=== PATIENT | male | born 1940 | race Caucasian/White ===

== ENCOUNTER → 2016-10-19 | Outpatient (CLI) | payer MEDICARE, BC ==
--- NOTE | 2016-10-19 10:55 | USB ---
Reason for exam: clinical finding. Indicated problem(s): lump or thickening in the left breast. Physical Findings: Nurse Summary: Patient complains of left breast retroareolar lump x 3-4 weeks, intermittent tenderness (nurse mm). US Breast LT Left breast ultrasound including all four quadrants, the retroareolar region and axilla demonstrates a 1.3 x 0.8 x 1.0cm irregular hypoechoic area at the posterior nipple. These results were verbally communicated with the patient and result sheet given to the patient on 10/19/16. ASSESSMENT: Incomplete: need additional imaging evaluation, BI-RAD 0 RECOMMENDATION: Follow-up diagnostic mammogram of both breasts. RAFAEL
--- NOTE | 2016-10-19 10:57 | MM ---
Reason for exam: additional evaluation requested from abnormal screening. [facility] Diagnostic Mammo w CAD CARMEN Bilateral CC and MLO view(s) were taken. The breast tissue is almost entirely fat. Asymmetric breast tissue in the left subareolar position correlates with ultrasound consistent with asymmetric gynecomastia. These results were verbally communicated with the patient and result sheet given to the patient on 10/19/16. ASSESSMENT: Benign, BI-RAD 2 RECOMMENDATION: Clinical management of both breasts. Manage patient on a clinical basis.
== END | disposition home or self-care (01) ==
LOC: RADUSWWP 08:51
PROVIDERS: ATTEND Family Medicine
DX: N63 Unspecified lump in breast (principal)
CPT/HCPCS: 76641; G0204

== ENCOUNTER → 2018-04-08 | Outpatient (CLI) | payer MEDICARE, BC ==
[2018-04-08 12:35] LABS: Blood Urea Nitrogen 17 mg/dL (9-20)
== END | disposition home or self-care (01) ==
LOC: LABWHC1 11:38
PROVIDERS: ATTEND Physical Medicine & Rehabilitation
DX: N28.9 Disorder of kidney and ureter, unspecified (principal)
CPT/HCPCS: 36415; 82565; 84520

== ENCOUNTER → 2018-10-01 | Outpatient (CLI) | payer MEDICARE, BC ==
[2018-10-01 11:52] LABS: Appearance,Urine Clear (Clear); Bilirubin,Urine Negative (Negative); Blood,Urine Negative (Negative); Color,Urine Yellow; Glucose,Urine (UA) Negative (Negative); Ketones,Urine Negative (Negative); Leukocyte Esterase,Urine Negative (Negative); Nitrite,Urine Negative (Negative); PH, Urine 5.5 (5.0-8.0); Protein,Urine Negative (Negative); Specific Gravity,Urine 1.016 (1.001-1.035); Urobilinogen,Urine <2.0 mg/dL (<2.0)
[2018-10-01 11:57] LABS: HCT 43.5 % (39.0-53.0); HGB 14.6 gm/dL (13.0-17.5); MCH 33.2 pg (25.0-35.0); MCHC 33.4 g/dL (31.0-37.0); MCV 99.3 fL (80.0-100.0); Mean Platelet Volume 7.3; Platelet Count 188 k/uL (150-450); RBC 4.38 m/uL (4.30-5.90); RDW 12.9 % (11.5-15.5); WBC 8.8 k/uL (3.8-10.6)
[2018-10-01 12:04] LABS: INR 0.9 (<1.2); Partial Thromboplastin Time 23.5 sec (22.0-30.0); Prothrombin Time 9.7 sec (9.0-12.0)
[2018-10-01 12:07] LABS: Albumin 4.2 g/dL (3.5-5.0); Calcium 9.5 mg/dL (8.4-10.2); Potassium 4.5 mmol/L (3.5-5.1); Total Bilirubin 0.6 mg/dL (0.2-1.3); Total Protein 6.3 g/dL (6.3-8.2)
== END | disposition home or self-care (01) ==
LOC: LABPAT 11:07
PROVIDERS: ATTEND Orthopaedic Surgery
DX: Z01.812 Encounter for preprocedural laboratory examination (principal)
CPT/HCPCS: 80053; 81003; 85027; 85610; 85730; 87070

== ENCOUNTER → 2018-10-03 | Outpatient (CLI) | payer MEDICARE, BC | END | disposition home or self-care (01) | LOC: LABWHC1 09:00 | PROVIDERS: ATTEND Orthopaedic Surgery | DX: Z01.812 Encounter for preprocedural laboratory examination (principal) | CPT/HCPCS: 36415; 86850; 86900; 86901 ==

== ENCOUNTER 2018-10-14 05:40 | Inpatient (IN) | payer MEDICARE, BC ==
[2018-10-09 14:23] VITALS: BMI 27.4
[~2018-10-14 05:40] MED LIST: ACETAMINOPHEN TAB 500 MG TAB PO ONE; DEXAMETHASONE SOD PHOSPHATE 10 MG/ML 1 ML VIAL IV ONE; HYDROmorphone 0.5 MG/0.5 ML SYRINGE IVP PRN; MELOXICAM 7.5 MG TAB PO ONE; MIDAZOLAM (PF) 2 MG/2 ML VIAL IV PRN; ONDANSETRON 4 MG/2 ML VIAL IVP ONE; TRANEXAMIC ACID 1,000 MG in SODIUM CHLORIDE 0.9% 50 ML IVPB ONE; ceFAZolin IN SWFI 2 GM/20 ML SYRINGE IVP ONE
[2018-10-14] MEDS ORDERED: LIDOCAINE 1% 20 ML VIAL (10MG/ML) FOR IV START SQ ONE (06:28)
[2018-10-14] MEDS: LACTATED RINGERS 1,000 ML IV SCH (06:36)
[2018-10-14] MEDS ORDERED: TRANEXAMIC ACID 1,000 MG/10 ML VIAL ONE (06:52)
[2018-10-14] MEDS ORDERED: PROPOFOL 10 MG/ML 20 ML VIAL IV ONE (06:52)
[2018-10-14] MEDS ORDERED: fentaNYL (PF) 50 MCG/ML 2 ML AMP ONE (06:52)
[2018-10-14] MEDS ORDERED: SODIUM CHLORIDE 0.9% IRRIG 1,000 ML BTL IRRIGATION ONE (06:52)
[2018-10-14] MEDS ORDERED: ePHEDrine SULFATE/0.9% NACL/PF 50 MG/5 ML SYRINGE IV ONE (06:52)
[2018-10-14] MEDS ORDERED: SODIUM CHLORIDE 0.9% 100 ML BAG ONE (06:52)
[2018-10-14] MEDS ORDERED: MIDAZOLAM 2 MG/2 ML VIAL ONE (06:52)
[2018-10-14] MEDS ORDERED: HEPARIN SODIUM,PORCINE 10,000 UNIT/ML 1 ML VIAL ONE (06:52)
[2018-10-14] MEDS ORDERED: hydrOXYzine PAMOATE 25 MG CAP PO PRN (06:56)
[2018-10-14] MEDS ORDERED: ONDANSETRON 4 MG/2 ML VIAL IVP PRN (06:56)
[2018-10-14] MEDS ORDERED: NALOXONE 0.4 MG/ML 1 ML VIAL IV PRN (06:56)
[2018-10-14] MEDS ORDERED: DIAZEPAM 5 MG TAB PO PRN (06:56)
[2018-10-14] MEDS ORDERED: MAGNESIUM HYDROXIDE 2,400 MG/10 ML CUP PO PRN (06:56)
[2018-10-14] MEDS ORDERED: HYDROmorphone 0.5 MG/0.5 ML SYRINGE IVP PRN ×3 (06:56)
[2018-10-14] MEDS ORDERED: HYDROcodone/APAP 5-325MG 1 EACH TAB PO PRN (06:56)
[2018-10-14] MEDS ORDERED: ceFAZolin 3,000 MG in SODIUM CHLORIDE 0.9% IRRIGATIO 3,000 ML IRRIGATION ONE (06:57)
[2018-10-14] MEDS: ROPIVACAINE 246.25 MG, EPINEPHrine 0.5 MG, KETOROLAC 30 MG, cloNIDine HCL/PF 80 MCG, WA... MISCELLANE ONE ×10 (07:06→08:37)
[2018-10-14] MEDS ORDERED: LACTATED RINGERS 1,000 ML IV ONE (08:39)
--- NOTE | 2018-10-14 09:01 | P.OP ---
Date of Procedure: 10/14/18 Preoperative Diagnosis: Severe osteoarthritis right hip Postoperative Diagnosis: Severe osteoarthritis right hip Procedure(s) Performed: Right total hip arthroplasty with a direct anterior approach Implants: Quintana and nephew Polarstem size 8 standard Quintana & Nephew R3, 3 hole acetabular shell, 62 mm Quintana [employer] Nephew reflection 6.5 mm cancellus screw, 20 mm 2, 25 mm Quintana & Nephew Oxinium femoral head 36 m, +8 All components were press-fit. The articulation is Oxinium on polyethylene. Anesthesia: spinal Surgeon: Jorge Alberto Sands Mixing Operator #1: Teodora Saldaña Estimated Blood Loss (ml): 450 (260 mL returned with Cell Saver) Pathology: other Condition: stable Disposition: PACU Indications for Procedure: After failure of conservative treatment we discussed the surgical and nonsurgical treatment options at length. Patient wishes to proceed with a total hip arthroplasty with a direct anterior approach. Complications specific to this procedure were discussed at length, including but not limited to infection, leg length discrepancy, dislocation, and nerve injury. Patient is aware of all these complications and informed consent was obtained Operative Findings: The operative findings are consistent with severe osteoarthritis of the right hip Description of Procedure: Patient was seen and evaluated in the preoperative area, consent was reviewed, and the surgical site was marked with a skin marker. Patient was then brought to the operating room and given prophylactic antibiotics intravenously. 1 g of Tranexamic acid was also given. A spinal anesthetic was administered by the anesthesia department. The patient was then placed on the Derby table with the bony prominences well-padded. The hip area was then prepped and draped in usual sterile fashion. A universal timeout was then performed, which confirmed the patient's name, surgical site, ALLERGIES, and procedure being performed. Next the incision site was located at 1 cm distal and 1 cm lateral to the anterior superior iliac spine. The skin and subcutaneous tissues were sharply incised. Incision was carefully dissected down to the fascia overlying the tensor fascia eddy muscle. This fascia was then incised in line with the incision. Next, using blunt finger dissection, the tensor fascia eddy muscle was dissected off its investing fascia. The muscle was then carefully retracted laterally with a cobra retractor over the lateral neck of the femur. Next, the circumflex vessels were identified and cauterized using the AquaMantis device. The anterior hip capsule was then exposed. The capsule was then opened and an inverted T fashion. Cobra retractors were then placed intracapsularly. The proximal femur was then visualized. The femoral neck was then osteotomized appropriate level above the lesser trochanter. Small amount of traction was placed with the Derby table. A small wedge of bone was then removed from the remaining femoral head. Next, using a corkscrew femoral head was easily removed from the acetabulum. On gross visual inspection, the femoral head had complete loss of articular cartilage in multiple periarticular osteophytes. Attention was then turned to the acetabulum. the acetabulum was exposed and any remaining labrum was excised. Sequential reaming of the acetabulum was performed using fluoroscopic guidance. When the appropriate size was reached, a trial was then placed. The position and fit of the trial was checked with fluoroscopy. The trial was then removed. Then, using fluoroscopic guidance, the final implant was impacted at 20 of anteversion and 40 of abduction, and fully seated in the acetabulum. 3 screws were then placed in the acetabulum. Again fluoroscopy was used to check position of the screws. Next, the liner was then impacted, with a 20 elevated liner located in the anterior superior quadrant. Component locking was confirmed. Attention was then directed to the femur. With the aid of the Derby table, the femur was externally rotated to approximately 130, extended, and abducted under the opposite leg. A side hook was then placed under the proximal femur, and the side hook elevator was used to elevate the proximal femur. Retractors were then placed. A capsular release was performed, as well as a release of the conjoined tendon, which afforded excellent visualization of the proximal femur. Next, a box osteotome was used to lateralize the proximal femur. A handicraft or hobby shop manager was then used to locate the femoral canal. Sequential broaching was then performed with appropriate size which afforded excellent fixation in the proximal femur. A trial was then placed with appropriate head and neck, and the hip was gently reduced with the aid of the Derby table. Fluoroscopy was then used to check position of the components, as well as to ensure equal leg lengths. The hip was then gently dislocated and the trials were then removed. Final implants were then impacted and the hip was again reduced. Final fluoroscopic x-rays confirmed that the components were in anatomic position, as well as equal leg lengths. The hip was also taken through range of motion, and found to be stable. The hip was then copiously irrigated with antibiotic solution with pulsatile lavage. The hip was then irrigated with Irrisept solution. The soft tissues were then injected with a ropivacaine solution, which consisted of 246.25 mg of ropivacaine, 0.5 mg of epinephrine, 30 mg of Toradol, 80 g of clonidine, and 48.45 mL of sterile water, for a total of 100 mL of fluid injected. A second dose of 1 g of Tranexamic acid was also given. the fascia was then closed with 2-0 strata fix suture. The subcutaneous tissue was closed with 3-0 Vicryl. The subcuticular tissue was closed with 3-0 strata fix suture. The skin was then closed with Dermabond glue and a sterile silver dressing. The patient was then transferred to the recovery room in stable condition. The production assistant GAGAN Guy was required due to the complexity of surgery, and the need for skilled carpenter's assistant for positioning, draping, exposure, retraction, and closure of the wound.
--- NOTE | 2018-10-14 09:02 | FL ---
EXAMINATION TYPE: FL guidance operating room, XR Hip Limited RT DATE OF EXAM: 10/14/2018 CLINICAL HISTORY: Hip pain and osteoarthritis TECHNIQUE: Fluoroscopy. Intraoperative limited views right hip. COMPARISON: None. FINDINGS: Fluoroscopic guidance was provided during right hip replacement procedure performed by Dr. Sands. A total of 1 minute 13 seconds of fluoroscopic time was utilized during the procedure and 2 spot intraoperative images are acquired. Intraoperative images acquired show metallic hardware satisfactory in position on single frontal proj ection. IMPRESSION: As Above.
--- NOTE | 2018-10-14 09:55 | XR ---
EXAMINATION TYPE: XR Hip Limited RT DATE OF EXAM: 10/14/2018 COMPARISON: NONE HISTORY: Postop TECHNIQUE: One view submitted. FINDINGS: There is a prosthetic hip in near anatomic alignment. There is soft tissue edema and emphysema. Surg ical clips in the pelvis. IMPRESSION: 1. Postoperative change. Appears in near-anatomic alignment.
[2018-10-14] MEDS ORDERED: FAMOTIDINE 20 MG TAB PO PRN (14:05)
[2018-10-14] MEDS: HYDROcodone/APAP 5-325MG 1 EACH TAB PO PRN (15:37)
[2018-10-14] MEDS: SODIUM CHLORIDE 0.9% 1,000 ML IV SCH ×2 (15:38→23:56)
[2018-10-14] MEDS: MELOXICAM 7.5 MG TAB PO SCH (15:50)
[2018-10-14] MEDS: ceFAZolin IN SWFI 2 GM/20 ML SYRINGE IVP SCH ×2 (16:16→23:57)
--- NOTE | 2018-10-14 17:48 | CONS ---
CONSULTATION DATE OF CONSULTATION: 10/14/2018 REASON FOR CONSULTATION: Medical management requested by Dr. Sands. CONSULTATION: This is a pleasant 78-year-old patient of Dr. Lester out of [place]. Chronic stable medical conditions include GERD, hyperlipidemia, hypertension and osteoarthritis in other joints. The patient has undergone right total hip arthroplasty. Postprocedure pain is controlled. No nausea, vomiting. No chest pain or short of breath. Lying in bed. Denies any cardiac history. REVIEW OF SYSTEMS: CONSTITUTIONAL: None. HEENT: None. RESPIRATORY: None. CARDIOVASCULAR: None. GASTROINTESTINAL: Heartburn. GENITOURINARY: None. MUSCULOSKELETAL: Arthritic pain in knees and the back. DERMATOLOGICAL, HEMATOLOGIC, LYMPHATIC: none. PSYCHIATRY none. NEUROLOGICAL: None. PAST MEDICAL HISTORY: GERD, hyperlipidemia, hypertension, osteoarthritis, cancer of the right ureter, right hydronephrosis, bladder cancer, skin cancer removal. PAST SURGICAL HISTORY: Back surgery, tonsillectomy, distal right with ureteral implant, skin cancer removed. SOCIAL HISTORY: . Patient smoked for about 45-50 years, stopped in 1999. Alcohol occasionally. The patient used to work as a clerk. . FAMILY HISTORY: Mother of emphysema. HOME MEDICATIONS: 1. Zocor 40 mg q.h.s. 2. Zantac 150 mg p.o. daily p.r.n. 3. Vasotec 10 mg q.h.s. 4. Aspirin 81 mg p.o. daily. 5. Tylenol 500 mg p.o. t.i.d. p.r.n. ALLERGIES: None. PHYSICAL EXAMINATION: VITAL SIGNS: Temperature 97.9, pulse 68, respiratory rate 16, blood pressure 126/68, pulse ox 96% on room air. GENERAL APPEARANCE: Average build, lying in bed, comfortable. EYES: Pupils equal. Conjunctivae normal. HEENT external appearance of nose and ears normal. Oral cavity normal. NECK: JVD not raised. Mass not palpable. RESPIRATORY: Effort normal. LUNGS: Fair air entry. CARDIOVASCULAR: First and second sounds normal. No edema. ABDOMEN: Soft, nontender. Liver and spleen not palpable. LYMPHATICS: No lymph nodes palpable in the neck or axillae. PSYCHIATRY: Alert and oriented x3. Mood and affect normal. NEUROLOGICAL: Pupils equal. Cranial nerves grossly intact. Power and sensation grossly intact. MUSCULOSKELETAL: Evidence of some osteoarthritis especially in the hands. Dressing over the right hip. INVESTIGATIONS: Blood work from October 01, 2018, shows a white count 8.8, hemoglobin 14.6, potassium 4.5, BUN and creatinine is normal. ASSESSMENT: 1. Right total hip arthroplasty. 2. Gastroesophageal reflux disease. 3. Hyperlipidemia. 4. Primary osteoarthritis, especially in knees and lower back. PLAN: Home medications are resumed. The patient has got pain medications in place. Aspirin 325 p.o. b.i.d. for DVT prophylaxis. Care was discussed with the patient. Questions were answered. Thank you Dr. Sands. Copy to Dr. Lester [place]. MMODL / IJN: [id number] /
[2018-10-14] MEDS ORDERED: LISINOPRIL 20 MG TAB PO SCH (21:00)
[2018-10-14] MEDS ORDERED: ATORVASTATIN 20 MG TAB PO SCH (21:00)
[2018-10-14] MEDS ORDERED: SENNOSIDES-DOCUSATE SODIUM 1 EACH TAB PO SCH (21:00)
[2018-10-14] MEDS: ASPIRIN 325 MG TAB PO SCH (21:08)
[2018-10-15] MEDS: HYDROcodone/APAP 5-325MG 1 EACH TAB PO PRN ×2 (01:31→12:18)
[2018-10-15] MEDS: LACTATED RINGERS 1,000 ML IV SCH (02:55)
[2018-10-15] MEDS: MELOXICAM 7.5 MG TAB PO SCH (07:02)
[2018-10-15] MEDS: ASPIRIN 325 MG TAB PO SCH (07:02)
[2018-10-15 07:06] VITALS: BP 103/63; PULSE 67; RESP 16; TEMP 98.4
[2018-10-15 08:24] LABS: Basophils % (A) 0 %; Eosinophils # (A) 0.1 k/uL (0-0.7); Eosinophils % (A) 1 %; HCT 32.2 % (39.0-53.0); Lymphocytes # (A) 1.3 k/uL (1.0-4.8); Lymphocytes % (A) 13 %; MCH 33.8 pg (25.0-35.0); MCHC 33.5 g/dL (31.0-37.0); MCV 100.9 fL (80.0-100.0); Mean Platelet Volume 7.8; Monocytes # (A) 0.7 k/uL (0-1.0); Monocytes % (A) 7 %; Neutrophils # (A) 7.5 k/uL (1.3-7.7); Neutrophils % (A) 77 %; Platelet Count 145 k/uL (150-450); RBC 3.19 m/uL (4.30-5.90); WBC 9.8 k/uL (3.8-10.6)
[2018-10-15 08:47] LABS: HGB 10.8 gm/dL (13.0-17.5)
--- NOTE | 2018-10-15 09:07 | P.DS ---
Providers Date of admission: 10/14/18 05:40 Expected date of discharge: 10/15/18 Attending physician: Jorge Alberto Sands Consults: 10/14/18 06:56 Consult Physician Routine Consulting Provider: Hugo Broussard Consult Reason/Comments: medical management Do you want consulting provider notified?: Yes Primary care physician: Enrico Lester - Discharge Diagnosis(es) (1) Osteoarthritis of right hip Current Visit: Yes Status: Acute (2) Status post total hip replacement, right Current Visit: Yes Status: Acute Hospital Course: This is a 78-year-old male with known history of degenerative arthritis of the right hip. The patient presents for evaluation. After discussion and consideration patient elects to proceed with total hip arthroplasty. The patient is seen preoperatively by Dr. Sands and medically cleared for surgery by their primary care physician. Patient is admitted to [facility] on 10/14/2018 for total hip arthroplasty. The procedures performed without complication or sequelae. The patient is doing well postoperatively. Labs and vital signs are stable on day of discharge. On day of discharge patient's hip incision is healing well. There is minimal erythema. There is no drainage noted at this time. There is minimal soft tissue swelling to the hip and thigh. Patient has full foot and ankle motion without difficulty or pain. Neurovascular status to the right lower extremity is intact. Patient is discharged home in good condition. Please see med rec for accurate list of home medications. Plan - Discharge Summary Discharge Rx Participant: No New Discharge Prescriptions: New Aspirin 325 mg PO BID #60 tab HYDROcodone/APAP 5-325MG [[place] 5-325] 1 - 2 tab PO Q6HR PRN #56 tab PRN Reason: Pain Sennosides [Senokot] 1 tab PO BID #60 tablet No Action Simvastatin [Zocor] 40 mg PO HS Aspirin 81 mg PO DAILY Ranitidine HCl [Zantac] 150 mg PO DAILY PRN PRN Reason: GERD Acetaminophen Tab [Tylenol] 500 mg PO TID PRN PRN Reason: Pain Enalapril [Vasotec] 10 mg PO HS Discharge Medication List Acetaminophen Tab [Tylenol] 500 mg PO TID PRN 10/16/14 [History] Aspirin 81 mg PO DAILY 10/16/14 [History] Enalapril [Vasotec] 10 mg PO HS 10/16/14 [History] Ranitidine HCl [Zantac] 150 mg PO DAILY PRN 10/16/14 [History] Simvastatin [Zocor] 40 mg PO HS 10/16/14 [History] Aspirin 325 mg PO BID #60 tab 10/15/18 [Rx] HYDROcodone/APAP 5-325MG [[place] 5-325] 1 - 2 tab PO Q6HR PRN #56 tab 10/15/18 [ Rx] Sennosides [Senokot] 1 tab PO BID #60 tablet 10/15/18 [Rx] Follow up Appointment(s)/Referral(s): Jorge Alberto Sands DO [Doctor of Osteopathic Medicine] - 2 Weeks Activity/Diet/Wound Care/Special Instructions: Weightbearing as tolerated with walker. Leave dressing intact. Dressing may be removed by home care nurse in 10 days. May shower with dressing on. Please follow-up with [facility] in 2 weeks and call with any questions or concerns, . Discharge Disposition: HOME WITH HOME HEALTH SERVICES
[2018-10-15] MEDS: SODIUM CHLORIDE 0.9% 1,000 ML IV SCH (14:50)
--- NOTE | 2018-10-16 00:58 | PN ---
PROGRESS NOTE DATE OF SERVICE: 10/15/2018. PRESENTING COMPLAINT: Right hip surgery. INTERVAL HISTORY: Patient is status post right hip surgery, doing better. Did work with therapy. No new issues. No chest pain or short of breath. Did tolerate his diet. No chest pain. REVIEW OF SYSTEMS: Done for constitutional, cardiovascular, GI, pulmonary, musculoskeletal; relevant findings as above. CURRENT MEDICATIONS: Reviewed. PHYSICAL EXAMINATION: Temperature 98.4, pulse 57, respiratory rate 18, blood pressure 103/63, pulse ox 96% on room air. GENERAL APPEARANCE: Sitting up, comfortable. EYES: Pupils equal. Conjunctivae normal. NECK: JVD not raised. Mass not palpable. Respiratory effort normal. LUNGS: Clear. CARDIOVASCULAR: 1st and 2nd heart sounds are normal. No edema. ABDOMEN: Soft, nontender. Liver and spleen not palpable. PSYCHIATRY: Alert and oriented x3. Mood and affect normal. INVESTIGATIONS: Hemoglobin 10.8. ASSESSMENT: 1. Right total hip arthroplasty. 2. Gastroesophageal reflux disease. 3. Hyperlipidemia. 4. Primary osteoarthritis, especially in the knees and lower back. 5. Acute blood loss anemia expected from surgery. PLAN: Patient is stable. Continue current medication and treatment plan. Patient will follow up with his family doctor shortly after discharge. Thank you, Dr. Sands. MMALYSSIAL / ELIZABETHN: [id number] /
== END 2018-10-15 15:00 | disposition home health service (06) | DRG 470 ==
LOC: 2ORMAIN 05:40 → 4SSUR 09:25
PROVIDERS: ADMIT Orthopaedic Surgery; ATTEND Orthopaedic Surgery
PROC: 0SR906A Replacement of Right Hip Joint with Oxidized Zirconium on Polyethylene Synthetic Substitute, Uncemented, Open Approach (ICD-10-PCS; principal; 2018-10-14 07:00)
DX: M16.11 Unilateral primary osteoarthritis, right hip (principal); D62 Acute posthemorrhagic anemia; E78.5 Hyperlipidemia, unspecified; I10 Essential (primary) hypertension; K21.9 Gastro-esophageal reflux disease without esophagitis; Z79.82 Long term (current) use of aspirin; Z82.5 Family history of asthma and other chronic lower respiratory diseases; Z85.51 Personal history of malignant neoplasm of bladder; Z85.828 Personal history of other malignant neoplasm of skin; Z79.899 Other long term (current) drug therapy; Z87.891 Personal history of nicotine dependence
CPT/HCPCS: 36415; 73501; 85025; 86850; 86891; 86900; 86901; 88305; 88311

== ENCOUNTER → 2019-02-14 | Outpatient (CLI) | payer MEDICARE, BC ==
--- NOTE | 2019-02-15 16:02 | US ---
EXAMINATION TYPE: US duplex aorta DATE OF EXAM: 02/14/2019 COMPARISON: CT 2016 CLINICAL HISTORY: R10.9 Abdominal Pain. Difficulty breathing EXAM MEASUREMENTS: Abdominal Aorta: Proximal: 2.3 x 2.6cm Mid: 2.0 x 2.2cm Distal: 1.8 x 1.9cm Right Iliac: 0.9 x 1.2cm Left Iliac: 1.0 x 1.2cm No AAA seen at this time. IMPRESSION: No evidence of abdominal aortic aneurysm. No sign of hemodynamic stenosis.
== END | disposition home or self-care (01) ==
LOC: RADUSWWP 15:34
PROVIDERS: ATTEND Family Medicine
DX: R10.9 Unspecified abdominal pain (principal)
CPT/HCPCS: 93979

== ENCOUNTER → 2019-10-15 | Outpatient (CLI) | payer MEDICARE, BC ==
--- NOTE | 2019-10-15 07:46 | CT ---
EXAMINATION TYPE: CT chest w con DATE OF EXAM: 10/15/2019 COMPARISON: NONE HISTORY: Other specified pleural conditions CT DLP: 689 mGycm. Automated Exposure Control for Dose Reduction was Utilized. TECHNIQUE: CT scan of the thorax is performed following with IV Contrast, patient injected with 100 ml mL of Isovue 300. FINDINGS: LUNGS: Glass opacity is seen within the right lower lobe with focal 2 mm nodular component on image 3 9. MEDIASTINUM: There are no greater than 1 cm hilar or mediastinal lymph nodes. No pericardial effusi on is seen. Moderate coronary artery calcifications of the left anterior descending coronary artery. OTHER: Mild degree hepatic steatosis is seen in the upper abdomen. There is hiatal hernia that is sma ll with herniation of mesenteric fat through the diaphragmatic hiatus. There is an anterior osteophyt es of diffuse idiopathic skeletal hyperostosis. IMPRESSION: Focal groundglass opacity in the right lower lobe. Primary diagnostic consideration is fo r infectious etiology such as pneumonia although inflammatory process is possible. 2 mm nodular compo nent is seen. Recommendation is for after treatment to ensure resolution. 2. Incidental findings of hiatal hernia with herniation of mesenteric fat into the posterior mediasti num, mild degree hepatic steatosis, moderate coronary artery calcifications, and diffuse idiopathic s keletal hyperostosis.
== END | disposition home or self-care (01) ==
LOC: RADCTMAIN 06:26
PROVIDERS: ATTEND Family Medicine
DX: J98.4 Other disorders of lung (principal); R91.1 Solitary pulmonary nodule; N17.9 Acute kidney failure, unspecified
CPT/HCPCS: 82565; 84520; 71260; 36415; Q9967

== ENCOUNTER 2019-11-21 09:05 | Observation (INO) | payer MEDICARE, BC ==
[2019-11-18 14:59] VITALS: BMI 27.4
[~2019-11-21 09:05] MED LIST changes: -ACETAMINOPHEN TAB 500 MG TAB PO ONE; -DEXAMETHASONE SOD PHOSPHATE 10 MG/ML 1 ML VIAL IV ONE; -HYDROmorphone 0.5 MG/0.5 ML SYRINGE IVP PRN; +LIDOCAINE 1% (10MG/ML) FOR IV START INTRADERMA PRN; -MELOXICAM 7.5 MG TAB PO ONE; -MIDAZOLAM (PF) 2 MG/2 ML VIAL IV PRN; -ONDANSETRON 4 MG/2 ML VIAL IVP ONE; -TRANEXAMIC ACID 1,000 MG in SODIUM CHLORIDE 0.9% 50 ML IVPB ONE; -ceFAZolin IN SWFI 2 GM/20 ML SYRINGE IVP ONE
[2019-11-21] MEDS ORDERED: ATENOLOL 25 MG TAB PO STA (11:09)
[2019-11-21] MEDS ORDERED: DILTIAZEM DRIP BOLUS FROM BAG 1 MG SOLN IV ONE (12:03)
--- NOTE | 2019-11-21 12:18 | P.CRDCN ---
History of Present Illness History of present illness: HISTORY OF PRESENTING ILLNESS This is a pleasant 79-year-old male past medical history significant for hypertension. He follows in the office with Dr. Jefferson. We have been asked to see in consultation for new onset atrial fibrillation with rapid ventricular rates. He presented to the hospital for an elective outpatient EGD with Dr. Ng this morning and upon attaching to the monitor he was found to be in atrial fibrillation with heart rates fluctuating between 140 and 150 bpm. He denies symptoms of chest pain, shortness of breath, dizziness or palpitations. DIAGNOSTICS EKG reveals atrial fibrillation with rapid ventricular rate of 125. Current cardiac medications include atenolol. REVIEW OF SYSTEMS At the time of my exam: CONSTITUTIONAL: Denies fever or chills. CARDIOVASCULAR: Denies chest pain, shortness of breath, orthopnea, PND or palpitations. RESPIRATORY: Denies cough. GASTROINTESTINAL: Denies abdominal pain, diarrhea, constipation, nausea or vomiting. MUSCULOSKELETAL: Denies myalgias. NEUROLOGIC: Denies numbness, tingling or weakness. ENDOCRINE: Denies fatigue, weight change, polydipsia or polyurina. GENITOURINARY: Denies burning, hematuria or urgency with micturation. HEMATOLOGIC: Denies history of anemia or bleeding. PHYSICAL EXAMINATION Blood pressure 136/75 heart rate 120 afebrile and maintaining oxygen saturation on room air. CONSTITUTIONAL: No apparent distress. HEENT: Head is normocephalic. Pupils are equal, round. Sclerae anicteric. Mucous membranes of the mouth are moist. No JVD. No carotid bruit. CHEST EXAMINATION: Lungs are clear to auscultation. No chest wall tenderness is noted on palpation or with deep breathing. HEART EXAMINATION: Irregular rate and rhythm. S1, S2 heard. No murmurs, gallops or rub. ABDOMEN: Soft, nontender. Positive bowel sounds. EXTREMITIES: 2+ peripheral pulses, no lower extremity edema and no calf tenderness. NEUROLOGIC EXAMINATION: Patient is awake, alert and oriented x3. ASSESSMENT Atrial fibrillation with rapid ventricular rate Hypertension PLAN Admit to Selective Care unit. Initiate cardizem infusion and bolus along with Eliquis for thromboemolic protection. Check CBC, BMP, magnesium and TSH. Obtain 2D echocardiogram and doppler study to assess cardiac structure and function. Further recommendations to follow based on clinical course. Thank you kindly for this consultation. Nurse Practitioner note has been reviewed, I agree with a documented findings and plan of care. Patient was seen and examined. Past Medical History Past Medical History: Cancer, GERD/Reflux, Hyperlipidemia, Osteoarthritis (OA) Additional Past Medical History / Comment(s): Cancer R ureter, R hydronephrosis,bladder ca, skin cancer , States no HTN-takes rx for thickened wall of herart., enlarged prostate. History of Any Multi-Drug Resistant Organisms: None Reported Past Surgical History: Back Surgery, Joint Replacement, Tonsillectomy Additional Past Surgical History / Comment(s): 03/01/16 Distal R ureterectomy with ureteral reimplant., 01/2016 R ureteroscopy with bx and vaporization, removal of skin cancer from rt shoulder/R bicep, colonoscopies with polypectomy, Total Right Hip Past Anesthesia/Blood Transfusion Reactions: No Reported Reaction Past Psychological History: No Psychological Hx Reported Additional Psychological History / Comment(s): . Smoking Status: Former smoker Past Alcohol Use History: Rare Additional Past Alcohol Use History / Comment(s): QUIT 1999- WAS UP TO 2 PPD WHEN HE QUIT- smoked 45-50 yrs. Past Drug Use History: None Reported - Past Family History Mother Family Medical History: COPD Additional Family Medical History / Comment(s): Mother at age 77 yrs from emphysema Father Family Medical History: Cancer Additional Family Medical History / Comment(s): Father of complications with his prostate cancer at the age of 65 yrs. Medications and Allergies Home Medications Medication Instructions Recorded Confirmed Type Aspirin 81 mg PO DAILY 10/16/14 11/21/19 History Simvastatin [Zocor] 40 mg PO HS 10/16/14 11/21/19 History Acetaminophen Tab [Tylenol] 1,250 mg PO TID PRN 11/18/19 11/21/19 History Famotidine 40 mg PO HS 11/18/19 11/21/19 History Metoprolol Succinate (ER) [Toprol 25 mg PO HS 11/18/19 11/21/19 History Xl] Allergies Allergy/AdvReac Type Severity Reaction Status Date / Time No Known Allergies Allergy Verified 11/18/19 14:37 Physical Exam Vitals: Vital Signs Temp Pulse Resp BP Pulse Ox 11/21/19 09:29 97.3 F L 120 H 16 136/75 100 Intake and Output 11/20/19 11/21/19 11/21/19 22:59 06:59 14:59 Other: Weight 93 kg Results Current Medications Generic Name Dose Route Start Last Admin Trade Name Freq PRN Reason Stop Dose Admin Apixaban 5 mg 11/21/19 12:15 Eliquis PO BID VY Diltiazem HCl 5 mg 11/21/19 12:03 Cardizem Drip Bolus From Bag IV 11/21/19 12:04 ONCE ONE Lactated Ringer's 1,000 mls @ 20 mls/hr 11/21/19 06:03 Lactated Ringers IV .Q24H VY Diltiazem HCl 125 mg/ Sodium 125 mls @ 5 mls/hr 11/21/19 12:15 Chloride IV .Q24H VY 5 MG/HR Lidocaine HCl 0.1 ml 11/21/19 06:03 .Xylocaine 1% Inj (10mg/Ml) For Iv Start INTRADERMA PER PROTOCOL PRN IV Start Metoprolol Tartrate 25 mg 11/21/19 21:00 Lopressor PO BID VY Non-Formulary Medication 40 mg 11/21/19 21:00 Simvastatin PO HS VY Intake and Output 11/20/19 11/21/19 11/21/19 22:59 06:59 14:59 Other: Weight 93 kg Patient Weight 11/22/19 06:59 Weight 93 kg
[2019-11-21] MEDS: LACTATED RINGERS 1,000 ML IV SCH (12:22)
[2019-11-21] MEDS: APIXABAN 5 MG TAB PO SCH ×2 (12:30→20:22)
[2019-11-21] MEDS: DILTIAZEM 125 MG in SODIUM CHLORIDE 0.9% 100 ML IV SCH (12:40)
[2019-11-21] MEDS ORDERED: diphenhydrAMINE 50 MG/ML 1 ML VIAL IVP ONE (12:48)
[2019-11-21 13:58] LABS: Basophils # (A) 0.1 k/uL (0-0.2); Basophils % (A) 1 %; Eosinophils # (A) 0.2 k/uL (0-0.7); Eosinophils % (A) 2 %; HCT 47.6 % (39.0-53.0); HGB 15.3 gm/dL (13.0-17.5); Lymphocytes # (A) 1.5 k/uL (1.0-4.8); Lymphocytes % (A) 16 %; MCH 32.2 pg (25.0-35.0); MCHC 32.1 g/dL (31.0-37.0); MCV 100.3 fL (80.0-100.0); Mean Platelet Volume 8.4; Monocytes # (A) 0.4 k/uL (0-1.0); Monocytes % (A) 4 %; Neutrophils # (A) 7.1 k/uL (1.3-7.7); Neutrophils % (A) 76 %; Platelet Count 197 k/uL (150-450); RBC 4.74 m/uL (4.30-5.90); RDW 12.9 % (11.5-15.5); WBC 9.4 k/uL (3.8-10.6)
[2019-11-21 14:01] LABS: Calcium 9.4 mg/dL (8.4-10.2); Magnesium 2.4 mg/dL (1.6-2.3); Potassium 4.1 mmol/L (3.5-5.1)
[2019-11-21] MEDS ORDERED: NALOXONE 0.4 MG/ML 1 ML VIAL IV PRN (14:02)
--- NOTE | 2019-11-21 14:10 | P.HPIM ---
History of Present Illness H&P Date: 11/21/19 Chief Complaint: Incidentally found a-fib 79-year-old male past medical history significant for hypertension and GERD presented for routine EGD. Vital signs prior to the procedure showed rapid heart rate at 140-150. EKG showed atrial fibrillation with RVR. He states that one time about a week ago when he was walking in the house he felt dizzy but that was only time. No other incidences of dizziness, no weakness, no chest pain, no shortness of breath. No palpitation. No recent illness, no fevers or chills. The reason an EGD was ordered was because he has been having symptoms of severe GERD over the past several years and just recently he spit some blood. Patient was admitted for further evaluation and management. Review of Systems Complete review of system performed, pertinent positives per HPI, otherwise negative Past Medical History Past Medical History: Cancer, GERD/Reflux, Hyperlipidemia, Osteoarthritis (OA) Additional Past Medical History / Comment(s): Cancer R ureter, R hydronephrosis,bladder ca, skin cancer , States no HTN-takes rx for thickened wall of herart., enlarged prostate. History of Any Multi-Drug Resistant Organisms: None Reported Past Surgical History: Back Surgery, Joint Replacement, Tonsillectomy Additional Past Surgical History / Comment(s): 03/01/16 Distal R ureterectomy with ureteral reimplant., 01/2016 R ureteroscopy with bx and vaporization, removal of skin cancer from rt shoulder/R bicep, colonoscopies with polypectomy, Total Right Hip Past Anesthesia/Blood Transfusion Reactions: No Reported Reaction Past Psychological History: No Psychological Hx Reported Additional Psychological History / Comment(s): . Smoking Status: Former smoker Past Alcohol Use History: Rare Additional Past Alcohol Use History / Comment(s): QUIT 1999- WAS UP TO 2 PPD WHEN HE QUIT- smoked 45-50 yrs. Past Drug Use History: None Reported - Past Family History Mother Family Medical History: COPD Additional Family Medical History / Comment(s): Mother at age 77 yrs from emphysema Father Family Medical History: Cancer Additional Family Medical History / Comment(s): Father of complications with his prostate cancer at the age of 65 yrs. Medications and Allergies Home Medications Medication Instructions Recorded Confirmed Type Aspirin 81 mg PO DAILY 10/16/14 11/21/19 History Simvastatin [Zocor] 40 mg PO HS 10/16/14 11/21/19 History Acetaminophen Tab [Tylenol] 1,250 mg PO TID PRN 11/18/19 11/21/19 History Famotidine 40 mg PO HS 11/18/19 11/21/19 History Metoprolol Succinate (ER) [Toprol 25 mg PO HS 11/18/19 11/21/19 History Xl] Allergies Allergy/AdvReac Type Severity Reaction Status Date / Time No Known Allergies Allergy Verified 11/18/19 14:37 Physical Exam Vitals: Vital Signs Temp Pulse Resp BP Pulse Ox 11/21/19 12:45 78 16 117/76 97 11/21/19 12:22 120 H 18 122/63 95 11/21/19 09:29 97.3 F L 120 H 16 136/75 100 Intake and Output 11/20/19 11/21/19 11/21/19 22:59 06:59 14:59 Other: Weight 93 kg Constitutional: No acute distress, conversant, pleasant Eyes:Anicteric sclerae, moist conjunctiva, no lid-lag, PERRLA, ENMT: Oropharynx clear, no erythema, exudates Neck: Supple, FROM, no masses, or JVD, No carotid bruits, No thyromegaly Lungs: Clear to auscultation, Clear to percussion, Normal respiratory effort, no accessory muscle use Cardiovascular: Tachycardic, irregularly irregular, No murmurs, gallops, or rubs, No peripheral edema Abdominal: Soft, Nontender, no guarding, rebound or rigidity, Normoactive bowel sounds, No hepatomegaly, No splenomegaly, No palpable mass Skin: Normal temperature, tone, texture, turgor, no induration, No subcutaneous nodules, No rash, lesions, No ulcers Extremities: No digital cyanosis, No clubbing, Pedal pulses intact and symmetrical, Radial pulses intact and symmetrical, No calf tenderness Psychiatric: Alert and oriented to person, place and time, appropriate affect, intact judgement Neuro: Muscles Strength 5/5 in all 4 extremities, Sensation to light touch grossly present throughout, Cranial nerves II-XII grossly intact, no focal sensory deficits Results CBC & Chem 7: 11/21/19 13:40 11/21/19 13:40 Assessment and Plan Plan: Atrial fibrillation with RVR Admit patient to 3 S. on telemetry Cardiology consultation Resume metoprolol Start Cardizem drip Start anticoagulation with eliquis Echocardiogram Essential hypertension GERD Stable Resume meds Admitted to observation, expected length of stay is less than 2 midnights Anticipated discharge: Home
[2019-11-21] MEDS: ACETAMINOPHEN TAB 500 MG TAB PO PRN (15:37)
[2019-11-21] MEDS: METOPROLOL TARTRATE 25 MG TAB PO SCH (20:22)
[2019-11-21] MEDS ORDERED: ATORVASTATIN 20 MG TAB PO SCH (21:00)
[2019-11-21] MEDS ORDERED: FAMOTIDINE 20 MG TAB PO SCH (21:00)
[2019-11-22] MEDS: DILTIAZEM 125 MG in SODIUM CHLORIDE 0.9% 100 ML IV SCH (05:52)
[2019-11-22] MEDS: LACTATED RINGERS 1,000 ML IV SCH (06:02)
[2019-11-22 08:23] VITALS: RESP 18
[2019-11-22] MEDS: APIXABAN 5 MG TAB PO SCH (08:25)
[2019-11-22] MEDS: METOPROLOL TARTRATE 25 MG TAB PO SCH (08:25)
[2019-11-22] MEDS: ACETAMINOPHEN TAB 500 MG TAB PO PRN (08:25)
--- NOTE | 2019-11-22 08:34 | ECHOF ---
Referral Reason:new onset afib MEASUREMENTS -------- HEIGHT: 185.4 cm WEIGHT: 93.0 kg BP: 117/76 RVIDd: 3.6 cm (< 3.3) IVSd: 1.3 cm (0.6 - 1.1) LVIDd: 4.5 cm (3.9 - 5.3) LVPWd: 1.3 cm (0.6 - 1.1) IVSs: 2.0 cm LVIDs: 3.2 cm LVPWs: 1.8 cm LA Diam: 3.5 cm (2.7 - 3.8) LAESV Index (A-L): 24.04 ml/m Ao Diam: 3.9 cm (2.0 - 3.7) AV Cusp: 2.1 cm (1.5 - 2.6) MV EXCURSION: 18.794 mm (> 18.000) MV EF SLOPE: 165 mm/s (70 - 150) EPSS: 0.4 cm RAP: 5.00 mmHg RVSP: 35.26 mmHg FINDINGS -------- Atrial fibrillation. This was a technically adequate study. The left ventricular size is normal. There is mild concentric left ventricular hypertrophy. Overa ll left ventricular systolic function is mildly impaired with, an EF between 45 - 50 %. The right ventricle is mildly enlarged. Normal LA size by volume 22+/-6 ml/m2. The right atrium is normal in size. Interatrial and interventricular septum intact. There is mild aortic valve sclerosis. Trace to mild aortic regurgitation. The mitral valve leaflets are mildly thickened. Mild tricuspid regurgitation present. There is mild pulmonary hypertension. The right ventricular systolic pressure, as measured by Doppler, is 35.26mmHg. Trace/mild (physiologic) pulmonic regurgitation. The aortic root is dilated measuring 3.9cm. Normal inferior vena cava with normal inspiratory collapse consistent with estimated right atrial pre ssure of 5 mmHg. There is no pericardial effusion. CONCLUSIONS -------- 1. Atrial fibrillation. 2. This was a technically adequate study. 3. The left ventricular size is normal. 4. There is mild concentric left ventricular hypertrophy. 5. Overall left ventricular systolic function is mildly impaired with, an EF between 45 - 50 %. 6. The right ventricle is mildly enlarged. 7. Normal LA size by volume 22+/-6 ml/m2. 8. The right atrium is normal in size. 9. Interatrial and interventricular septum intact. 10. There is mild aortic valve sclerosis. 11. Trace to mild aortic regurgitation. 12. The mitral valve leaflets are mildly thickened. 13. Mild tricuspid regurgitation present. 14. There is mild pulmonary hypertension. 15. The right ventricular systolic pressure, as measured by Doppler, is 35.26mmHg. 16. Trace/mild (physiologic) pulmonic regurgitation. 17. The aortic root is dilated measuring 3.9cm. 18. Normal inferior vena cava with normal inspiratory collapse consistent with estimated right atrial pressure of 5 mmHg. 19. There is no pericardial effusion. WATER JET LOOM FIXER: Keshia Vidal RDCS
[2019-11-22 13:09] VITALS: BP 107/68; PULSE 80; TEMP 97.7
--- NOTE | 2019-11-22 13:15 | P.DS ---
Providers Date of admission: 11/21/19 13:18 Expected date of discharge: 11/22/19 Attending physician: Otis Shaffer MD Consults: 11/21/19 10:24 Consult Physician Stat Consulting Provider: Feroz Potter Consult Reason/Comments: a fib Do you want consulting provider notified?: Already Contacted Primary care physician: Enrico Lester Hospital Course: Discharge diagnoses Atrial fibrillation with RVR Chronic Systolic CHF essential hypertension Hospital course The patient is a 79-year-old male with a past medical history of essential hypertension that is admitted with A. fib with RVR after presenting here for a planned EGD secondary to workup of hemoptysis. the patient complained of dizziness and EKG showed A. fib with RVR with a heart rate of 140-150 , the patient was started on IV Cardizem and heparin and cardiology was consulted. The patient was transitioned to DOAC and metoprolol after he became rate controlled, the patient's A. fib persisted. Echocardiogram showed a mildly diminished ejection fraction of 45-50%, right ventricle mildly enlarged without any significant valvular abnormalities . The patient was cleared by cardiology for discharge and follow up in clinic in 1 week the patient was discharged home in stable condition and this discharge process took approximately 35 minutes. Focused exam Cardiovascular: Irregularly irregular, no murmurs rubs or gallops Patient Condition at Discharge: Good Plan - Discharge Summary Discharge Rx Participant: Yes New Discharge Prescriptions: New Apixaban [Eliquis] 5 mg PO BID #60 tab Metoprolol Tartrate [Lopressor] 25 mg PO BID #60 tab Continue Simvastatin [Zocor] 40 mg PO HS Aspirin 81 mg PO DAILY Acetaminophen Tab [Tylenol] 1,250 mg PO TID PRN PRN Reason: Pain Famotidine 40 mg PO HS Discontinued Metoprolol Succinate (ER) [Toprol Xl] 25 mg PO HS Discharge Medication List Aspirin 81 mg PO DAILY 10/16/14 [History] Simvastatin [Zocor] 40 mg PO HS 10/16/14 [History] Acetaminophen Tab [Tylenol] 1,250 mg PO TID PRN 11/18/19 [History] Famotidine 40 mg PO HS 11/18/19 [History] Apixaban [Eliquis] 5 mg PO BID #60 tab 11/22/19 [Rx] Metoprolol Tartrate [Lopressor] 25 mg PO BID #60 tab 11/22/19 [Rx] Follow up Appointment(s)/Referral(s): Praveena Jefferson MD [STAFF PHYSICIAN] - 11/28/19 10:00 am Enrico Lester MD [REFERRING] - 1 Week (Please call to schedule appointment.) Patient Instructions/Handouts: A-fib (Atrial Fibrillation) (DC)
--- NOTE | 2019-11-23 11:35 | P.PN ---
Subjective Progress Note Date: 11/22/19 This is a progress note for the date of service 11/22/2019 This is a pleasant 79-year-old gentleman with history of hypertension, cardiology was requested to see the patient in consultation for new onset of atrial fibrillation. Patient had electively come to the hospital to undergo an EGD, was found to be in atrial fibrillation. At the time of my examination this morning, patient continues to be in atrial fibrillation, with a controlled ventricular response. The patient has been anticoagulated with Eliquis, he is also on Lopressor. Echocardiogram with Doppler study revealed an ejection fraction of 45-50%. Hemodynamically the patient is stable. Objective - Vital Signs Vital signs: Vital Signs Temp 97.7 F 11/22/19 12:00 Pulse 80 11/22/19 12:00 Resp 18 11/22/19 12:00 BP 107/68 11/22/19 12:00 Pulse Ox 95 11/22/19 12:00 Intake & Output 11/22/19 11/23/19 11/23/19 18:59 06:59 18:59 Intake Total 480 Balance 480 Intake: Oral 480 Other: Voiding Method Urinal # Voids 1 - Exam CONSTITUTIONAL: No apparent distress. HEENT: Head is normocephalic. Pupils are equal, round. Sclerae anicteric. Mucous membranes of the mouth are moist. No JVD. No carotid bruit. CHEST EXAMINATION: Lungs are clear to auscultation. No chest wall tenderness is noted on palpation or with deep breathing. HEART EXAMINATION: Heart S1-S2 normal, no murmurs or gallops heard. ABDOMEN: Soft, nontender. Positive bowel sounds. EXTREMITIES: 2+ peripheral pulses, no lower extremity edema and no calf tenderness. NEUROLOGIC EXAMINATION: Patient is awake, alert and oriented x3. - Labs CBC & Chem 7: 11/21/19 13:40 11/21/19 13:40 Assessment and Plan Plan: Assessment and plan #1 atrial fibrillation with rapid ventricular response, persistent #2 hypertension Plan Patient may be discharged home today on anticoagulation in the form of Eliquis 5 mg one tablet by mouth twice a day, as well as the metoprolol. We will make him a follow-up appointment in the office with Dr. Jakob Jefferson post discharge, possible elective cardioversion down the road. DNP note has been reviewed, I agree with a documented findings and plan of care. Patient was seen and examined.
== END 2019-11-22 14:23 | disposition home or self-care (01) ==
LOC: ORWHC2ENDO 09:05 → 3SCARD 13:18
PROVIDERS: ADMIT Internal Medicine; ATTEND Internal Medicine
DX: I48.20 Chronic atrial fibrillation, unspecified (principal); I11.0 Hypertensive heart disease with heart failure; I50.22 Chronic systolic (congestive) heart failure; K21.9 Gastro-esophageal reflux disease without esophagitis; E78.5 Hyperlipidemia, unspecified; M19.90 Unspecified osteoarthritis, unspecified site; Z85.51 Personal history of malignant neoplasm of bladder; Z85.828 Personal history of other malignant neoplasm of skin; N40.0 Benign prostatic hyperplasia without lower urinary tract symptoms; I08.2 Rheumatic disorders of both aortic and tricuspid valves; Z79.82 Long term (current) use of aspirin; Z79.899 Other long term (current) drug therapy; Z87.891 Personal history of nicotine dependence; Z86.010 Personal history of colon polyps; Z90.6 Acquired absence of other parts of urinary tract; Z96.641 Presence of right artificial hip joint; Z80.42 Family history of malignant neoplasm of prostate; Z82.5 Family history of asthma and other chronic lower respiratory diseases
CPT/HCPCS: 96376; 96365; 96366 ×2; 96375; 93306; 93005; 80048; 84443; 83735; 85025; G0378 ×2; J1200

== ENCOUNTER → 2020-02-03 | Outpatient (CLI) | payer MEDICARE, BC | END | disposition home or self-care (01) | LOC: LABWHC1 12:26 | PROVIDERS: ATTEND Internal Medicine Gastroenterology | DX: Z11.59 Encounter for screening for other viral diseases (principal) | CPT/HCPCS: 87635 ==

== ENCOUNTER 2020-02-04 09:16 | Day surgery (SDC) | payer MEDICARE, BC ==
[2020-02-03 09:04] VITALS: BMI 27.7
[2020-02-04] MEDS ORDERED: LACTATED RINGERS 1,000 ML IV SCH (09:38)
[2020-02-04 09:52] VITALS: TEMP 97.3
[2020-02-04] MEDS ORDERED: LIDOCAINE 1% (10MG/ML) FOR IV START INTRADERMA ONE (09:57)
[2020-02-04] MEDS ORDERED: LIDOCAINE 1% INJ 10MG/ML (20 ML MDV) ONE (10:02)
[2020-02-04] MEDS ORDERED: PROPOFOL 10 MG/ML 20 ML VIAL IV ONE (10:02)
--- NOTE | 2020-02-04 10:16 | P.PCN ---
Date of Procedure: 02/04/20 Procedure(s) Performed: BRIEF HISTORY: Patient is a 79-year-old, pleasant, white male, scheduled for an upper endoscopy as a part of evaluation of of GERD symptoms for the last several months duration. Also has occasional chronic cough and throat irritation. PROCEDURE PERFORMED: Esophagogastroduodenoscopy with biopsy. PREOPERATIVE DIAGNOSIS: GERD/chronic cough/throat irritation. IV sedation per anesthesia. PROCEDURE: After informed consent was obtained, the patient was brought into the endoscopy unit. IV sedation was administered by Anesthesia under continuous monitoring. Initially the Olympus GIF-140 video endoscope was inserted into the mouth. Esophagus intubated without any difficulty. It was gradually advanced into the stomach and duodenum and carefully examined. The bulb and the second part of the duodenum appeared normal. The scope at this time was withdrawn to the stomach, adequately insufflated with air, and upon careful examination, mucosa of the antrum had patchy areas of the prepyloric area which was biopsied. The body, cardia and the fundus appeared normal. The scope was then withdrawn into the esophagus. The GE junction was located at 39 cm from the incisors. Small sliding Hiatal hernia noted. There was one superficial erosion at the GE junction consistent with LA grade a reflux esophagitis. Rest of esophagus appeared normal. Patient tolerated the procedure well. IMPRESSION: 1. Small sliding type [place] female with one superficial erosion at the GE junction consistent with LA grade a reflux esophagitis. 2. Minimal antral gastritis. RECOMMENDATIONS: The findings of this examination were discussed with the patient as well as his family. He was advised to follow with the biopsy results. He was advised to increase the Pepcid to 40 mg twice daily for 6 weeks. He will be seen in office in 3-4 weeks
[2020-02-04 10:27] VITALS: RESP 18
[2020-02-04 10:46] VITALS: BP 143/71; PULSE 61
== END 2020-02-04 11:17 | disposition home or self-care (01) ==
LOC: ORWHC2ENDO 09:16
PROVIDERS: ATTEND Internal Medicine Gastroenterology
DX: K29.50 Unspecified chronic gastritis without bleeding (principal); K21.0 Gastro-esophageal reflux disease with esophagitis; K44.9 Diaphragmatic hernia without obstruction or gangrene; I48.91 Unspecified atrial fibrillation; I10 Essential (primary) hypertension; E78.5 Hyperlipidemia, unspecified; M19.90 Unspecified osteoarthritis, unspecified site; Z79.01 Long term (current) use of anticoagulants; Z79.82 Long term (current) use of aspirin; Z79.899 Other long term (current) drug therapy
CPT/HCPCS: 88305; 43239; J2001; J2704

== ENCOUNTER → 2020-04-29 | Outpatient (CLI) | payer MEDICARE, BC | END | disposition home or self-care (01) | LOC: LABWHC1 12:15 | PROVIDERS: ATTEND Orthopaedic Surgery | DX: Z01.812 Encounter for preprocedural laboratory examination (principal) | CPT/HCPCS: 87070 ==

== ENCOUNTER → 2020-05-03 | Outpatient (CLI) | payer MEDICARE, BC ==
[2020-05-03 09:04] LABS: HCT 45.3 % (39.0-53.0); HGB 15.3 gm/dL (13.0-17.5); MCH 33.2 pg (25.0-35.0); MCHC 33.7 g/dL (31.0-37.0); MCV 98.3 fL (80.0-100.0); Mean Platelet Volume 9.2; Platelet Count 165 k/uL (150-450); RDW 12.6 % (11.5-15.5); WBC 7.9 k/uL (3.8-10.6)
[2020-05-03 09:16] LABS: INR 0.9 (<1.2); Partial Thromboplastin Time 23.8 sec (22.0-30.0); Prothrombin Time 9.9 sec (9.0-12.0)
[2020-05-03 09:21] LABS: ALT 27 U/L (4-49); AST 21 U/L (17-59); African American GFR (CKD) >90 (>60 ml/min/1.73 sqM); Alkaline Phosphatase 89 U/L (38-126); Anion Gap 7 mmol/L; Blood Urea Nitrogen 16 mg/dL (9-20); Calcium 8.9 mg/dL (8.4-10.2); Carbon Dioxide 26 mmol/L (22-30); Chloride 110 mmol/L (98-107); Glucose 103 mg/dL (74-99); Non-African American GFR(CKD) 80 (>60 ml/min/1.73 sqM); Potassium 4.2 mmol/L (3.5-5.1); Sodium 143 mmol/L (137-145); Total Bilirubin 0.7 mg/dL (0.2-1.3)
[2020-05-03 10:10] LABS: Appearance,Urine Clear (Clear); Bilirubin,Urine Negative (Negative); Blood,Urine Negative (Negative); Color,Urine Yellow; Glucose,Urine (UA) Negative (Negative); Ketones,Urine Negative (Negative); Leukocyte Esterase,Urine Negative (Negative); Nitrite,Urine Negative (Negative); PH, Urine 5.5 (5.0-8.0); Protein,Urine Negative (Negative); Specific Gravity,Urine 1.014 (1.001-1.035); Urobilinogen,Urine <2.0 mg/dL (<2.0)
== END | disposition home or self-care (01) ==
LOC: LABPAT 08:37
PROVIDERS: ATTEND Orthopaedic Surgery
DX: Z01.818 Encounter for other preprocedural examination (principal); Z79.01 Long term (current) use of anticoagulants
CPT/HCPCS: 36415; 80053; 81003; 85027; 85610; 85730

== ENCOUNTER 2020-05-11 11:51 | Day surgery (SDC) | payer MEDICARE, BC ==
[2020-05-04 15:15] VITALS: BMI 27.7
[~2020-05-11 11:51] MED LIST changes: +ACETAMINOPHEN TAB 500 MG TAB PO ONE; +DEXAMETHASONE SOD PHOSPHATE 10 MG/ML 1 ML VIAL IV ONE; +GABAPENTIN 300 MG CAP PO ONE; +HYDROcodone/APAP 5-325MG 1 EACH TAB PO PRN; +HYDROmorphone 0.5 MG/0.5 ML SYRINGE IVP PRN; +MAGNESIUM HYDROXIDE 2,400 MG/10 ML CUP PO PRN; +MELOXICAM 7.5 MG TAB PO ONE; +MIDAZOLAM 2 MG/2 ML VIAL IV PRN; +NA PHOS,M-B/NA PHOS,DI-BA 133 ML ENEMA RECTAL PRN; +NALOXONE 0.4 MG/ML 1 ML VIAL IV PRN; +TRANEXAMIC ACID 1,000 MG in SODIUM CHLORIDE 0.9% 100 ML IVPB ONE; +bisacodyL 10 MG SUPP RECTAL PRN
[2020-05-11] MEDS ORDERED: ACETAMINOPHEN TAB 500 MG TAB ONE (12:05)
[2020-05-11] MEDS ORDERED: ONDANSETRON 4 MG/2 ML VIAL ONE (12:06)
[2020-05-11] MEDS: LACTATED RINGERS 1,000 ML IV SCH (12:26)
[2020-05-11] MEDS ORDERED: MIDAZOLAM 2 MG/2 ML VIAL IV ONE (12:42)
[2020-05-11] MEDS ORDERED: fentaNYL (PF) 50 MCG/ML 2 ML AMP ONE (13:35)
[2020-05-11] MEDS ORDERED: TRANEXAMIC ACID 1,000 MG/10 ML VIAL ONE (13:35)
[2020-05-11] MEDS ORDERED: MIDAZOLAM 2 MG/2 ML VIAL ONE (13:35)
[2020-05-11] MEDS ORDERED: PROPOFOL 10 MG/ML 20 ML VIAL IV ONE (13:35)
[2020-05-11] MEDS ORDERED: SODIUM CHLORIDE 0.9% 100 ML BAG ONE (13:35)
[2020-05-11] MEDS ORDERED: ceFAZolin 3,000 MG in SODIUM CHLORIDE 0.9% IRRIGATIO 3,000 ML IRRIGATION ONE (13:39)
[2020-05-11] MEDS: ROPIVACAINE 246.25 MG, EPINEPHrine 0.5 MG, KETOROLAC 30 MG, cloNIDine HCL/PF 80 MCG, WA... MISCELLANE ONE ×10 (14:05→14:31)
[2020-05-11] MEDS ORDERED: LACTATED RINGERS 1,000 ML IV ONE (14:20)
--- NOTE | 2020-05-11 14:56 | P.OP ---
Date of Procedure: 05/11/20 Preoperative Diagnosis: Severe osteoarthritis left knee Postoperative Diagnosis: Severe osteoarthritis left knee Procedure(s) Performed: Left total knee arthroplasty Implants: [employer] Journey II CR Oxinium cruciate retaining femoral component size 8, left [employer] Journey left nonporous tibial baseplate size 7 [employer] Journey II, XLPE CR articular insert, size 10 mm, Size 7-8 left [employer] Journey BCS resurfacing oval patellar component, 35 mm All components were cemented using Palacos R bone cement.. The articulation is Oxinium on polyethylene. Anesthesia: spinal Surgeon: Jorge Alberto Sands Flight Technician #1: Teodora Saldaña Estimated Blood Loss (ml): 25 Pathology: other (Bone and cartilage) Condition: stable Disposition: PACU Indications for Procedure: After failure of conservative treatment we discussed the surgical and nonsurgical treatment options at length. Patient wishes to proceed with a total knee arthroplasty. Complications specific to this procedure were discussed at length, including but not limited to infection, bleeding, stiffness, and nerve injury. Covid-19 was also discussed at length with the patient, and they are aware of the current policies and procedures. The patient was given the option of delaying surgery, but they elect to proceed knowing these risks. Patient is aware of all these complications and informed consent was obtained Operative Findings: The operative findings are consistent with severe osteoarthritis the left knee Description of Procedure: Patient was seen in the preoperative area consent was reviewed and operative site was marked with a skin marker. An adductor canal pain catheter was placed by anesthesia in the preoperative area. Patient was then brought to the opera tin room and given preoperative antibiotics intravenously. A spinal anesthetic was administered by the anesthesia department. A tourniquet was placed on the upper thigh and the lower extremity was prepped and draped in usual sterile fashion. A gram of transexamic acid was given. A universal timeout was then performed which confirmed the patient's name, surgical site, ALLERGIES, and consent. The lower extremity was then exsanguinated and tourniquet was inflated to 250 mmHg. A standard and anterior midline approach to the knee was performed. The skin and subcutaneous tissue was dissected down to the patellar tendon. A medial parapatellar arthrotomy was then performed. The knee was then extended, the patellar was everted, and the knee was again flexed. The patellar fat pad was removed in order to enhance exposure. Anterior horns of both menisci were excised, and a release was performed to the posterior medial aspect of the knee. On gross visual inspection, there was complete loss of articular cartilage in the medial and patellofemoral joint spaces. There was also significant cartilage damage in the lateral compartment. There were multiple periarticular osteophytes which were then removed with a Ronguer. The femoral canal was then opened with the 9.5 mm intramedullary drill. The 8 mm intramedullary ginna was then inserted into the femoral canal. The distal femoral cutting guide was then placed and set for 5 of valgus. The distal femoral cutting block was then pinned in place. The intramedullary ginna was then removed, and the distal femur was then cut. The cutting block was then removed and the cut was checked for symmetry. Next, the sizing guide was then placed and set for 3 external rotation based off of the epicondylar axis and Whitesides line. Pins were then placed and the drill holes, and the femur was sized with the sizing stylus. The pins were then removed, and the sizing guide was then removed. The spikes of the femoral block was then placed into the predrilled holes, and malleted into place. Two 45 mm pins were then placed into the fixation holes on the cutting block. An lukas wing was then used to ensure there would be no notching with the anterior cut. The anterior condyles were cut without notching. The anterior cord cut was then performed, followed by the posterior cut, posterior chamfer cut, and the anterior chamfer cut. The collateral ligaments were protected during the entire process. The cutting block was then removed, and the femoral canal was plugged with autologous bone. Attention was then directed to the tibia. The remaining ACL was removed with a Ronguer, and the tibia was then gently subluxed forward with a large bent knee retractor. Any remaining menisci was excised. The posterior lateral corner was cauterized in order to cauterize the lateral geniculate artery. The extra medullary tibial cutting guide was then placed, set for the appropriate rotation, slope, and depth of resection. The proximal tibia cutting guide was then pinned in place. Proximal tibia was then cut and sized. Next trials were then placed with the appropriate-sized insert. The knee was able to fully extend and flex to 130 and was stable throughout all range of motion. The knee was then extended, patella everted. Patella was then measured, and then using an osteotomy guide, the patella was cut at the appropriate level. The patella was then measured and drilled and the patella trial was then placed. The knee was then taken through range of motion with the patella trial and the patella tracked normally. The knee was then extended patella trial was then removed and the patella was everted. Knee was then flexed and lug holes were drilled through the femoral trial and the femoral trial was then removed. The tibial was then exposed, and the tibial broach guide was then pinned in place after it was set for the appropriate rotation to allow for the most coverage without overhang. The tibia was then reamed and broached. The cut surfaces of bone were then irrigated with pulsatile lavage. The posterior structures were injected with the ropivacaine solution. The knee was also irrigated with Irrisept solution. The components were then opened, the cement was mixed, and the components were then cemented in place. The cement was allowed to harden with the knee in full extension. While the cement was hardening, the remaining soft tissues were then injected with a ropivacaine solution, which consisted of 246.25 mg of ropivacaine, 0.5 mg of epinephrine, 30 mg of Toradol, 80 g of clonidine, and 48.45 mL of sterile water, for a total of 100 mL of fluid injected. After the cemented hardened. The tourniquet was released, and hemostasis was obtained. A second gram of transexamic acid was given. The knee was again irrigated. The knee was again taken through range of motion and found to be stable throughout all range of motion of 0-130, and the patella tracked normally. The fascia was then closed with #2 strata fix suture. The subcutaneous tissue was closed with 3-0 Vicryl and 3-0 strata fix. Dermabond glue was used for the skin and placed with the knee in flexion. The patient was placed in a sterile silver dressing. Patient was then transferred to recovery room in stable condition. The assistant kitchen manager GAGAN Guy was required due the complexity surgery and the need for a skilled assistant professor of theater. She assisted in positioning, draping, retraction, and closure of the wound.
[2020-05-11] MEDS ORDERED: ROPIVACAINE 0.2%-NS ON-Q PUMP 1,090 MG, EMPTY PAIN BALL 1 EACH MISCELLANE PRN (15:18)
--- NOTE | 2020-05-11 15:48 | XR ---
EXAMINATION TYPE: XR knee limited LT DATE OF EXAM: 05/11/2020 CLINICAL HISTORY: Left knee pain and arthritis status post total knee replacement. TECHNIQUE: Portable AP and crosstable lateral views of the left knee are obtained immediately postop eratively. COMPARISON: None FINDINGS: Metallic hardware from total left knee arthroplasty is seen and appears satisfactory in al ignment and position. There is evidence of recent surgery with diffuse subcutaneous gas and soft tis radha swelling noted. IMPRESSION: METALLIC HARDWARE FROM TOTAL LEFT KNEE ARTHROPLASTY IS SATISFACTORY IN ALIGNMENT.
[2020-05-11] MEDS: SODIUM CHLORIDE 0.9% 1,000 ML IV SCH ×2 (17:17→17:33)
--- NOTE | 2020-05-11 18:54 | P.ANPRN ---
Procedure Note - Anesthesia - Nerve Block Performed Left Adductor Canal Infusion Time Out Performed: Yes Date of Procedure: 05/11/20 Procedure Start Time: 12:43 Procedure Stop Time: 12:54 Location of Patient: PreOp Indication: Acute Post-Operative Pain, Requested by Surgeon Sedation Type: Sedate with meaningful contact maintained Preparation: Sterile Prep, Sterile Dressing Position: Supine Catheter: Indwelling Needle Types: Pajunk Needle Gauge: 21 Ultrasound used to visualize needle placement: Yes Ultrasound used to observe medication spread: Yes Blood Aspirated: No Pain Paresthesia on Injection Noted: No Resistance on Injection: Normal Image Stored and Saved: Yes Events: Uneventful and Well Tolerated (ropi .5% 20cc plus dexamethasone 4mg)
[2020-05-11] MEDS ORDERED: ACETAMINOPHEN TAB 325 MG TAB PO PRN (20:59)
[2020-05-11] MEDS ORDERED: SENNOSIDES-DOCUSATE SODIUM 1 EACH TAB PO SCH (21:00)
[2020-05-11] MEDS ORDERED: FAMOTIDINE 20 MG TAB PO SCH (21:00)
[2020-05-11] MEDS ORDERED: ATORVASTATIN 20 MG TAB PO SCH (21:00)
[2020-05-11] MEDS ORDERED: ONDANSETRON 4 MG/2 ML VIAL IVP PRN (21:10)
[2020-05-11] MEDS: METOPROLOL TARTRATE 25 MG TAB PO SCH (21:18)
--- NOTE | 2020-05-11 22:01 | P.CONS ---
History of Present Illness - Reason for Consult Consult date: 05/11/20 medical management Requesting physician: Jorge Alberto Sands - Chief Complaint Left knee surgery - History of Present Illness Consultation: This is a pleasant 80-year-old patient of Dr. rush. Chronic stable medical conditions include atrial fibrillation on xarelto, GERD, hypertension, osteoarthritis, BPH. Today underwent a left total knee arthroplasty. Pain is controlled. (The dressing. No nausea vomiting. Did tolerate some supper. Propped up in bed awake. No chest pain or short of breath. Review of systems: GEN.: None EYES: None HEENT: None NECK: None RESPIRATORY: None CARDIOVASCULAR: None GASTROINTESTINAL: None GENITOURINARY: Decreased urine flow MUSCULOSKELETAL: Joint pains LYMPHATICS: None HEMATOLOGICAL: None PSYCHIATRY: None NEUROLOGICAL: None Past medical history to include: Atrial fibrillation, GERD, hypertension, osteoarthritis, BPH Social history: . Alcohol rarely. Smoked 2 packs a day for close to 50 years stopped in 1999. Physical examination: VITAL SIGNS: 97.7, 71, 20, 124/70, 98% on 2 L GENERAL: BMI 27.6, sitting up awake]. EYES: Pupils equal. Conjunctiva normal. HEENT: External appearance of nose and ears normal, oral cavity grossly normal. NECK: JVD not raised; masses not palpable. HEART: First and second heart sounds are normal; no edema. LUNGS: Respiratory rate normal; clear to auscultation. ABDOMEN: Soft, nontender, liver spleen not palpable, no masses palpable. PSYCH: Alert and oriented x3; mood and affect normal. MUSCULAR skeletal: Evidence of OA, left inner dressing NEUROLOGICAL: Cranial nerves grossly intact; no facial asymmetry, power and sensation grossly intact. LYMPHATICS: No lymph nodes palpable in the axilla and neck INVESTIGATIONS, reviewed in the clinical context: Lab work from May 03: White count 7.9 hemoglobin 15.3 platelets 165 potassium 4.2 creatinine 0.89 Assessment: Left total knee arthroplasty -Persistent atrial fibrillation chronically and xarelto -GERD -Essential hypertension -Primary osteoarthritis -BPH Plan: Home medications to be continued. Patient is felt to be resumed tomorrow. Patient is also has dressing over the left knee. Diet is being advanced. Care was discussed with the patient. Questions answered. Thank you Dr. 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) skin cancer , States no HTN- takes rx for thickened wall of heart., enlarged prostate,steroid injection April 2020 History of Any Multi-Drug Resistant Organisms: None Reported Past Surgical History: Back Surgery, Joint Replacement, Tonsillectomy Additional Past Surgical History / Comment(s): 03/01/16 Distal R ureterectomy with ureteral reimplant., 01/2016 R ureteroscopy with bx and vaporization, removal of skin cancer from rt shoulder/R bicep, colonoscopies with polypectomy, Total Right Hip Past Anesthesia/Blood Transfusion Reactions: No Reported Reaction Additional Past Anesthesia/Blood Transfusion Reaction / Comm: no hx blood transfusion Past Psychological History: No Psychological Hx Reported Additional Psychological History / Comment(s): . Smoking Status: Former smoker Past Alcohol Use History: Rare Additional Past Alcohol Use History / Comment(s): QUIT 1999- WAS UP TO 2 PPD WHEN HE QUIT- smoked 45-50 yrs. Past Drug Use History: None Reported - Past Family History Mother Family Medical History: COPD Additional Family Medical History / Comment(s): Mother at age 77 yrs from emphysema Father Family Medical History: Cancer Additional Family Medical History / Comment(s): Father of complications with his prostate cancer at the age of 65 yrs. Medications and Allergies Home Medications Medication Instructions Recorded Confirmed Type Aspirin 81 mg PO DAILY 10/16/14 05/04/20 History Simvastatin [Zocor] 40 mg PO HS 10/16/14 05/04/20 History Acetaminophen Tab [Tylenol] 1,250 mg PO TID PRN 11/18/19 05/04/20 History Famotidine 40 mg PO HS 11/18/19 05/04/20 History Metoprolol Tartrate [Lopressor] 25 mg PO BID #60 tab 11/22/19 05/04/20 Rx Rivaroxaban [Xarelto] 10 mg PO DAILY 02/04/20 05/04/20 History Allergies Allergy/AdvReac Type Severity Reaction Status Date / Time No Known Allergies Allergy Verified 02/04/20 09:45 Physical Exam Vitals: Vital Signs Temp Pulse Pulse Pulse Resp BP BP 05/11/20 19:30 97.7 F 71 20 124/70 05/11/20 19:28 16 05/11/20 16:45 73 16 124/66 05/11/20 16:30 72 16 115/65 05/11/20 16:15 76 16 127/72 05/11/20 16:00 72 16 126/70 05/11/20 15:45 77 16 116/65 05/11/20 15:30 71 16 118/68 05/11/20 15:17 96.8 F L 71 16 116/66 05/11/20 12:55 78 16 111/73 05/11/20 12:16 97.7 F 68 20 146/87 Pulse Ox 05/11/20 19:30 98 05/11/20 19:28 05/11/20 16:45 99 05/11/20 16:30 98 05/11/20 16:15 95 05/11/20 16:00 97 05/11/20 15:45 95 05/11/20 15:30 94 L 05/11/20 15:17 94 L 05/11/20 12:55 97 05/11/20 12:16 97 Intake and Output 05/11/20 05/11/20 05/11/20 06:59 14:59 22:59 Intake Total 1551 250 Output Total 25 Balance 1526 250 Intake: IV 1551 250 Output: Estimated Blood Loss 25 Other: Weight 94.8 kg 94.8 kg
[2020-05-12] MEDS: LACTATED RINGERS 1,000 ML IV SCH (05:38)
--- NOTE | 2020-05-12 07:03 | P.PN ---
Progress Note - Text 05/12/20 653am 80-year-old male status post total knee replacement by Dr. Azul height off. Patient has an On-Q pump for postop pain control with the solution running at 8 mL an hour with a VAS of 0. Plan to continue On-Q pump infusion
[2020-05-12 07:38] VITALS: BP 108/65; PULSE 72; RESP 16; TEMP 98
--- NOTE | 2020-05-12 08:10 | P.DS ---
Providers Expected date of discharge: 05/12/20 Attending physician: Jorge Alberto Sands Consults: 05/11/20 11:51 Consult Physician Routine Consulting Provider: Hugo Broussard Consult Reason/Comments: medical management and anticoagulation Do you want consulting provider notified?: Yes Primary care physician: Stated None - Discharge Diagnosis(es) (1) Osteoarthritis of left knee Current Visit: Yes Status: Acute (2) Status post total left knee replacement Current Visit: Yes Status: Acute Hospital Course: This is a 80-year-old male with known history of degenerative arthritis of the left knee. The patient presents for evaluation. After discussion and consideration patient elects to proceed with total knee arthroplasty. The patient is seen preoperatively by Dr. Sands and medically cleared for surgery by their primary care physician. Patient is admitted to [facility] on 05/11/2020 for total knee arthroplasty. The procedures performed without complication or sequelae. The patient is doing well postoperatively. Labs and vital signs are stable on day of discharge. On day of discharge patient's knee incision is healing well. There is minimal erythema. There is no drainage noted at this time. There is minimal soft tissue swelling to the knee. Patient has full foot and ankle motion without difficulty or pain. Calf is soft and nontender to palpation. Neurovascular status to the left lower extremity is intact. Patient is discharged home in good condition. Opioid start talking form is reviewed and signed at patient bedside. Please see med rec for accurate list of home medications. Plan - Discharge Summary Discharge Rx Participant: Yes New Discharge Prescriptions: New HYDROcodone/APAP 5-325MG [[place] 5-325] 1 - 2 tab PO Q6HR PRN #48 tab PRN Reason: Pain Sennosides [Senokot] 2 tab PO DAILY PRN #60 tablet PRN Reason: Constipation No Action Simvastatin [Zocor] 40 mg PO HS Aspirin 81 mg PO DAILY Acetaminophen Tab [Tylenol] 1,250 mg PO TID PRN PRN Reason: Pain Famotidine 40 mg PO HS Metoprolol Tartrate [Lopressor] 25 mg PO BID #60 tab Rivaroxaban [Xarelto] 10 mg PO DAILY Discharge Medication List Aspirin 81 mg PO DAILY 10/16/14 [History] Simvastatin [Zocor] 40 mg PO HS 10/16/14 [History] Acetaminophen Tab [Tylenol] 1,250 mg PO TID PRN 11/18/19 [History] Famotidine 40 mg PO HS 11/18/19 [History] Metoprolol Tartrate [Lopressor] 25 mg PO BID #60 tab 11/22/19 [Rx] Rivaroxaban [Xarelto] 10 mg PO DAILY 02/04/20 [History] HYDROcodone/APAP 5-325MG [[place] 5-325] 1 - 2 tab PO Q6HR PRN #48 tab 05/12/20 [Rx] Sennosides [Senokot] 2 tab PO DAILY PRN #60 tablet 05/12/20 [Rx] Follow up Appointment(s)/Referral(s): Jorge Alberto Sands DO [Doctor of Osteopathic Medicine] - 2 Weeks Activity/Diet/Wound Care/Special Instructions: Weightbearing as tolerated with a walker. CPM 5-6h daily as tolerated. Leave dressing intact. May be removed by home care nurse or by patient in 10 days. May shower with dressing on. Recommend use of compression stockings daily until follow up to help prevent swe lling and blood clots. May remove at night before sleeping. Continue Xarelto and aspirin. Please follow up with [facility] and call with any questions or concerns, . Discharge Disposition: HOME WITH HOME HEALTH SERVICES
[2020-05-12] MEDS: METOPROLOL TARTRATE 25 MG TAB PO SCH (08:16)
[2020-05-12] MEDS ORDERED: ASPIRIN 81 MG PO SCH (09:00)
[2020-05-12] MEDS ORDERED: RIVAROXABAN 10 MG TAB PO SCH (09:00)
[2020-05-12 11:18] LABS: Basophils % (A) 0 %; Eosinophils % (A) 0 %; HCT 38.8 % (39.0-53.0); HGB 12.4 gm/dL (13.0-17.5); Lymphocytes # (A) 0.8 k/uL (1.0-4.8); Lymphocytes % (A) 4 %; MCHC 31.9 g/dL (31.0-37.0); MCV 100.3 fL (80.0-100.0); Mean Platelet Volume 9.5; Monocytes # (A) 0.7 k/uL (0-1.0); Monocytes % (A) 4 %; Neutrophils # (A) 18.5 k/uL (1.3-7.7); Neutrophils % (A) 92 %; Platelet Count 164 k/uL (150-450); RBC 3.87 m/uL (4.30-5.90); RDW 12.8 % (11.5-15.5); WBC 20.1 k/uL (3.8-10.6)
== END 2020-05-12 10:52 | disposition home health service (06) ==
LOC: OR 11:51 → 4SSUR 17:05 → OR 05-12 10:52
PROVIDERS: ATTEND Orthopaedic Surgery
DX: M17.12 Unilateral primary osteoarthritis, left knee (principal); M25.762 Osteophyte, left knee; I48.91 Unspecified atrial fibrillation; I51.9 Heart disease, unspecified; B02.29 Other postherpetic nervous system involvement; E78.00 Pure hypercholesterolemia, unspecified; E78.5 Hyperlipidemia, unspecified; E78.9 Disorder of lipoprotein metabolism, unspecified; H90.5 Unspecified sensorineural hearing loss; H81.10 Benign paroxysmal vertigo, unspecified ear; I10 Essential (primary) hypertension; K21.9 Gastro-esophageal reflux disease without esophagitis; Z82.49 Family history of ischemic heart disease and other diseases of the circulatory system; Z97.3 Presence of spectacles and contact lenses; Z85.51 Personal history of malignant neoplasm of bladder; Z85.828 Personal history of other malignant neoplasm of skin; Z85.54 Personal history of malignant neoplasm of ureter; Z87.891 Personal history of nicotine dependence; Z98.890 Other specified postprocedural states; I48.20 Chronic atrial fibrillation, unspecified; R26.9 Unspecified abnormalities of gait and mobility; N40.0 Benign prostatic hyperplasia without lower urinary tract symptoms; N42.9 Disorder of prostate, unspecified; Z96.641 Presence of right artificial hip joint; Z82.5 Family history of asthma and other chronic lower respiratory diseases; Z80.42 Family history of malignant neoplasm of prostate; Z79.01 Long term (current) use of anticoagulants; Z79.82 Long term (current) use of aspirin; Z79.899 Other long term (current) drug therapy
CPT/HCPCS: 97110; 97161; 64448; 76942; 85025; 73560; 27447; C1713; C1776; J2250; J0171; J1100; J0690 ×3; J2405; J3010; J1885; J2795 ×2; J2704; J0735; 88305; 88311

== ENCOUNTER 2020-06-15 19:02 | Emergency (ER) | payer MEDICARE, BC ==
[2020-06-15 19:09] VITALS: BP 147/80; PULSE 58; RESP 18; TEMP 100.2
[2020-06-15] MEDS ORDERED: PANTOPRAZOLE 40 MG/10 ML VIAL IVP STA (19:28)
--- NOTE | 2020-06-15 19:30 | ED ---
General Adult HPI - General Chief complaint: GI Bleed Stated complaint: GI Bleed Time Seen by Provider: 06/15/20 19:16 Source: patient Mode of arrival: ambulatory Limitations: no limitations - History of Present Illness Initial comments: Dictation was produced using Zencoder dictation software. please excuse any grammatical, word or spelling errors. This patient was cared for during a federal and state declared state of emergency secondary to Covid 19 Chief Complaint: 80-year-old male presents with black tarry stool. History of Present Illness: An 80-year-old male he recently had total knee replacement done to the left knee. Today he first noted that his stool was black and running. Patient has been dealing with on-and-off crampy abdominal pain for the last 3-4 days. He's been on Pepto-Bismol for the last 2-3 days. Patient has any abdominal pain currently. He does have some suprapubic pain. Patient denies any lightheadedness. Denies any constitutional symptoms. He has no history of GI bleed. He does take blood thinners. The ROS documented in this emergency department record has been reviewed and confirmed by me. Those systems with pertinent positive or negative responses have been documented in the HPI. All other systems are other negative and/or noncontributory. PHYSICAL EXAM: General Impression: Alert and oriented x3, not in acute distress HEENT: Normocephalic atraumatic, extra-ocular movements intact, pupils equal and reactive to light bilaterally, mucous membranes moist. Cardiovascular: Heart regular rate and rhythm Chest: Able to complete full sentences, no retractions, no tachypnea Abdomen: abdomen soft, non-tender, non-distended, no organomegaly Musculoskeletal: Pulses present and equal in all extremities, no peripheral edema Motor: no focal deficits noted Neurological: CN II-XII grossly intact, no focal motor or sensory deficits noted Rectal: Dark tarry stool Skin: Intact with no visualized rashes Psych: Normal affect and mood ED course: 80-year-old male presents with dark tarry stool. Vital signs upon arrival shows interval 100.2, pulse vital signs within acceptable limits. Labs unremarkable. Hemoglobin 14.5. Metabolic panel is negative. Urinalysis is negative. Cervical blood is negative. Chest and abdominal x-rays negative. Patient talks those likely secondary to Pepto-Bismol intake. Patient be discharged. EKG interpretation: Ventricular rate 70, normal sinus rhythm,. Interval 172, QRS 90, QTC 419. No CA prolongation, no QTC prolongation, no ST or T-wave ch anges noted. . Overall, this EKG is unremarkable - Related Data Home Medications Medication Instructions Recorded Confirmed Aspirin 81 mg PO DAILY 10/16/14 05/04/20 Simvastatin [Zocor] 40 mg PO HS 10/16/14 05/04/20 Acetaminophen Tab [Tylenol] 1,250 mg PO TID PRN 11/18/19 05/04/20 Famotidine 40 mg PO HS 11/18/19 05/04/20 Rivaroxaban [Xarelto] 10 mg PO DAILY 02/04/20 05/04/20 Previous Rx's Medication Instructions Recorded Metoprolol Tartrate [Lopressor] 25 mg PO BID #60 tab 11/22/19 HYDROcodone/APAP 5-325MG [[employer] 1 - 2 tab PO Q6HR PRN #48 tab 05/12/20 5-325] Sennosides [Senokot] 2 tab PO DAILY PRN #60 tablet 05/12/20 Allergies Allergy/AdvReac Type Severity Reaction Status Date / Time No Known Allergies Allergy Verified 06/15/20 19:09 Review of Systems ROS Statement: Those systems with pertinent positive or pertinent negative responses have been documented in the HPI. ROS Other: All systems not noted in ROS Statement are negative. Past Medical History Past Medical History: Cancer, GERD/Reflux, Hyperlipidemia, Osteoarthritis (OA) Additional Past Medical History / Comment(s): Cancer R ureter, R hydronephrosis,bladder ca, skin cancer , States no HTN-takes rx for thickened wall of herart., enlarged prostate. History of Any Multi-Drug Resistant Organisms: None Reported Past Surgical History: Back Surgery, Joint Replacement, Tonsillectomy Additional Past Surgical History / Comment(s): 03/01/16 Distal R ureterectomy with ureteral reimplant., 01/2016 R ureteroscopy with bx and vaporization, removal of skin cancer from rt shoulder/R bicep, colonoscopies with polypectomy, Total Right Hip Past Anesthesia/Blood Transfusion Reactions: No Reported Reaction Past Psychological History: No Psychological Hx Reported Smoking Status: Former smoker Past Alcohol Use History: Rare Past Drug Use History: None Reported - Past Family History Mother Family Medical History: COPD Additional Family Medical History / Comment(s): Mother at age 77 yrs from emphysema Father Family Medical History: Cancer Additional Family Medical History / Comment(s): Father of complications with his prostate cancer at the age of 65 yrs. General Exam Limitations: no limitations Course Vital Signs 06/15/20 19:05 Temperature 100.2 F H Pulse Rate 58 L Respiratory 18 Rate Blood Pressure 147/80 O2 Sat by Pulse 100 Oximetry Medical Decision Making - Lab Data Result diagrams: 06/15/20 19:31 06/15/20 19:31 Lab Results 06/15/20 06/15/20 06/15/20 Range/Units 19:31 19:31 19:31 WBC 7.4 (3.8-10.6) k/uL RBC 4.35 (4.30-5.90) m/uL Hgb 14.5 (13.0-17.5) gm/dL Hct 44.0 (39.0-53.0) % MCV 101.2 H (80.0-100.0) fL MCH 33.2 (25.0-35.0) pg MCHC 32.8 (31.0-37.0) g/dL RDW 12.5 (11.5-15.5) % Plt Count 178 (150-450) k/uL Neutrophils % 63 % Lymphocytes % 22 % Monocytes % 8 % Eosinophils % 5 % Basophils % 1 % Neutrophils # 4.7 (1.3-7.7) k/uL Lymphocytes # 1.6 (1.0-4.8) k/uL Monocytes # 0.6 (0-1.0) k/uL Eosinophils # 0.4 (0-0.7) k/uL Basophils # 0.1 (0-0.2) k/uL Sodium 142 (137-145) mmol/L Potassium 4.1 (3.5-5.1) mmol/L Chloride 110 H (98-107) mmol/L Carbon Dioxide 26 (22-30) mmol/L Anion Gap 6 mmol/L BUN 16 (9-20) mg/dL Creatinine 0.99 (0.66-1.25) mg/dL Est GFR (CKD-EPI)AfAm 82 (>60 ml/min/1.73 sqM) Est GFR (CKD-EPI)NonAf 71 (>60 ml/min/1.73 sqM) Glucose 118 H (74-99) mg/dL Calcium 9.0 (8.4-10.2) mg/dL Total Bilirubin 0.5 (0.2-1.3) mg/dL AST 19 (17-59) U/L ALT 11 (4-49) U/L Alkaline Phosphatase 88 (38-126) U/L Total Protein 5.8 L (6.3-8.2) g/dL Albumin 3.9 (3.5-5.0) g/dL Urine Color Yellow Urine Appearance Clear (Clear) Urine pH 6.0 (5.0-8.0) Ur Specific [place] 1.017 (1.001-1.035) Urine Protein Negative (Negative) Urine Glucose (UA) Negative (Negative) Urine Ketones Negative (Negative) Urine Blood Negative (Negative) Urine Nitrite Negative (Negative) Urine Bilirubin Negative (Negative) Urine Urobilinogen <2.0 (<2.0) mg/dL Ur Leukocyte Esterase Negative (Negative) Stool Occult Blood (Negative) 06/15/20 Range/Units 19:31 WBC (3.8-10.6) k/uL RBC (4.30-5.90) m/uL Hgb (13.0-17.5) gm/dL Hct (39.0-53.0) % MCV (80.0-100.0) fL MCH (25.0-35.0) pg MCHC (31.0-37.0) g/dL RDW (11.5-15.5) % Plt Count (150-450) k/uL Neutrophils % % Lymphocytes % % Monocytes % % Eosinophils % % Basophils % % Neutrophils # (1.3-7.7) k/uL Lymphocytes # (1.0-4.8) k/uL Monocytes # (0-1.0) k/uL Eosinophils # (0-0.7) k/uL Basophils # (0-0.2) k/uL Sodium (137-145) mmol/L Potassium (3.5-5.1) mmol/L Chloride (98-107) mmol/L Carbon Dioxide (22-30) mmol/L Anion Gap mmol/L BUN (9-20) mg/dL Creatinine (0.66-1.25) mg/dL Est GFR (CKD-EPI)AfAm (>60 ml/min/1.73 sqM) Est GFR (CKD-EPI)NonAf (>60 ml/min/1.73 sqM) Glucose (74-99) mg/dL Calcium (8.4-10.2) mg/dL Total Bilirubin (0.2-1.3) mg/dL AST (17-59) U/L ALT (4-49) U/L Alkaline Phosphatase (38-126) U/L Total Protein (6.3-8.2) g/dL Albumin (3.5-5.0) g/dL Urine Color Urine Appearance (Clear) Urine pH (5.0-8.0) Ur Specific [place] (1.001-1.035) Urine Protein (Negative) Urine Glucose (UA) (Negative) Urine Ketones (Negative) Urine Blood (Negative) Urine Nitrite (Negative) Urine Bilirubin (Negative) Urine Urobilinogen (<2.0) mg/dL Ur Leukocyte Esterase (Negative) Stool Occult Blood Negative (Negative) Disposition Clinical Impression: Dark stools Disposition: HOME SELF-CARE Condition: Good Instructions (If sedation given, give patient instructions): Gastrointestinal Bleeding (ED) Is patient prescribed a controlled substance at d/c from ED?: No Referrals: Enrico Lester MD [Primary Care Provider] - 1-2 days Time of Disposition: 20:09
[2020-06-15 19:48] LABS: Basophils # (A) 0.1 k/uL (0-0.2); Basophils % (A) 1 %; Eosinophils # (A) 0.4 k/uL (0-0.7); Eosinophils % (A) 5 %; HGB 14.5 gm/dL (13.0-17.5); Lymphocytes # (A) 1.6 k/uL (1.0-4.8); Lymphocytes % (A) 22 %; MCH 33.2 pg (25.0-35.0); MCHC 32.8 g/dL (31.0-37.0); MCV 101.2 fL (80.0-100.0); Mean Platelet Volume 8.8; Monocytes # (A) 0.6 k/uL (0-1.0); Monocytes % (A) 8 %; Neutrophils # (A) 4.7 k/uL (1.3-7.7); Neutrophils % (A) 63 %; Platelet Count 178 k/uL (150-450); RBC 4.35 m/uL (4.30-5.90); RDW 12.5 % (11.5-15.5); WBC 7.4 k/uL (3.8-10.6)
[2020-06-15 19:51] LABS: Appearance,Urine Clear (Clear); Bilirubin,Urine Negative (Negative); Blood,Urine Negative (Negative); Color,Urine Yellow; Glucose,Urine (UA) Negative (Negative); Ketones,Urine Negative (Negative); Leukocyte Esterase,Urine Negative (Negative); Nitrite,Urine Negative (Negative); Protein,Urine Negative (Negative); Specific Gravity,Urine 1.017 (1.001-1.035); Urobilinogen,Urine <2.0 mg/dL (<2.0)
[2020-06-15 19:59] LABS: Albumin 3.9 g/dL (3.5-5.0); Potassium 4.1 mmol/L (3.5-5.1); Total Bilirubin 0.5 mg/dL (0.2-1.3); Total Protein 5.8 g/dL (6.3-8.2)
--- NOTE | 2020-06-15 19:59 | XR ---
EXAMINATION TYPE: XR abdomen acute w cxr DATE OF EXAM: 06/15/2020 CLINICAL HISTORY: Black stools. Chest and abdominal pain. TECHNIQUE: Single frontal view of chest is obtained. Supine and upright views of the abdomen are acq uired. COMPARISON: CT chest October 15, 2019 CT abdomen and pelvis April 01, 2016. FINDINGS: There is background mild to moderate underlying emphysematous change. Lungs remain clear. C ardiac silhouette size remains within normal limits. Osseous structures are intact. Gas is noted in nondistended stomach bubble. Some paucity of bowel gas. Visualize gas seen in nondis tended small and large bowel loops. Spleen size stable upper limits of normal. Left-sided pelvic phle boliths. Right-sided pelvic surgical clips. Metallic hardware right hip arthroplasty partially imaged . Moderate disc space narrowing with endplate sclerosis right L4-L5 level. No pneumoperitoneum. IMPRESSION: 1. Chronic emphysematous change without acute pulmonary process. 2. Overall nonspecific but likely nonobstructive bowel gas pattern.
[2020-06-15 20:56] LABS: Partial Thromboplastin Time 26.5 sec (22.0-30.0); Prothrombin Time 10.5 sec (9.0-12.0)
== END 2020-06-15 20:17 | disposition home or self-care (01) ==
LOC: EC 19:02
DX: K92.1 Melena (principal); R10.30 Lower abdominal pain, unspecified; M19.90 Unspecified osteoarthritis, unspecified site; K21.9 Gastro-esophageal reflux disease without esophagitis; E78.5 Hyperlipidemia, unspecified; Z79.82 Long term (current) use of aspirin; Z79.899 Other long term (current) drug therapy; Z80.42 Family history of malignant neoplasm of prostate; Z87.891 Personal history of nicotine dependence; Z85.54 Personal history of malignant neoplasm of ureter; Z85.51 Personal history of malignant neoplasm of bladder; Z85.828 Personal history of other malignant neoplasm of skin; Z96.652 Presence of left artificial knee joint; Z96.641 Presence of right artificial hip joint
CPT/HCPCS: 36415; 93005; 80053; 85025; 85610; 85730; 82272; 81003; 74022; 99285; 96374; C9113

== ENCOUNTER → 2020-10-21 | Outpatient (CLI) | payer MEDICARE, BC ==
--- NOTE | 2020-10-21 10:29 | MM ---
Reason for exam: clinical finding. Last mammogram was performed 4 years ago. History: Patient history of other cancer. Indicated problem(s): palpable abnormality in the left breast. Physical Findings: Nurse Summary: 2-3cm nodule in the left breast at 12-1 o'clock around nipple (nurse TM). MG 3D Diag Mammo W/Cad CARMEN Bilateral CC and MLO view(s) were taken. Prior study comparison: October 19, 2016, bilateral MG diagnostic mammo w CAD CAMREN. There are scattered fibroglandular densities. May have skin thickening at BB. No significant new findings when compared with previous films. These results were verbally communicated with the patient and result sheet given to the patient on 10/21/20. ASSESSMENT: Benign, BI-RAD 2 RECOMMENDATION: Clinical management of both breasts. Manage patient on a clinical basis.
== END | disposition home or self-care (01) ==
LOC: RADMAMWWP 07:06
PROVIDERS: ATTEND Family Medicine
DX: N63.20 Unspecified lump in the left breast, unspecified quadrant (principal)
CPT/HCPCS: 77066; G0279; 77062

== ENCOUNTER → 2020-11-02 | Outpatient (CLI) | payer MEDICARE, BC ==
--- NOTE | 2020-11-02 10:02 | USB ---
Reason for exam: clinical finding. History: Patient history of other cancer. Indicated problem(s): lump or thickening in the left breast. Physical Findings: Nurse Summary: Patient complains of left nipple pain and lump x 1 month, 3cm retroareaolar left breast lump (nurse mj). US Breast Limited LT Left limited breast ultrasound including focal area of concern, retroareolar and axilla demonstrates a 1.4 x 0.6 x 1.5cm irregular, hypoechoic lesion at the nipple BB. Right limited breast ultrasound including focal area of concern, retroareolar and axilla demonstrates a 1.0 x 0.6 x 1.3cm irregular, hypoechoic lesion at the nipple. Consistent with persistent flame shaped gynecomastia. These results were verbally communicated with the patient and result sheet given to the patient on 11/02/20. ASSESSMENT: Benign, BI-RAD 2 RECOMMENDATION: Clinical management of the left breast. Manage patient on a clinical basis.
== END | disposition home or self-care (01) ==
LOC: RADUSWWP 07:33
PROVIDERS: ATTEND Family Medicine
DX: N63.20 Unspecified lump in the left breast, unspecified quadrant (principal)

== ENCOUNTER → 2020-11-22 | Outpatient (CLI) | payer MEDICARE, BC ==
[2020-11-22 09:39] LABS: HCT 46.6 % (39.0-53.0); HGB 15.8 gm/dL (13.0-17.5); MCH 33.5 pg (25.0-35.0); MCHC 33.9 g/dL (31.0-37.0); Mean Platelet Volume 8.6; Platelet Count 167 k/uL (150-450); RBC 4.71 m/uL (4.30-5.90); RDW 12.5 % (11.5-15.5); WBC 7.9 k/uL (3.8-10.6)
[2020-11-22 10:02] LABS: Potassium 4.5 mmol/L (3.5-5.1)
== END | disposition home or self-care (01) ==
LOC: LABPAT 08:55
PROVIDERS: ATTEND Internal Medicine Interventional Cardiology
DX: Z01.812 Encounter for preprocedural laboratory examination (principal); I48.0 Paroxysmal atrial fibrillation
CPT/HCPCS: 36415; 80051; 82565; 84520; 85027

== ENCOUNTER 2020-12-07 07:05 | Day surgery (SDC) | payer MEDICARE, BC ==
[2020-12-03 11:04] VITALS: BMI 28.3
[~2020-12-07 07:05] MED LIST changes: -ACETAMINOPHEN TAB 500 MG TAB PO ONE; -DEXAMETHASONE SOD PHOSPHATE 10 MG/ML 1 ML VIAL IV ONE; -GABAPENTIN 300 MG CAP PO ONE; -HYDROcodone/APAP 5-325MG 1 EACH TAB PO PRN; -HYDROmorphone 0.5 MG/0.5 ML SYRINGE IVP PRN; -LIDOCAINE 1% (10MG/ML) FOR IV START INTRADERMA PRN; -MAGNESIUM HYDROXIDE 2,400 MG/10 ML CUP PO PRN; -MELOXICAM 7.5 MG TAB PO ONE; -MIDAZOLAM 2 MG/2 ML VIAL IV PRN; -NA PHOS,M-B/NA PHOS,DI-BA 133 ML ENEMA RECTAL PRN; -NALOXONE 0.4 MG/ML 1 ML VIAL IV PRN; +SODIUM CHLORIDE 0.9% 1,000 ML IV SCH; -TRANEXAMIC ACID 1,000 MG in SODIUM CHLORIDE 0.9% 100 ML IVPB ONE; -bisacodyL 10 MG SUPP RECTAL PRN
[2020-12-07 07:23] VITALS: TEMP 97.1
[2020-12-07] MEDS ORDERED: PROPOFOL 10 MG/ML 20 ML VIAL IV ONE (08:11)
[2020-12-07 08:39] VITALS: RESP 16
--- NOTE | 2020-12-07 08:49 | CE ---
CARDIAC ELECTROPHYSIOLOGY REPORT DATE OF SERVICE: 12/07/2020. PROCEDURE: Electrical cardioversion. INDICATION: Persistent atrial fibrillation. Mr. Fine is an 80-year-old gentleman with history of hypertension, hyperlipidemia, and symptomatic atrial fibrillation unresponsive to pharmacological efforts. He was brought in after adequate anticoagulation for electrical cardioversion. PROCEDURE NOTE: Under the influence of ultra short-acting intravenous anesthetic agent with the attendance of the anesthesiologist, the patient received a shock of 250 joules to the chest wall with anterior and posterior patches. He remained in atrial fibrillation. A second shock also was unsuccessful and a third shock was given with 300 joules and patient converted to sinus rhythm momentarily. After 3 sinus beats, he went back into atrial fibrillation. This was therefore an unsuccessful electrical cardioversion. The patient is hemodynamically stable and neurologically intact. He will be discharged with the rate control this evening and I will consider repeating the procedure with amiodarone on board. The details of the procedure were discussed with the patient as well as his . MMHENRIQUE / ELIZABETHN: [id number] /
[2020-12-07 09:40] VITALS: BP 148/91; PULSE 78
== END 2020-12-07 09:49 | disposition home or self-care (01) ==
LOC: CATHCVL 07:05
PROVIDERS: ATTEND Internal Medicine Interventional Cardiology
DX: I48.19 Other persistent atrial fibrillation (principal); I10 Essential (primary) hypertension; E78.5 Hyperlipidemia, unspecified; J44.9 Chronic obstructive pulmonary disease, unspecified; Z87.891 Personal history of nicotine dependence; K21.9 Gastro-esophageal reflux disease without esophagitis; Z79.01 Long term (current) use of anticoagulants; Z82.49 Family history of ischemic heart disease and other diseases of the circulatory system; I08.2 Rheumatic disorders of both aortic and tricuspid valves; I27.20 Pulmonary hypertension, unspecified; Z79.82 Long term (current) use of aspirin; Z79.899 Other long term (current) drug therapy
CPT/HCPCS: 92960; J2704; 93005

== ENCOUNTER → 2020-12-27 | Outpatient (CLI) | payer MEDICARE, BC ==
[2020-12-27 13:24] LABS: HCT 51.8 % (39.0-53.0); HGB 18.2 gm/dL (13.0-17.5); MCHC 35.1 g/dL (31.0-37.0); MCV 96.6 fL (80.0-100.0); Mean Platelet Volume 9.4; Platelet Count 193 k/uL (150-450); RBC 5.36 m/uL (4.30-5.90); RDW 12.4 % (11.5-15.5); WBC 11.6 k/uL (3.8-10.6)
[2020-12-27 13:27] LABS: Calcium 9.6 mg/dL (8.4-10.2); Potassium 4.5 mmol/L (3.5-5.1)
== END | disposition home or self-care (01) ==
LOC: LABPAT 10:22
PROVIDERS: ATTEND Internal Medicine Interventional Cardiology
DX: Z01.818 Encounter for other preprocedural examination (principal); I50.9 Heart failure, unspecified; I48.0 Paroxysmal atrial fibrillation
CPT/HCPCS: 36415; 80048; 85027

== ENCOUNTER 2021-01-13 06:56 | Day surgery (SDC) | payer MEDICARE, BC ==
[2021-01-10 12:20] VITALS: BMI 28.8
[2021-01-13] MEDS ORDERED: PROPOFOL 10 MG/ML 20 ML VIAL IV ONE (07:45)
[2021-01-13 07:59] VITALS: TEMP 98
[2021-01-13 08:16] VITALS: RESP 16
[2021-01-13] MEDS ORDERED: [UNRECOGNIZED DRUG - REMARK] IV ONE (08:23)
[2021-01-13] MEDS ORDERED: SODIUM CHLORIDE 0.9% 500 ML 500 ML IV ONE (08:23)
--- NOTE | 2021-01-13 08:26 | CE ---
CARDIAC ELECTROPHYSIOLOGY REPORT ELECTRICAL CARDIOVERSION REPORT: DATE OF SERVICE: 01/13/2021. PROCEDURE: Electrical cardioversion. INDICATION: Persistent atrial fibrillation. CLINICAL INFORMATION: Mr. Fine is an 80-year-old gentleman with a history of persistent symptomatic atrial fibrillation, who had a previous cardioversion which was unsuccessful. He was, however, started on amiodarone 200 mg b.i.d. for 3 weeks and after optimal anticoagulation, he was brought in for the procedure electively. The risks, benefits, options and success rates were discussed. PROCEDURE NOTE: Under the influence of ultra short-acting intravenous anesthetic agent with the attendance of the anesthesiologist, the patient received a 250 joule shock with anterior and posterior patches. He did not convert to sinus rhythm. He received an additional shock of 300 joules. However, this was also unsuccessful. The patient remained in atrial fib, hemodynamically stable and neurologically intact. This was an unsuccessful electrical cardioversion. Results were discussed with the patient and his . MMALYSSIAL / ELIZABETHN: [id number] /
[2021-01-13 09:45] VITALS: PULSE 64
[2021-01-13 09:46] VITALS: BP 114/63
== END 2021-01-13 09:40 | disposition home or self-care (01) ==
LOC: CATHCVL 06:56
PROVIDERS: ATTEND Internal Medicine Interventional Cardiology
DX: I48.19 Other persistent atrial fibrillation (principal); Z79.01 Long term (current) use of anticoagulants; Z79.899 Other long term (current) drug therapy; R01.1 Cardiac murmur, unspecified; I35.8 Other nonrheumatic aortic valve disorders; I10 Essential (primary) hypertension; E78.5 Hyperlipidemia, unspecified; Z82.49 Family history of ischemic heart disease and other diseases of the circulatory system; Z79.82 Long term (current) use of aspirin
CPT/HCPCS: 92960; 87635; J2704

== ENCOUNTER → 2021-02-14 | Outpatient (CLI) | payer MEDICARE, BC ==
[2021-02-14 14:34] LABS: HCT 41.3 % (39.0-53.0); MCH 34.1 pg (25.0-35.0); MCHC 34.1 g/dL (31.0-37.0); Platelet Count 154 k/uL (150-450); RBC 4.12 m/uL (4.30-5.90); WBC 7.6 k/uL (3.8-10.6)
[2021-02-14 14:49] LABS: HGB 14.1 gm/dL (13.0-17.5)
[2021-02-14 14:54] LABS: Potassium 4.1 mmol/L (3.5-5.1)
== END | disposition home or self-care (01) ==
LOC: LABPAT 13:50
PROVIDERS: ATTEND Internal Medicine Clinical Cardiac Electrophysiology
DX: Z01.812 Encounter for preprocedural laboratory examination (principal); I42.9 Cardiomyopathy, unspecified
CPT/HCPCS: 36415; 80051; 82565; 84520; 85027

== ENCOUNTER 2021-02-28 07:27 | Day surgery (SDC) | payer MEDICARE, BC ==
[2021-02-25 10:12] VITALS: BMI 28.8
[~2021-02-28 07:27] MED LIST changes: +LACTATED RINGERS 1,000 ML IV SCH
[2021-02-28] MEDS ORDERED: HEPARIN SODIUM,PORCINE 10,000 UNIT/ML 1 ML VIAL ONE (08:27)
[2021-02-28] MEDS ORDERED: MIDAZOLAM 2 MG/2 ML VIAL ONE (08:27)
[2021-02-28] MEDS ORDERED: LIDOCAINE 1% INJ 10MG/ML (20 ML MDV) ONE (08:27)
[2021-02-28] MEDS ORDERED: fentaNYL (PF) 50 MCG/ML 2 ML AMP ONE (08:27)
[2021-02-28] MEDS ORDERED: ROCURONIUM 10 MG/ML (5 ML VIAL) IV ONE (08:27)
[2021-02-28] MEDS ORDERED: PROPOFOL 10 MG/ML 20 ML VIAL IV ONE (08:27)
[2021-02-28] MEDS ORDERED: SUCCINYLCHOLINE CHLORIDE 100 MG/5 ML SYR IV ONE (08:27)
[2021-02-28] MEDS ORDERED: HYDROmorphone (PF) 1 MG/ML ONE (08:27)
[2021-02-28] MEDS ORDERED: PROTAMINE SULFATE 10 MG/ML 5 ML VIAL IV ONE (08:27)
--- NOTE | 2021-02-28 08:41 | P.HPCAR ---
History of Present Illness This is Dr. Christina dictating an H/P on this patient The patient was interviewed and examined IMPRESSION / ASSESSMENT: Persistent symptomatic atrial fibrillation with shortness of breath on exertion Failed amiodarone therapy Reduced LV systolic function ejection fraction 45% Mildly enlarged left atrium PLAN: AF ablation with pulmonary vein isolation and linear ablation in the left atrium Continue Xarelto HPI For about a year the patient finds that he gets more short of breath than usual. He notices it when he cuts the grass. He has had to stop very frequently to get his breath back He denies any palpitations lightheadedness or syncope No chest discomfort Today he denies any chest discomfort no undue shortness of breath except when he walks. No dizziness no lightheadedness no chest discomfort No lower extremity edema He took Xarelto last evening ROS: No fever chills or rigors, no cough, phlegm or expectoration, no nausea, vomiting or diarrhea, no hematuria, dysuria, no musculoskeletal complaints, no strokes or seizures, no skin lesions. EXAMINATION: Afebrile 97.9F, pulse rate in the 80s, respirations 16 Blood pressure 146/86. His mercury pulse ox 96% on room air No JVD, no hepatojugular reflux Soft abdomen nontender Breath sounds are clear no rhonchi no crackles Normal heart sounds irregular no murmurs no gallops or rubs No lower extremity edema Skin is warm Patient is resting comfortably in bed REVIEW OF LABS, ECG & MEDICAL DATA Negative for coronavirus History of sinus bradycardia I twelve-lead EKG in 2019 Physical Exam Vitals: Vital Signs Temp Pulse Resp BP Pulse Ox 02/28/21 07:53 97.9 F 84 16 146/86 96 Intake and Output 02/27/21 02/28/21 02/28/21 22:59 06:59 14:59 Intake Total 50 Balance 50 Intake: IV 50 Other: Weight 98.2 kg Past Medical History Past Medical History: Cancer, GERD/Reflux, Hyperlipidemia, Osteoarthritis (OA) Additional Past Medical History / Comment(s): Hx right ureter, bladder and skin cancer. Hx right hydronephrosis. States no HTN-takes rx for thickened wall of heart. Enlarged Prostate. History of Any Multi-Drug Resistant Organisms: None Reported Past Surgical History: Back Surgery, Bladder Surgery, Joint Replacement, Tonsillectomy Additional Past Surgical History / Comment(s): Distal right ureterectomy with ureteral reimplant, right ureteroscopy with biopsy and vaporization, removal of skin cancer from right shoulder/right bicep, colonoscopies with polypectomy, total right hip replacement. Past Anesthesia/Blood Transfusion Reactions: No Reported Reaction Past Psychological History: No Psychological Hx Reported Smoking Status: Former smoker Past Alcohol Use History: Rare Additional Past Alcohol Use History / Comment(s): QUIT smoking in 1999- WAS UP TO 2 PPD WHEN HE QUIT, smoked 45-50 yrs. Past Drug Use History: None Reported - Past Family History Mother Family Medical History: COPD Additional Family Medical History / Comment(s): Mother at age 77 from Emphysema. Father Family Medical History: Cancer Additional Family Medical History / Comment(s): Father of complications with his prostate cancer at the age of 65 yrs. Physical Examination Vital Signs Temp Pulse Resp BP Pulse Ox 02/28/21 07:53 97.9 F 84 16 146/86 96 Intake and Output 02/27/21 02/28/21 02/28/21 22:59 06:59 14:59 Intake Total 50 Balance 50 Intake: IV 50 Other: Weight 98.2 kg Results Current Medications Generic Name Dose Route Start Last Admin Trade Name Freq PRN Reason Stop Dose Admin Lactated Ringer's 1,000 mls @ 20 mls/hr 02/28/21 06:09 Lactated Ringers IV 03/30/21 06:10 .Q24H VY Sodium Chloride 1,000 mls @ 50 mls/hr 02/28/21 06:09 02/28/21 07:50 Saline 0.9% IV 03/30/21 06:10 50 mls .Q20H VY Administration Intake and Output 02/27/21 02/28/21 02/28/21 22:59 06:59 14:59 Intake Total 50 Balance 50 Intake: IV 50 Other: Weight 98.2 kg Patient Weight 03/01/21 06:59 Weight 98.2 kg
[2021-02-28] MEDS ORDERED: HEPARIN SOD,PORK IN 0.45% NACL 25,000 UNIT in 0.45% NACL 1 250ML.BAG IV ONE (09:05)
[2021-02-28] MEDS ORDERED: LIDOCAINE 1% INJ 10MG/ML (20 ML MDV) SQ ONE (09:06)
[2021-02-28] MEDS ORDERED: HEPARIN SODIUM (1,000 UNIT/ML) 1,000 UNIT in SODIUM CHLORIDE 0.9% 1,000 ML IRRIGATION ONE (10:00)
[2021-02-28] MEDS ORDERED: ACETAMINOPHEN TAB 325 MG TAB PO PRN (12:10)
[2021-02-28] MEDS ORDERED: HYDROcodone/APAP 5-325MG 1 EACH TAB PO PRN (12:10)
--- NOTE | 2021-02-28 12:19 | P.EPPROC ---
- EP Procedure Note Electrophysiology Procedure Note: PROCEDURE A. fib ablation, pulmonary vein isolation and linear ablation in the left atrium DIAGNOSIS Atrial fibrillation, symptomatic, refractory to therapy Persistent RESULT No left atrial appendage mass seen on intracardiac echo Successful A. fib ablation/pulmonary vein isolation of all veins using cryo- ablation Complete entrance block in all 4 veins confirmed No evidence for phrenic nerve injury Atrial fibrillation ablation in the left atrial septum Esophageal deflection YES Mild organization of atrial fibrillation with linear ablation. Occasionally an eccentric activation pattern noted in the coronary sinus Electrical cardioversion with a synchronized shock across the chest YES PROCEDURE DETAILS Patient was brought to the EP lab in a fasting state. Written informed consent was obtained prior to the procedure. Procedure performed under general anesthesia After initial muscle relaxant use, muscle relaxants were not given thereafter in order to assess phrenic nerve during procedure. Patient prepped and draped as per protocol Full cryo-set up with standard preparation of the cryoablation tools done. Femoral Venous access obtained on the right and left groins Venous and arterial Sheaths placed. Diagnostic catheters for the high right atrium, phrenic nerve stimulation and pacing, His bundle, RV and coronary sinus placed Intracardiac echo catheter placed. Long sheath placed in the right atrium Left and right transseptal catheterization performed under intracardiac echo guidance. Intravenous heparin with aCT above 300 Later, catheter positioning and balloon positioning in the left atrium, under intracardiac echo guidance Diagnostic EP study with Coronary sinus pacing and recording Sinus node recovery times at 600 ms was 1441 ms. The corrected sinus node recovery time suggested entrance block into the sinus node AV node Wenckebach block 590-600 ms Baseline measurements AH 101 ms, HV 50 ms Sinus cycle length 1300, TN interval 270 ms, QRS 105 ms and QT 425 ms Atrial pacing performed from the high right atrium and the coronary sinus RV pacing Transseptal catheterization performed RA pressure 15/9/11 LA pressure 20/5/11 Transseptal catheterization performed with standard sheath. The cryoablation sheath was then placed with an over the wire exchange without any acute complications. All 4 pulmonary veins were isolated in the following sequence: Left superior followed by left inferior followed by right superior followed by right inferior The cryo-ablation balloon was placed at the os of each vein 1.5 mL of IV dye was injected to confirm an occluded vein Goal during cryoablation was to achieve complete occlusion of the pulmonary vei n, achieve -30 degrees C at 30 seconds and achieve -40 degrees C at 60 seconds and a time to effect of less than 60-90 seconds, . If not the balloon was repositioned to obtain this result After completion of Cryoblation with durations from 180-240 seconds, entrance block was confirmed with the Attain circular catheter in a roving fashion around the antrum of the pulmonary veins Phrenic nerve pacing was performed from the SVC, right innominate vein area and diaphragm voltage was monitored. Diaphragmatic contractions were also monitored manually for strength of contraction. Parameter goals for each cryo freeze Complete occlusion of the appropriate vein -30 degrees C by 30 seconds -40 degrees C by 60 seconds Minimum between minus 40-55 degrees C Thaw time greater than 10 seconds Balloon visualized by intracardiac echo The esophagus was intubated. Esophageal Temperature monitoring with a CIRCA catheter formed. Esophageal deflection for hypothermia of the esophagus below 30 degrees C Left superior pulmonary vein Complete isolation, entrance block Left inferior pulmonary vein Complete isolation, entrance block Right superior pulmonary vein, during phrenic nerve pacing Complete isolation, entrance block Right inferior pulmonary vein, during phrenic nerve pacing Complete isolation, entrance block At the end of the procedure the Achieve catheter was once again used to check for entrance block Phrenic nerve stimulation was performed to confirm diaphragmatic stimulation the end of the procedure Cine fluoroscopy was performed at the very end of the procedure to confirm mov ement of both diaphragms with inspiration and expiration The cryo catheter was removed and exchanged for an RF ablation With the Appropriate Sheaths 3-D Electro-Anatomic Mapping of the Left Atrium Was Performed Voltage Mapping Revealed the Pulmonary Veins Were Completely Isolated The roof was approximately 2.9 cm between the right and left superior veins The mitral isthmus was about 3.3 cm from the left inferior vein to the mitral ring Fractionated electrograms are noted along the septum While the right superior inferior veins were completely isolated a large segment of the anterior enma and septum was in atrial fibrillation An RF line of block was made from the right superior to the right inferior veins anteriorly to isolate a large segment of the anterior enma and the septum behind the transseptal puncture This resulted in some organization of atrial fibrillation and intermittently an eccentric activation pattern was noted in the coronary sinus Electrical cardioversion was performed High output pacing from the septum revealed complete exit block and complete isolation of the segment At the end of the procedure the patient was extubated Heparin was reversed Venous sheaths were removed and hemostasis assured PROCEDURES PERFORMED Diagnostic EP study CS pacing and recording Left and right transseptal catheterization 3D mapping of the left atrium Intracardiac echocardiography Pulmonary vein isolation with transseptal and comprehensive EPS, [id number] Linear ablation, left atrium, [id number] Electrical cardioversion with a synchronized shock across the chest [id number]
--- NOTE | 2021-02-28 12:21 | P.PRLE ---
RE: Johnny Fine Dear Dr. Duval Patient underwent successful pulmonary vein isolation and linear ablation in the left atrium or management of drug refractory persistent atrial fibrillation He has an abnormal sinus node and AV node and therefore I am reducing the dose of amiodarone 2 100 mg by mouth daily and reducing the dose of Toprol to 25 mg by mouth daily, succinate He will continue to follow with you and with Dr. Jefferson as before Thank you for entrusting me with the care of the patient Warm regards Sincerely Filippo Christina
[2021-02-28] MEDS ORDERED: FUROSEMIDE 10 MG/ML 4 ML VIAL IV STA (12:46)
[2021-02-28] MEDS ORDERED: ACETAMINOPHEN IV (For NPO) 1,000 MG in EMPTY BAG 1 BAG IVPB ONE (13:00)
[2021-02-28] MEDS ORDERED: RIVAROXABAN 20 MG TAB PO SCH (18:00)
[2021-02-28] MEDS ORDERED: TAMSULOSIN 0.4 MG CAP.ER.24H PO SCH (21:00)
[2021-02-28] MEDS ORDERED: ATORVASTATIN 20 MG TAB PO SCH (21:00)
[2021-03-01 07:22] VITALS: BP 109/54; PULSE 79; RESP 16; TEMP 98.6
[2021-03-01] MEDS ORDERED: ASPIRIN 81 MG PO SCH (09:00)
--- NOTE | 2021-03-01 13:36 | P.DS ---
Providers Attending physician: Filippo Christina Primary care physician: Enrico Lester MD Hospital Course: Patient is doing well. No chest discomfort no dizziness lightheadedness or palpitations He minimal oozing of the groin this morning Anderson cough with a tinge of blood in the expectorate On examination vitals are stable Afebrile 98.6F, pulse rate in the 70s Blood pressure 109/54 mmHg Groins are actually healed well is minimal oozing no hematoma minimal tenderness Heart sounds S1 and S2 are normal Breath sounds are clear No JVD Twelve-lead EKG today shows sinus rhythm normal LA right bundle branch block pattern normal ST segments Impression Persistent atrial fibrillation status post cryoablation of the pulmonary veins and linear ablation was septum along fractionated electrograms Underlying right bundle branch block pattern Plan Reduce metoprolol to 25 MG twice a day Take 100 mg of amiodarone for 3 months and then stop Follow Dr. Jefferson postdischarge Plan - Discharge Summary Discharge Rx Participant: No New Discharge Prescriptions: New Metoprolol Tartrate 25 mg PO BID #180 tab Amiodarone [Cordarone] 100 mg PO DAILY #50 tab Discontinued Metoprolol Tartrate [Lopressor] 25 mg PO TID Amiodarone [Cordarone] 200 mg PO BID No Action Aspirin 81 mg PO DAILY Acetaminophen Tab [Tylenol] 1,000 mg PO TID Rivaroxaban [Xarelto] 20 mg PO HS Tamsulosin [Flomax] 0.4 mg PO HS Atorvastatin [Lipitor] 20 mg PO HS Discharge Medication List Aspirin 81 mg PO DAILY 10/16/14 [History] Acetaminophen Tab [Tylenol] 1,000 mg PO TID 11/18/19 [History] Rivaroxaban [Xarelto] 20 mg PO HS 02/04/20 [History] Tamsulosin [Flomax] 0.4 mg PO HS 12/03/20 [History] Atorvastatin [Lipitor] 20 mg PO HS 01/10/21 [History] Amiodarone [Cordarone] 100 mg PO DAILY #50 tab 02/28/21 [Rx] Metoprolol Tartrate 25 mg PO BID #180 tab 03/01/21 [Rx] Follow up Appointment(s)/Referral(s): Praveena Jefferson MD [STAFF PHYSICIAN] - 1 Week (Follow-up with Dr. Jefferson within 1-2 weeks postdischarge Continue Xarelto Reduce metoprolol to 25 g twice daily, take amiodarone 100 mg by mouth daily for 3 months then stop Follow-up with Dr. cooney as previously scheduled Discharge home by 3 PM if hemodynamic the stable and of groin is okay) Activity/Diet/Wound Care/Special Instructions: Post EP study - Ablation instructions 1. Keep access sites dry for 2 days. 2. No heavy lifting or straining for 2 days. 3. Avoid bending the hips repeatedly for 2 days. 4. You may go up and down stairs slowly Call if the following is noted 1. Bleeding, increasing swelling or pain at the access sites. 2. Increasing chest discomfort, especially upon taking a deep breath. 3. Increasing shortness of breath, at rest or with exertion. 4. Undue cough / phlegm 5. Difficulty or pain while swallowing. 6. Pain or change in color in the extremities. 7. Fever, chills, rigors. 8. Increasing headache or neurologic symptoms. 9. Dizziness, fainting, palpitations Follow-up with Dr. Jefferson in 1-2 weeks Reduce metoprolol tartrate to 25 mg twice daily Take amiodarone to 100 mg by mouth daily for 3 months only then stop Continue Xarelto and other cardiac medications Discharge Disposition: HOME SELF-CARE
== END 2021-03-01 15:20 | disposition home or self-care (01) ==
LOC: CATHEP 07:27 → 6NMEDSUR 12:35 → CATHEP 03-01 15:20
PROVIDERS: ATTEND Internal Medicine Clinical Cardiac Electrophysiology
DX: I48.19 Other persistent atrial fibrillation (principal); Z79.01 Long term (current) use of anticoagulants; I42.9 Cardiomyopathy, unspecified; E78.5 Hyperlipidemia, unspecified; I10 Essential (primary) hypertension; Z82.49 Family history of ischemic heart disease and other diseases of the circulatory system; Z20.822 Contact with and (suspected) exposure to COVID-19; Z87.891 Personal history of nicotine dependence; I45.10 Unspecified right bundle-branch block; M19.90 Unspecified osteoarthritis, unspecified site; K21.9 Gastro-esophageal reflux disease without esophagitis; N40.0 Benign prostatic hyperplasia without lower urinary tract symptoms; Z96.641 Presence of right artificial hip joint; Z85.828 Personal history of other malignant neoplasm of skin; Z79.82 Long term (current) use of aspirin; Z79.899 Other long term (current) drug therapy
CPT/HCPCS: 92960; 93662; 93613; 93656; 93657; 87635; C1769 ×5; C1894 ×2; C1730; C1759; C1733; C1766; C1732; J2250; J2720; J1644 ×3; J1940; J2001; J3010; J1170; J0131; J0330; J2704

== ENCOUNTER → 2021-05-10 | Outpatient (CLI) | payer MEDICARE, BC ==
--- NOTE | 2021-05-10 13:59 | CT ---
EXAMINATION TYPE: CT chest wo con DATE OF EXAM: 05/10/2021 COMPARISON: 10/15/2019 HISTORY: Thoracic spine pain, chest pain CT DLP: [address] of the chest was performed with lung and mediastinal window settings submitted. The la ck of contrast limits evaluation of the vascular, mediastinal and parenchymal structures including th e upper abdomen. LUNGS: The lungs are clear and free of infiltrate. No atelectasis. Chronic postinflammatory change l ower lobes bilaterally. No pulmonary nodule or mass is detected. No pleural effusion. No CT evidenc e of interstitial lung disease. MEDIASTINUM/BERE: Small fixed hiatal hernia. Thoracic aorta is of normal caliber with limited evalua tion given lack of contrast. The heart is not enlarged. No evidence for mediastinal mass. No lymp h nodes greater than 1cm. UPPER ABDOMEN: No significant abnormality is seen. OTHER: No significant other abnormality. IMPRESSION: 1. No significant abnormality to account for the patient's symptoms.
== END | disposition home or self-care (01) ==
LOC: RADCTMAIN 12:52
PROVIDERS: ATTEND Family Medicine
DX: R07.9 Chest pain, unspecified (principal); M54.6 Pain in thoracic spine
CPT/HCPCS: 71250

== ENCOUNTER 2021-05-30 10:21 | Observation (INO) | payer MEDICARE, BC ==
[2021-05-30] MEDS ORDERED: SODIUM CHLORIDE 0.9% 500 ML 500 ML IV STA (11:47)
--- NOTE | 2021-05-30 12:22 | ED ---
Fall HPI - General Chief Complaint: Fall Stated Complaint: Fall-Dizziness Time Seen by Provider: 05/30/21 11:40 Source: patient Mode of arrival: wheelchair - History of Present Illness Initial Comments: Patient is an 81-year-old male with history of A. fib, on Xarelto, presenting to the emergency department after he fell today. Patient states when he woke up and looked over and has a long clot this morning, he felt dizzy. The patient then got up to use the restroom, he was able to without difficulty, he went to lower the seat back down and then felt dizziness again, he went to try to sit on the edge of the tub ended up falling. He fell into the tub on his left upper ar m. He did not hit his head or his neck. He states he was able to get up afterwards and went back out to the living room. They recommended coming into the ER for evaluation. - Related Data Home Medications Medication Instructions Recorded Confirmed Acetaminophen Tab [Tylenol] 1,000 mg PO TID 11/18/19 05/30/21 Tamsulosin [Flomax] 0.4 mg PO DAILY 12/03/20 05/30/21 Atorvastatin [Lipitor] 20 mg PO HS 01/10/21 05/30/21 Amiodarone [Cordarone] 100 mg PO HS 05/30/21 05/30/21 Metoprolol Succinate (ER) [Toprol 50 mg PO BID 05/30/21 05/30/21 Xl] Rivaroxaban [Xarelto] 20 mg PO HS 05/30/21 05/30/21 Allergies Allergy/AdvReac Type Severity Reaction Status Date / Time No Known Allergies Allergy Verified 05/30/21 12:03 Review of Systems ROS Statement: Those systems with pertinent positive or pertinent negative responses have been documented in the HPI. ROS Other: All systems not noted in ROS Statement are negative. Past Medical History Past Medical History: Atrial Fibrillation Additional Past Medical History / Comment(s): Cancer R ureter, R hydronephrosis,bladder ca, skin cancer , States no HTN-takes rx for thickened wall of herart., enlarged prostate. History of Any Multi-Drug Resistant Organisms: None Reported Past Surgical History: Back Surgery, Joint Replacement, Tonsillectomy Additional Past Surgical History / Comment(s): 03/01/16 Distal R ureterectomy with ureteral reimplant., 01/2016 R ureteroscopy with bx and vaporization, removal of skin cancer from rt shoulder/R bicep, colonoscopies with polypectomy, Total Right Hip Past Anesthesia/Blood Transfusion Reactions: No Reported Reaction Past Psychological History: No Psychological Hx Reported Smoking Status: Former smoker - Past Family History Mother Family Medical History: COPD Additional Family Medical History / Comment(s): Mother at age 77 from Emphysema. Father Family Medical History: Cancer Additional Family Medical History / Comment(s): Father of complications with his prostate cancer at the age of 65 yrs. General Exam Limitations: no limitations Course Vital Signs 05/30/21 05/30/21 05/30/21 10:41 11:46 12:00 Temperature 97.4 F L Pulse Rate 50 L 46 L 48 L Respiratory 18 18 18 Rate Blood Pressure 153/76 127/96 O2 Sat by Pulse 97 96 97 Oximetry 05/30/21 05/30/21 05/30/21 14:00 14:01 14:02 Temperature Pulse Rate 50 L 53 L 57 L Respiratory 18 18 18 Rate Blood Pressure 109/66 117/68 123/73 O2 Sat by Pulse 99 98 Oximetry Medical Decision Making - Medical Decision Making Patient is an 81-year-old male with history of A. fib, had ablation in January, is on Xarlto, stenting after having a fall in the bathroom today. He has been dizzy a few times this morning. He does have history of vertigo but states this feels different. His vital signs upon arrival were stable. His EKG showed sinus bradycardia at 42 ventricular rate. Labs are unremarkable including a normal troponin. Chest x-ray and x-ray left humerus where he fell are also within normal limits. Orthostatics were measured and are within normal limits. Patient was dizzy upon standing during the chest x-ray. He says heart rate during stay has been in the low 40s anywhere from 40-48. Given patient's symptomatic bradycardia, did recommend admission for cardiac consult. Patient is agreeable to this. Patient was accepted by Dr. Russ. Case discussed with Dr. Clark. - Lab Data Result diagrams: 05/30/21 12:20 05/30/21 12:20 Lab Results 05/30/21 05/30/21 05/30/21 Range/Units 12:20 12:20 12:20 WBC 9.3 (3.8-10.6) k/uL RBC 4.48 (4.30-5.90) m/uL Hgb 15.3 (13.0-17.5) gm/dL Hct 44.8 (39.0-53.0) % MCV 100.1 H (80.0-100.0) fL MCH 34.2 (25.0-35.0) pg MCHC 34.2 (31.0-37.0) g/dL RDW 12.3 (11.5-15.5) % Plt Count 151 (150-450) k/uL MPV 9.3 Neutrophils % 78 % Lymphocytes % 13 % Monocytes % 5 % Eosinophils % 2 % Basophils % 0 % Neutrophils # 7.2 (1.3-7.7) k/uL Lymphocytes # 1.2 (1.0-4.8) k/uL Monocytes # 0.5 (0-1.0) k/uL Eosinophils # 0.2 (0-0.7) k/uL Basophils # 0.0 (0-0.2) k/uL PT 12.7 H (9.0-12.0) sec INR 1.2 H (<1.2) Sodium 141 (137-145) mmol/L Potassium 4.3 (3.5-5.1) mmol/L Chloride 111 H (98-107) mmol/L Carbon Dioxide 25 (22-30) mmol/L Anion Gap 5 mmol/L BUN 14 (9-20) mg/dL Creatinine 0.83 (0.66-1.25) mg/dL Est GFR (CKD-EPI)AfAm >90 (>60 ml/min/1.73 sqM) Est GFR (CKD-EPI)NonAf 81 (>60 ml/min/1.73 sqM) Glucose 99 (74-99) mg/dL Calcium 9.2 (8.4-10.2) mg/dL Total Bilirubin 0.7 (0.2-1.3) mg/dL AST 26 (17-59) U/L ALT 33 (4-49) U/L Alkaline Phosphatase 98 (38-126) U/L Troponin I (0.000-0.034) ng/mL Total Protein 6.1 L (6.3-8.2) g/dL Albumin 4.0 (3.5-5.0) g/dL Urine Color Urine Appearance (Clear) Urine pH (5.0-8.0) Ur Specific [place] (1.001-1.035) Urine Protein (Negative) Urine Glucose (UA) (Negative) Urine Ketones (Negative) Urine Blood (Negative) Urine Nitrite (Negative) Urine Bilirubin (Negative) Urine Urobilinogen (<2.0) mg/dL Ur Leukocyte Esterase (Negative) 05/30/21 05/30/21 Range/Units 12:20 12:30 WBC (3.8-10.6) k/uL RBC (4.30-5.90) m/uL Hgb (13.0-17.5) gm/dL Hct (39.0-53.0) % MCV (80.0-100.0) fL MCH (25.0-35.0) pg MCHC (31.0-37.0) g/dL RDW (11.5-15.5) % Plt Count (150-450) k/uL MPV Neutrophils % % Lymphocytes % % Monocytes % % Eosinophils % % Basophils % % Neutrophils # (1.3-7.7) k/uL Lymphocytes # (1.0-4.8) k/uL Monocytes # (0-1.0) k/uL Eosinophils # (0-0.7) k/uL Basophils # (0-0.2) k/uL PT (9.0-12.0) sec INR (<1.2) Sodium (137-145) mmol/L Potassium (3.5-5.1) mmol/L Chloride (98-107) mmol/L Carbon Dioxide (22-30) mmol/L Anion Gap mmol/L BUN (9-20) mg/dL Creatinine (0.66-1.25) mg/dL Est GFR (CKD-EPI)AfAm (>60 ml/min/1.73 sqM) Est GFR (CKD-EPI)NonAf (>60 ml/min/1.73 sqM) Glucose (74-99) mg/dL Calcium (8.4-10.2) mg/dL Total Bilirubin (0.2-1.3) mg/dL AST (17-59) U/L ALT (4-49) U/L Alkaline Phosphatase (38-126) U/L Troponin I <0.012 (0.000-0.034) ng/mL Total Protein (6.3-8.2) g/dL Albumin (3.5-5.0) g/dL Urine Color Light Yellow Urine Appearance Clear (Clear) Urine pH 5.5 (5.0-8.0) Ur Specific [place] 1.011 (1.001-1.035) Urine Protein Negative (Negative) Urine Glucose (UA) Negative (Negative) Urine Ketones Negative (Negative) Urine Blood Negative (Negative) Urine Nitrite Negative (Negative) Urine Bilirubin Negative (Negative) Urine Urobilinogen <2.0 (<2.0) mg/dL Ur Leukocyte Esterase Negative (Negative) - EKG Data EKG Comments: Marked sinus bradycardia with premature atrial complexes, no signs of acute ST segment elevation. This is a change from his previous EKG on 03/01/2021. Ventricular rate 43, IN interval 182, QTC 480. Disposition Clinical Impression: Fall, Bradycardia, Dizziness Disposition: ADMITTED IP TO THIS HOSP Condition: Stable Referrals: Enrico Lester MD [Primary Care Provider] - 1-2 days Decision Date: 05/30/21 Decision Time: 14:46
[2021-05-30 12:41] LABS: ALT 33 U/L (4-49); AST 26 U/L (17-59); African American GFR (CKD) >90 (>60 ml/min/1.73 sqM); Alkaline Phosphatase 98 U/L (38-126); Anion Gap 5 mmol/L; Basophils % (A) 0 %; Blood Urea Nitrogen 14 mg/dL (9-20); Calcium 9.2 mg/dL (8.4-10.2); Carbon Dioxide 25 mmol/L (22-30); Chloride 111 mmol/L (98-107); Eosinophils # (A) 0.2 k/uL (0-0.7); Eosinophils % (A) 2 %; Glucose 99 mg/dL (74-99); HCT 44.8 % (39.0-53.0); HGB 15.3 gm/dL (13.0-17.5); Lymphocytes # (A) 1.2 k/uL (1.0-4.8); Lymphocytes % (A) 13 %; MCH 34.2 pg (25.0-35.0); MCHC 34.2 g/dL (31.0-37.0); MCV 100.1 fL (80.0-100.0); Mean Platelet Volume 9.3; Monocytes # (A) 0.5 k/uL (0-1.0); Monocytes % (A) 5 %; Neutrophils # (A) 7.2 k/uL (1.3-7.7); Neutrophils % (A) 78 %; Non-African American GFR(CKD) 81 (>60 ml/min/1.73 sqM); Platelet Count 151 k/uL (150-450); Potassium 4.3 mmol/L (3.5-5.1); RBC 4.48 m/uL (4.30-5.90); RDW 12.3 % (11.5-15.5); Sodium 141 mmol/L (137-145); Total Bilirubin 0.7 mg/dL (0.2-1.3); Total Protein 6.1 g/dL (6.3-8.2); WBC 9.3 k/uL (3.8-10.6)
[2021-05-30 12:42] LABS: INR 1.2 (<1.2); Prothrombin Time 12.7 sec (9.0-12.0)
[2021-05-30 12:48] LABS: Appearance,Urine Clear (Clear); Bilirubin,Urine Negative (Negative); Blood,Urine Negative (Negative); Color,Urine Light Yellow; Glucose,Urine (UA) Negative (Negative); Ketones,Urine Negative (Negative); Leukocyte Esterase,Urine Negative (Negative); Nitrite,Urine Negative (Negative); PH, Urine 5.5 (5.0-8.0); Protein,Urine Negative (Negative); Specific Gravity,Urine 1.011 (1.001-1.035); Urobilinogen,Urine <2.0 mg/dL (<2.0)
--- NOTE | 2021-05-30 13:26 | XR ---
EXAMINATION TYPE: XR chest 2V DATE OF EXAM: 05/30/2021 COMPARISON: 01/28/2016 HISTORY: Shortness of breath TECHNIQUE: Frontal and lateral views of the chest are obtained. FINDINGS: Scattered senescent parenchymal changes noted. Hyperinflation compatible with COPD. No evidence for infiltrate. No evidence for atelectasis. Heart size is stable. Mediastinal structures are stable and grossly unremarkable. No evidence for hilar prominence. Degenerative changes dorsal spine. IMPRESSION: 1. No evidence for acute pulmonary disease.
--- NOTE | 2021-05-30 13:27 | XR ---
EXAMINATION TYPE: XR humerus LT DATE OF EXAM: 05/30/2021 CLINICAL HISTORY: pain TECHNIQUE: Frontal and lateral images of the left humerus are obtained. COMPARISON: None. FINDINGS: There is no acute fracture/dislocation evident. The joint spaces appear within normal limi ts. The overlying soft tissue appears unremarkable. IMPRESSION: There is no acute fracture or dislocation. ICD 10 NO FRACTURE, INITIAL EVALUATION
[2021-05-30] MEDS ORDERED: NALOXONE 0.4 MG/ML 1 ML VIAL IV PRN (14:42)
[2021-05-30] MEDS ORDERED: ACETAMINOPHEN TAB 325 MG TAB PO PRN (14:44)
--- NOTE | 2021-05-30 15:34 | P.HPIM ---
History of Present Illness H&P Date: 05/30/21 Chief Complaint: dizziness Patient is an 81-year-old male past medical history of A. fib with ablation in February 2021, GERD, and prior ureter cancer who presented to the ER with complaints of dizziness. In the ER he underwent an extensive evaluation. Initial vital signs were within normal limits. Her underwent orthostatic vital signs which were negative. X-ray of the humerus showed no acute fracture or dislocation. Chest x-ray showed no acute process. Woke up this morning and turned out of bed and got dizzy which went away. Arose later from a chair at rest wnet to the bathroom and got dizzy and fell into the bathroom. Injurying his left elbow. Again got dizzy whne standing for x-rays here worse with looking head down. + slight headache all over this morning. He had nausea when this started this moring. Didin't feel like was going to pass out, + room spinning, No scotomas, No chest pain no shrotness of breath. Had vertigo 3 times. Had A fib ablation February 2021. Since then resting HR has been 55 on his home blood pressure cuff. Has come off lasix recently. Pertinent positives and negatives as discussed in HPI, a complete review of systems was performed and all other systems are negative. General: non toxic, no distress, appears at stated age Derm: warm, dry Head: atraumatic, normocephalic, symmetric Eyes: EOMI, no lid lag, anicteric sclera, pupils equal round reactive to light ENT: Nose and ears atraumatic, no thrush, no pharyngeal erythema Neck: No thyromegaly, no cervical lymphadenopathy, trachea midline, supple Mouth: no lip lesion, mucus membranes moist Cardiovascular: S1S2 reg, no murmur, positive posterior tibial pulse bilateral, no edema, capillary refill less than 2 seconds Lungs: clear to ascultation bilateral, no ronchi, no rales, no wheeze, no accessory muscle use Abdominal: soft, nontender to palpation, no guarding, no appreciable organomegaly, normal bowel sounds Ext: no gross muscle atrophy, muscle strength muscle strength 5 out of 5 in all 4 extremities, no contractures Neuro: CN II-XI grossly intact, light touch intact all 4 extremities, finger to nose within normal limits, negative Francisco-Hallpike Psych: Alert, oriented, appropriate affect Dizziness -Telemetry -Have patient walk with telemetry and check chronotropic competency -Consult cardiology -Patient reports he states he had a recent echocardiogram, we'll attempt to obtain records from office -PT/OT evaluation - negative orthostatics History of A. fib status post ablation Chronic: Bladder cancer status post treatment, ureter cancer status post treatment Enlarged prostate Skin cancer The patient is placed in observation with an anticipated less than 2 midnight stay for evaluation of dizziness . Surrogate decision-maker: CODE STATUS: full DVT prophylaxis: SCDs Discussed with: Patient, nursing, ED provider Anticipated discharge date: in AM Anticipated discharge place: home A total of 35 minutes was spent on the care of this complex patient more than 50% of the time was spent in counseling and care coordination. Past Medical History Past Medical History: Atrial Fibrillation Additional Past Medical History / Comment(s): Cancer R ureter, R hydronephrosis,bladder ca, skin cancer , States no HTN-takes rx for thickened wall of herart., enlarged prostate. GERD, History of Any Multi-Drug Resistant Organisms: None Reported Past Surgical History: Back Surgery, Joint Replacement, Tonsillectomy Additional Past Surgical History / Comment(s): 03/01/16 Distal R ureterectomy with ureteral reimplant., 01/2016 R ureteroscopy with bx and vaporization, removal of skin cancer from rt shoulder/R bicep, colonoscopies with polypectomy, Total Right Hip, Cataracts, Left TKA Past Anesthesia/Blood Transfusion Reactions: No Reported Reaction Past Psychological History: No Psychological Hx Reported Smoking Status: Former smoker - Past Family History Mother Family Medical History: COPD Additional Family Medical History / Comment(s): Mother at age 77 from Emphysema. Father Family Medical History: Cancer Additional Family Medical History / Comment(s): Father of complications with his prostate cancer at the age of 65 yrs. Medications and Allergies Home Medications Medication Instructions Recorded Confirmed Type Acetaminophen Tab [Tylenol] 1,000 mg PO TID 11/18/19 05/30/21 History Tamsulosin [Flomax] 0.4 mg PO DAILY 12/03/20 05/30/21 History Atorvastatin [Lipitor] 20 mg PO HS 01/10/21 05/30/21 History Amiodarone [Cordarone] 100 mg PO HS 05/30/21 05/30/21 History Metoprolol Succinate (ER) [Toprol 50 mg PO BID 05/30/21 05/30/21 History Xl] Rivaroxaban [Xarelto] 20 mg PO HS 05/30/21 05/30/21 History Allergies Allergy/AdvReac Type Severity Reaction Status Date / Time No Known Allergies Allergy Verified 05/30/21 12:03 Physical Exam Osteopathic Statement: *. No significant issues noted on an osteopathic structural exam other than those noted in the History and Physical/Consult. Vitals: Vital Signs Temp Pulse Resp BP Pulse Ox 05/30/21 14:02 57 L 18 123/73 05/30/21 14:01 53 L 18 117/68 98 05/30/21 14:00 50 L 18 109/66 99 05/30/21 12:00 48 L 18 97 05/30/21 11:46 46 L 18 127/96 96 05/30/21 10:41 97.4 F L 50 L 18 153/76 97 Intake and Output 05/30/21 05/30/21 05/30/21 06:59 14:59 22:59 Other: Weight 98.883 kg Results CBC & Chem 7: 05/30/21 12:20 05/30/21 12:20 Labs: Abnormal Lab Results - Last 24 Hours (Table) 05/30/21 05/30/21 05/30/21 Range/Units 12:20 12:20 12:20 MCV 100.1 H (80.0-100.0) fL PT 12.7 H (9.0-12.0) sec INR 1.2 H (<1.2) Chloride 111 H (98-107) mmol/L Total Protein 6.1 L (6.3-8.2) g/dL
[2021-05-30] MEDS: ACETAMINOPHEN TAB 500 MG TAB PO SCH ×2 (18:52→22:42)
[2021-05-30] MEDS: ATORVASTATIN 20 MG TAB PO SCH (22:41)
[2021-05-30] MEDS: RIVAROXABAN 20 MG TAB PO SCH (22:41)
[2021-05-31] MEDS: TAMSULOSIN 0.4 MG CAP.ER.24H PO SCH (09:08)
[2021-05-31] MEDS: ACETAMINOPHEN TAB 500 MG TAB PO SCH (09:08)
--- NOTE | 2021-05-31 09:20 | P.CRDCN ---
History of Present Illness History of present illness: HISTORY OF PRESENTING ILLNESS This is a pleasant 81-year-old male past medical history significant for persistent atrial fibrillation status post cryoablation February 2021, hypertension, hyperlipidemia former smoker, history non-ischemic cardiomyopathy with recovered EF. He follows in the office with Dr. Jefferson. We have been asked to see in consultation for dizziness. Patient is seen and examined at bedside in no acute distress. Patient states yesterday at 7 AM he was getting out of bed and had acute onset of dizziness. He states that he laid back in bed for a bit and then proceeded to drop and go to the bathroom. He states after he was bending and Sunday in the lid of the toilet he had another episode of acute onset dizziness and fell. He states his helped him up and he was brought to the emergency department for further evaluation. He was lightheaded both episodes. He felt as if the room was spinning. He states it felt "as if he was walking in space". He denies any loss of consciousness, chest pain, palpitations. He does occasionally have shortness of breath. He denies any dyspnea on exertion, symptoms of orthopnea of PND. He states this has happened years prior he was told it was vertigo. He states he is an at-home blood pressure cough and states his blood pressure 118/60s. He states his heart rate has never been this low DIAGNOSTICS EKG reveals sinus bradycardia, heart rate 43, PAC, no significant ST or T-wave abnormalities. Telemetry tracings indicate sinus mechanism heart rate 4450s. X-ray of the humerus showed no acute fracture or dislocation. Chest x-ray showed no acute process Orthostatic vital signs in the emergency department were negative Most recent echocardiogram in the office 01/21/2021 revealed EF of 50%, moderate left ventricular hypertrophy, mild to moderate aortic regurgitation, mild mitral regurgitation, mild tricuspid regurgitation Most recent Lexiscan stress test February 2021 revealed fixed inferior wall defect with normal contractility consistent with diaphragmatic attenuation. no evidence of reversible ischemia. Normal ejection fraction. Laboratory reviewed, sodium 141, potassium 4.3, BUN 14, serum creatinine 0.8, tr oponin negative 1, UA negative, COVID-19 PCR negative Current cardiac medications include Toprol 50 mg daily, amiodarone 100 mg daily, atorvastatin 20 mg daily, Xarelto 20 mg nightly REVIEW OF SYSTEMS At the time of my exam: CONSTITUTIONAL: Denies fever or chills. +fall CARDIOVASCULAR: Denies chest pain, +shortness of breath,Denies orthopnea, PND or palpitations. RESPIRATORY: Denies cough. GASTROINTESTINAL: Denies abdominal pain, diarrhea, constipation, nausea or vomiting. MUSCULOSKELETAL: Denies myalgias. NEUROLOGIC: +dizziness +lightheadedness Denies numbness, tingling, headacbe or weakness. ENDOCRINE: Denies fatigue, weight change, polydipsia or polyurina. GENITOURINARY: Denies burning, hematuria or urgency with micturation. HEMATOLOGIC: Denies history of anemia or bleeding. PHYSICAL EXAMINATION Blood pressure 125/73, heart rate 58, afebrile, maintaining oxygen saturations on room air. CONSTITUTIONAL: No apparent distress. HEENT: Head is normocephalic. Pupils are equal, round. Sclerae anicteric. Mucous membranes of the mouth are moist. No JVD. No carotid bruit. CHEST EXAMINATION: Lungs are clear to auscultation. No chest wall tenderness is noted on palpation or with deep breathing. HEART EXAMINATION: Regular rate and rhythm. S1, S2 heard. Systolic murmur noted, No gallops or rub. ABDOMEN: Soft, nontender. Positive bowel sounds. EXTREMITIES: 2+ peripheral pulses, no lower extremity edema and no calf tenderness. NEUROLOGIC EXAMINATION: Patient is awake, alert and oriented x3. ASSESSMENT Acute onset dizziness Sinus bradycardia Persistent atrial fibrillation s/p cryoablation in February 2021, on Xarelto Hypertension Dyslipidemia PLAN Orthostatics this morning negative Hold beta ronak and amiodarone Check TSH Recommend walking patient to assess chronotropic response If patient is stable, and equipment monitor phototypesetting with no acute findings, ok to discharge later today and set up for event monitor placement in the office after discharge. Called [facility] office they're able to place an event monitor on the patient at 11am tomorrow 06/01/21. Patient to follow up in the office with Dr. Jefferson. Nurse Practitioner note has been reviewed, I agree with a documented findings and plan of care. Patient was seen and examined. Past Medical History Past Medical History: Atrial Fibrillation, GERD/Reflux Additional Past Medical History / Comment(s): Cancer R ureter, R hydronephrosis,bladder ca, skin cancer , States no HTN-takes rx for thickened wall of herart., enlarged prostate. GERD, History of Any Multi-Drug Resistant Organisms: None Reported Past Surgical History: Ablation, Back Surgery, Joint Replacement, Tonsillectomy Additional Past Surgical History / Comment(s): 03/01/16 Distal R ureterectomy with ureteral reimplant., 01/2016 R ureteroscopy with bx and vaporization, removal of skin cancer from rt shoulder/R bicep, colonoscopies with polypectomy, Total Right Hip, L knee replacement, Cataracts, Left TKA, cardioversion Past Anesthesia/Blood Transfusion Reactions: No Reported Reaction Past Psychological History: No Psychological Hx Reported Smoking Status: Former smoker Past Alcohol Use History: Rare Additional Past Alcohol Use History / Comment(s): QUIT 1999- WAS UP TO 2 PPD WHEN HE QUIT- smoked 45-50 yrs. Pt states he has a drink occasionally. Past Drug Use History: None Reported - Past Family History Mother Family Medical History: COPD Additional Family Medical History / Comment(s): Mother at age 77 from Emphysema. Father Family Medical History: Cancer Additional Family Medical History / Comment(s): Father of complications with his prostate cancer at the age of 65 yrs. Medications and Allergies Home Medications Medication Instructions Recorded Confirmed Type Acetaminophen Tab [Tylenol] 1,000 mg PO TID 11/18/19 05/30/21 History Tamsulosin [Flomax] 0.4 mg PO DAILY 12/03/20 05/30/21 History Atorvastatin [Lipitor] 20 mg PO HS 01/10/21 05/30/21 History Rivaroxaban [Xarelto] 20 mg PO HS 05/30/21 05/30/21 History Allergies Allergy/AdvReac Type Severity Reaction Status Date / Time No Known Allergies Allergy Verified 05/30/21 12:03 Physical Exam Vitals: Vital Signs Temp Pulse Pulse Resp BP BP Pulse Ox 05/31/21 02:00 98 F 57 L 18 120/72 94 L 05/30/21 21:53 49 L 18 05/30/21 20:17 67 18 155/73 97 05/30/21 20:00 97.9 F 49 L 18 160/88 96 05/30/21 18:00 60 18 124/63 97 05/30/21 17:00 55 L 18 139/79 97 05/30/21 16:00 56 L 18 125/73 98 05/30/21 15:00 58 L 18 139/75 97 05/30/21 14:02 57 L 18 123/73 05/30/21 14:01 53 L 18 117/68 98 05/30/21 14:00 50 L 18 109/66 99 05/30/21 12:00 48 L 18 97 05/30/21 11:46 46 L 18 127/96 96 05/30/21 10:41 97.4 F L 50 L 18 153/76 97 Intake and Output 05/30/21 05/31/21 05/31/21 22:59 06:59 14:59 Intake Total 200 0 Output Total 700 200 Balance 200 -700 -200 Intake: Oral 200 0 Output: Urine 700 200 Other: Voiding Method Toilet Weight 98.883 kg Results 05/30/21 12:20 05/30/21 12:20 Cardiac Enzymes 05/30/21 05/30/21 Range/Units 12:20 12:20 AST 26 (17-59) U/L Troponin I <0.012 (0.000-0.034) ng/mL Coagulation 05/30/21 Range/Units 12:20 PT 12.7 H (9.0-12.0) sec CBC 05/30/21 Range/Units 12:20 WBC 9.3 (3.8-10.6) k/uL RBC 4.48 (4.30-5.90) m/uL Hgb 15.3 (13.0-17.5) gm/dL Hct 44.8 (39.0-53.0) % Plt Count 151 (150-450) k/uL Comprehensive Metabolic Panel 05/30/21 Range/Units 12:20 Sodium 141 (137-145) mmol/L Potassium 4.3 (3.5-5.1) mmol/L Chloride 111 H (98-107) mmol/L Carbon Dioxide 25 (22-30) mmol/L BUN 14 (9-20) mg/dL Creatinine 0.83 (0.66-1.25) mg/dL Glucose 99 (74-99) mg/dL Calcium 9.2 (8.4-10.2) mg/dL AST 26 (17-59) U/L ALT 33 (4-49) U/L Alkaline Phosphatase 98 (38-126) U/L Total Protein 6.1 L (6.3-8.2) g/dL Albumin 4.0 (3.5-5.0) g/dL Current Medications Generic Name Dose Route Start Last Admin Trade Name Freq PRN Reason Stop Dose Admin Acetaminophen 650 mg 05/30/21 14:44 Acetaminophen Tab 325 Mg Tab PO Q6HR PRN Mild Pain or Fever > 100.5 Acetaminophen 1,000 mg 05/30/21 16:00 05/30/21 22:42 Acetaminophen Tab 500 Mg Tab PO Not Given TID VY Atorvastatin Calcium 20 mg 05/30/21 21:00 05/30/21 22:41 Atorvastatin 20 Mg Tab PO 20 mg HS VY Administration Naloxone HCl 0.2 mg 05/30/21 14:42 Naloxone 0.4 Mg/Ml 1 Ml Vial IV Q2M PRN Opioid Reversal Rivaroxaban 20 mg 05/30/21 21:00 05/30/21 22:41 Rivaroxaban 20 Mg Tab PO 20 mg HS VY Administration Protocol Tamsulosin HCl 0.4 mg 05/31/21 09:00 Tamsulosin 0.4 Mg Cap.Er.24h PO DAILY VY Intake and Output 05/30/21 05/31/21 05/31/21 22:59 06:59 14:59 Intake Total 200 0 Output Total 700 200 Balance 200 -700 -200 Intake: Oral 200 0 Output: Urine 700 200 Other: Voiding Method Toilet Weight 98.883 kg 05/30/21 12:20 05/30/21 12:20
[2021-05-31] MEDS ORDERED: ACETAMINOPHEN TAB 500 MG TAB PO PRN (11:01)
[2021-05-31] MEDS: MECLIZINE 25 MG TAB PO SCH ×2 (12:40→21:17)
--- NOTE | 2021-05-31 14:07 | P.PN ---
Subjective Patient was seen and evaluated by me today. He was sitting up in the chair. Patient reports severe dizziness when he moves his head or get up to walk around. He denies any dizziness at rest. He reported history of vertigo in the past. Heart rate improved significantly. Objective - Vital Signs Vital signs: Vital Signs Temp 98.1 F 05/31/21 07:00 Pulse 56 L 05/31/21 08:31 Resp 18 05/31/21 08:00 BP 120/66 05/31/21 08:31 Pulse Ox 95 05/31/21 07:00 Intake & Output 05/30/21 05/31/21 05/31/21 18:59 06:59 18:59 Intake Total 200 Output Total 700 200 Balance -500 -200 Weight 98.883 kg 98.883 kg Intake: Oral 200 Output: Urine 700 200 Other: Voiding Method Toilet Toilet - Exam General: The patient is awake and alert, in no distress Eye: there is normal conjunctiva bilaterally. Neck: The neck is supple, there is no JVD. Cardiovascular: Normal S1-S2, no S3-S4, no murmurs. Respiratory: Lungs clear to auscultation bilaterally Gastrointestinal: Abdomen is soft, nontender Musculoskeletal: There is no pedal edema. Neurological:. Speech is normal. Skin: Skin is warm and dry - Labs CBC & Chem 7: 05/30/21 12:20 05/30/21 12:20 Assessment and Plan Assessment: Patient is an 81-year-old male past medical history of A. fib with ablation in February 2021, GERD, and prior ureter cancer who presented to the ER with complaints of dizziness. In the ER he underwent an extensive evaluation. Initial vital signs were within normal limits. Her underwent orthostatic vital signs which were negative. X-ray of the humerus showed no acute fracture or dislocation. Chest x-ray showed no acute process. Dizziness with history of vertigo Sinus bradycardia -Metoprolol and amiodarone discontinue -Start meclizine 3 times a day -Consult cardiology, plan for event monitor outpatient -Patient reports he states he had a recent echocardiogram, we'll attempt to obtain records from office -PT/OT evaluation - negative orthostatics History of A. fib status post ablation Chronic: Bladder cancer status post treatment, ureter cancer status post treatment Enlarged prostate Skin cancer The patient is placed in observation with an anticipated less than 2 midnight stay for evaluation of dizziness . Surrogate decision-maker: CODE STATUS: full DVT prophylaxis: SCDs Discussed with: Patient, nursing, ED provider Anticipated discharge place: home A total of 35 minutes was spent on the care of this complex patient more than 50% of the time was spent in counseling and care coordination.
[2021-05-31] MEDS: RIVAROXABAN 20 MG TAB PO SCH (21:17)
[2021-05-31] MEDS: ATORVASTATIN 20 MG TAB PO SCH (21:17)
[2021-05-31 23:53] VITALS: RESP 18
[2021-06-01 07:41] VITALS: BP 123/72; PULSE 62; TEMP 98
[2021-06-01] MEDS: TAMSULOSIN 0.4 MG CAP.ER.24H PO SCH (08:08)
[2021-06-01] MEDS: MECLIZINE 25 MG TAB PO SCH (08:08)
--- NOTE | 2021-06-01 10:10 | P.PN ---
Subjective This is a pleasant 81-year-old male past medical history significant for persistent atrial fibrillation status post cryoablation February 2021, hypertension, hyperlipidemia former smoker, history non-ischemic cardiomyopathy with recovered EF. He follows in the office with Dr. Jefferson. We have been asked to see in consultation for dizziness. On 05/30 7 AM he was getting out of bed and had acute onset of dizziness. He states that he laid back in bed for a bit and then proceeded to drop and go to the bathroom. He states after he was bending and Sunday in the lid of the toilet he had another episode of acute onset dizziness and fell. He states his helped him up and he was brought to the emergency department for further evaluation. He was lightheaded both episodes. He felt as if the room was spinning. He states it felt "as if he was walking in space". He denies any loss of consciousness, chest pain, palpitations. He does occasionally have shortness of breath. He denies any dyspnea on exertion, symptoms of orthopnea of PND. He states this has happened years prior he was told it was vertigo. He states he is an at-home blood pressure cough and states his blood pressure 118/60s. He states his heart rate has never been this low. EKG reveals sinus bradycardia, heart rate 43, PAC, no significant ST or T-wave abnormalities.X-ray of the humerus showed no acute fracture or dislocation. Orthostatic vital signs in the emergency department were negative and negative 05/31 in the morning Most recent echocardiogram in the office 01/21/2021 revealed EF of 50%, moderate left ventricular hypertrophy, mild to moderate aortic regurgitation, mild mitral regurgitation, mild tricuspid regurgitation Most recent Lexiscan stress test February 2021 revealed fixed inferior wall defect with normal contractility consistent with diaphragmatic attenuation. no evidence of reversible ischemia. Normal ejection fraction. 06/01/21 Patient seen and examined at bedside, no acute distress. He endorses improvement in his dizziness. Telemetry reviewed patient in sinus mechanism HR 50-60s, no arrhythmia or pauses noted. He is able to walk in the halls yesterday his heart rates improved to the 70s. He denies any chest pain, palpitations, shortness of breath, lightheadedness. He's currently maintained on atorvastatin 20 mg nightly, meclizine 25 mg 3 times a day, Xarelto 20 mg nightly. His beta ronak and amiodarone are still on hold. PHYSICAL EXAMINATION Blood pressure 123/72, heart rate 62, afebrile, maintaining oxygen saturations on room air. CONSTITUTIONAL: No apparent distress. HEENT: Neck Supple. No JVD. No carotid bruit. CHEST EXAMINATION: Lungs are clear to auscultation. No chest wall tenderness is noted on palpation or with deep breathing. HEART EXAMINATION: Regular rate and rhythm. S1, S2 heard. Systolic murmur noted, No gallops or rub. ABDOMEN: Soft, nontender. Positive bowel sounds. EXTREMITIES: 2+ peripheral pulses, no lower extremity edema and no calf tenderness. NEUROLOGIC EXAMINATION: Patient is awake, alert and oriented x3. ASSESSMENT Acute onset dizziness Sinus bradycardia Persistent atrial fibrillation s/p cryoablation in February 2021, on Xarelto Hypertension Dyslipidemia PLAN Patient endorses improvement in dizziness. Telemetry reviewed patient in sinus mechanism HR 50-60s, no arrhythmia or pauses noted Hold beta ronak and amiodarone Continue statin and Xarelto Patient walking in the halls yesterday with improvement in heart rate in the 70s. From a cardiology perspective, patient is stable to be discharged. Recommend event monitor placement in the office after discharge. [facility] office they're able to place an event monitor on the patient at 11am today. Patient to follow up in the office with Dr. Jefferson. Nurse Practitioner note has been reviewed, I agree with a documented findings and plan of care. Patient was seen and examined. Objective - Vital Signs Vital signs: Vital Signs Temp 98 F 06/01/21 07:00 Pulse 62 06/01/21 07:00 Resp 18 06/01/21 07:00 BP 123/72 06/01/21 07:00 Pulse Ox 97 06/01/21 08:30 Intake & Output 05/31/21 06/01/21 06/01/21 18:59 06:59 18:59 Intake Total 240 Output Total 200 Balance -200 240 Intake: Oral 240 Output: Urine 200 Other: Voiding Method Toilet Toilet Urinal # Voids 2 2 1 - Labs CBC & Chem 7: 05/30/21 12:20 05/30/21 12:20
--- NOTE | 2021-06-01 10:23 | P.DS ---
Providers Date of admission: 05/30/21 14:31 Expected date of discharge: 06/01/21 Attending physician: Claudia Resendiz DO Consults: 05/30/21 14:43 Consult Physician Urgent Consulting Provider: [facility] Consult Reason/Comments: Bradycardia, dizziness Do you want consulting provider notified?: Yes Primary care physician: Enrico Lester MD Hospital Course: Patient is an 81-year-old male past medical history of A. fib with ablation in February 2021, GERD, and prior ureter cancer who presented to the ER with complaints of dizziness. In the ER he underwent an extensive evaluation. Initial vital signs were within normal limits. Her underwent orthostatic vital signs which were negative. X-ray of the humerus showed no acute fracture or dislocation. Chest x-ray showed no acute process. Patient was noted to be in sinus tachycardia. He was seen and evaluated by cardiology. Metoprolol and amiodarone were discontinued. Plan for event monitor as an outpatient. Appointment scheduled for 11 AM today. Patient's symptoms appeared to be more vertigo and improved with meclizine here in the hospital. He was given prescription for meclizine at home. He will follow-up with his primary care physician as needed. For further details about this hospitalization please refer to the electronic chart. Patient Condition at Discharge: Stable Plan - Discharge Summary Discharge Rx Participant: No New Discharge Prescriptions: New Meclizine [Antivert] 25 mg PO TID #30 tab Continue Acetaminophen Tab [Tylenol] 1,000 mg PO TID Tamsulosin [Flomax] 0.4 mg PO DAILY Atorvastatin [Lipitor] 20 mg PO HS Rivaroxaban [Xarelto] 20 mg PO HS Discontinued Metoprolol Succinate (ER) [Toprol Xl] 50 mg PO BID Amiodarone [Cordarone] 100 mg PO HS Discharge Medication List Acetaminophen Tab [Tylenol] 1,000 mg PO TID 11/18/19 [History] Tamsulosin [Flomax] 0.4 mg PO DAILY 12/03/20 [History] Atorvastatin [Lipitor] 20 mg PO HS 01/10/21 [History] Rivaroxaban [Xarelto] 20 mg PO HS 05/30/21 [History] Meclizine [Antivert] 25 mg PO TID #30 tab 06/01/21 [Rx] Follow up Appointment(s)/Referral(s): Praveena Jefferson MD [STAFF PHYSICIAN] - 2 Weeks Enrico Lester MD [Primary Care Provider] - 1-2 days Activity/Diet/Wound Care/Special Instructions: Important Instructions: -Please stop your metoprolol succinate (Toprol) and amiodarone- -Please go to [facility] 06/01/21 at 11:00AM to have an event monitor placed. -Follow up with Dr. Jefferson in the office within 2-3 weeks. Discharge Disposition: HOME SELF-CARE
== END 2021-06-01 11:17 | disposition home or self-care (01) ==
LOC: EC 10:21 → 6NMEDSUR 14:31
PROVIDERS: ADMIT Internal Medicine; ATTEND Internal Medicine
DX: R00.1 Bradycardia, unspecified (principal); R42 Dizziness and giddiness; K21.9 Gastro-esophageal reflux disease without esophagitis; I48.19 Other persistent atrial fibrillation; R00.0 Tachycardia, unspecified; I10 Essential (primary) hypertension; Z20.822 Contact with and (suspected) exposure to COVID-19; E78.5 Hyperlipidemia, unspecified; Z85.89 Personal history of malignant neoplasm of other organs and systems; Z85.51 Personal history of malignant neoplasm of bladder; Z85.54 Personal history of malignant neoplasm of ureter; N40.0 Benign prostatic hyperplasia without lower urinary tract symptoms; Z85.828 Personal history of other malignant neoplasm of skin; Z96.641 Presence of right artificial hip joint; Z96.652 Presence of left artificial knee joint; Z98.49 Cataract extraction status, unspecified eye; Z96.0 Presence of urogenital implants; Z87.891 Personal history of nicotine dependence; Z98.890 Other specified postprocedural states; Z82.5 Family history of asthma and other chronic lower respiratory diseases; Z80.42 Family history of malignant neoplasm of prostate; Z79.01 Long term (current) use of anticoagulants; Z79.899 Other long term (current) drug therapy
CPT/HCPCS: 96360; 99285; 36415; 94760; 93005; 97162; 80053; 84443; 84484; 85025; 85610; 81003; 87635; 73060; 71046; G0378 ×3

== ENCOUNTER 2021-12-27 14:19 | Inpatient (IN) | payer MEDICARE, BC ==
[2021-12-27] MEDS ORDERED: DILTIAZEM DRIP BOLUS FROM BAG 1 MG SOLN IV ONE (15:00)
[2021-12-27] MEDS ORDERED: DILTIAZEM 125 MG in SODIUM CHLORIDE 0.9% 100 ML IV SCH (15:00)
[2021-12-27] MEDS ORDERED: SODIUM CHLORIDE 0.9% 500 ML 500 ML IV STA (15:00)
--- NOTE | 2021-12-27 15:03 | ED ---
General Adult HPI - General Chief complaint: Chest Pain Stated complaint: Chest Pain, Arrythmia Time Seen by Provider: 12/27/21 14:25 Source: patient, RN notes reviewed, old records reviewed Mode of arrival: wheelchair - History of Present Illness Initial comments: This is an 81-year-old male who presents emergency Department with a past medical history significant for atrial fibrillation since October 2020. Patient states he did have an ablation but today he woke up felt fine all of a sudden at about 9:30 started feeling lightheaded and felt some chest palpitations with a little bit of pressure. Patient denies any shortness of breath or difficulty breathing. Patient states it reminded him of when he had atrial fibrillation. Patient denies any shortness breath currently or chest pain currently. Patient denies any recent fever chills or cough per patient denies abdominal pain patient denies nausea vomiting diarrhea. The leg swelling or calf tenderness. - Related Data Home Medications Medication Instructions Recorded Confirmed Acetaminophen Tab [Tylenol] 1,000 mg PO TID 11/18/19 12/27/21 Tamsulosin [Flomax] 0.4 mg PO DAILY 12/03/20 12/27/21 Atorvastatin [Lipitor] 20 mg PO DAILY 01/10/21 12/27/21 Rivaroxaban [Xarelto] 20 mg PO HS 05/30/21 12/27/21 Furosemide [Lasix] 20 mg PO DAILY 12/27/21 12/27/21 Metoprolol Succinate [Toprol XL] 25 mg PO BID 12/27/21 12/27/21 Allergies Allergy/AdvReac Type Severity Reaction Status Date / Time No Known Allergies Allergy Verified 12/27/21 16:09 Review of Systems ROS Statement: Those systems with pertinent positive or pertinent negative responses have been documented in the HPI. ROS Other: All systems not noted in ROS Statement are negative. Past Medical History Past Medical History: Atrial Fibrillation, GERD/Reflux Additional Past Medical History / Comment(s): Cancer R ureter, R hydronephrosis, bladder ca, skin cancer , States no HTN-takes rx for thickened wall of herart., enlarged prostate. GERD, History of Any Multi-Drug Resistant Organisms: None Reported Past Surgical History: Ablation, Back Surgery, Joint Replacement, Tonsillectomy Additional Past Surgical History / Comment(s): 03/01/16 Distal R ureterectomy with ureteral reimplant., 01/2016 R ureteroscopy with bx and vaporization, removal of skin cancer from rt shoulder/R bicep, colonoscopies with polypectomy, Total Right Hip, L knee replacement, Cataracts, Left TKA, cardioversion Past Anesthesia/Blood Transfusion Reactions: No Reported Reaction Past Psychological History: No Psychological Hx Reported Smoking Status: Former smoker Past Alcohol Use History: Rare Past Drug Use History: None Reported - Past Family History Mother Family Medical History: COPD Additional Family Medical History / Comment(s): Mother at age 77 from Emphysema. Father Family Medical History: Cancer Additional Family Medical History / Comment(s): Father of complications with his prostate cancer at the age of 65 yrs. General Exam - General Exam Comments Initial Comments: GENERAL: Patient is well-developed and well-nourished. Patient is nontoxic and well- hydrated and is in no acute distress. ENT: Neck is soft and supple. No significant lymphadenopathy is noted. Oropharynx is clear. Moist mucous membranes. Neck has full range of motion without eliciting any pain. EYES: The sclera were anicteric and conjunctiva were pink and moist. Extraocular movements were intact and pupils were equal round and reactive to light. Eyelids were unremarkable. PULMONARY: Unlabored respirations. Good breath sounds bilaterally. No audible rales rhonchi or wheezing was noted. CARDIOVASCULAR: Heart is regular rate and rhythm at about 140 beats minute ABDOMEN: Soft and nontender with normal bowel sounds. SKIN: Skin is clear with no lesions or rashes and otherwise unremarkable. NEUROLOGIC: Patient is alert and oriented x3. Cranial nerves II through XII are grossly intact. Motor and sensory are also intact. Normal speech, volume and content. Symmetrical smile. MUSCULOSKELETAL: Normal extremities with adequate strength and full range of motion. LYMPHATICS: No significant lymphadenopathy is noted PSYCHIATRIC: Normal psychiatric evaluation. Course Vital Signs 12/27/21 12/27/21 12/27/21 14:22 14:40 16:02 Temperature 97.1 F L Pulse Rate 144 H 118 H 71 Respiratory 18 21 18 Rate Blood Pressure 115/74 97/77 108/70 O2 Sat by Pulse 97 96 98 Oximetry Medical Decision Making - Medical Decision Making EKG shows possible atrial flutter at a rate of 138 bpm TN interval is 170 QRS is 155 Q-T intervals 291 QTC is 371. EKG shows no ST segment elevation. Patient was placed on Cardizem to slow the heart rate down patient's heart rate was in the 130s. Patient was not placed on heparin because he started on Xarelto. I spoke with the ultrasound physicians they agreed to admit the patient admitted the patient reveals a consult cardiology. - Lab Data Result diagrams: 12/27/21 15:06 12/27/21 15:06 Lab Results 12/27/21 12/27/21 12/27/21 Range/Units 15:06 15:06 15:06 WBC 8.9 (3.8-10.6) k/uL RBC 4.65 (4.30-5.90) m/uL Hgb 15.6 (13.0-17.5) gm/dL Hct 47.1 (39.0-53.0) % MCV 101.3 H (80.0-100.0) fL MCH 33.5 (25.0-35.0) pg MCHC 33.1 (31.0-37.0) g/dL RDW 12.9 (11.5-15.5) % Plt Count 183 (150-450) k/uL MPV 9.7 Neutrophils % 72 % Lymphocytes % 21 % Monocytes % 5 % Eosinophils % 1 % Basophils % 1 % Neutrophils # 6.4 (1.3-7.7) k/uL Lymphocytes # 1.8 (1.0-4.8) k/uL Monocytes # 0.4 (0-1.0) k/uL Eosinophils # 0.1 (0-0.7) k/uL Basophils # 0.0 (0-0.2) k/uL PT 11.8 (9.0-12.0) sec INR 1.1 (<1.2) APTT 28.7 (22.0-30.0) sec Sodium 141 (137-145) mmol/L Potassium 4.2 (3.5-5.1) mmol/L Chloride 109 H (98-107) mmol/L Carbon Dioxide 27 (22-30) mmol/L Anion Gap 5 mmol/L BUN 14 (9-20) mg/dL Creatinine 0.98 (0.66-1.25) mg/dL Est GFR (CKD-EPI)AfAm 83 (>60 ml/min/1.73 sqM) Est GFR (CKD-EPI)NonAf 72 (>60 ml/min/1.73 sqM) Glucose 144 H (74-99) mg/dL Calcium 8.8 (8.4-10.2) mg/dL Magnesium 2.0 (1.6-2.3) mg/dL Total Bilirubin 0.9 (0.2-1.3) mg/dL AST 32 (17-59) U/L ALT 26 (4-49) U/L Alkaline Phosphatase 64 (38-126) U/L Troponin I (0.000-0.034) ng/mL Total Protein 6.1 L (6.3-8.2) g/dL Albumin 3.8 (3.5-5.0) g/dL TSH 1.380 (0.465-4.680) mIU/L 12/27/21 Range/Units 15:06 WBC (3.8-10.6) k/uL RBC (4.30-5.90) m/uL Hgb (13.0-17.5) gm/dL Hct (39.0-53.0) % MCV (80.0-100.0) fL MCH (25.0-35.0) pg MCHC (31.0-37.0) g/dL RDW (11.5-15.5) % Plt Count (150-450) k/uL MPV Neutrophils % % Lymphocytes % % Monocytes % % Eosinophils % % Basophils % % Neutrophils # (1.3-7.7) k/uL Lymphocytes # (1.0-4.8) k/uL Monocytes # (0-1.0) k/uL Eosinophils # (0-0.7) k/uL Basophils # (0-0.2) k/uL PT (9.0-12.0) sec INR (<1.2) APTT (22.0-30.0) sec Sodium (137-145) mmol/L Potassium (3.5-5.1) mmol/L Chloride (98-107) mmol/L Carbon Dioxide (22-30) mmol/L Anion Gap mmol/L BUN (9-20) mg/dL Creatinine (0.66-1.25) mg/dL Est GFR (CKD-EPI)AfAm (>60 ml/min/1.73 sqM) Est GFR (CKD-EPI)NonAf (>60 ml/min/1.73 sqM) Glucose (74-99) mg/dL Calcium (8.4-10.2) mg/dL Magnesium (1.6-2.3) mg/dL Total Bilirubin (0.2-1.3) mg/dL AST (17-59) U/L ALT (4-49) U/L Alkaline Phosphatase (38-126) U/L Troponin I <0.012 (0.000-0.034) ng/mL Total Protein (6.3-8.2) g/dL Albumin (3.5-5.0) g/dL TSH (0.465-4.680) mIU/L Critical Care Time Critical Care Time: Yes Total Critical Care Time: 35 Disposition Clinical Impression: Atrial flutter with rapid ventricular response Disposition: ADMITTED IP TO THIS HOSP Referrals: Enrico Lester MD [Primary Care Provider] - 1-2 days Time of Disposition: 16:40
[2021-12-27 15:17] LABS: Basophils % (A) 1 %; Eosinophils # (A) 0.1 k/uL (0-0.7); Eosinophils % (A) 1 %; HCT 47.1 % (39.0-53.0); HGB 15.6 gm/dL (13.0-17.5); Lymphocytes # (A) 1.8 k/uL (1.0-4.8); Lymphocytes % (A) 21 %; MCH 33.5 pg (25.0-35.0); MCHC 33.1 g/dL (31.0-37.0); MCV 101.3 fL (80.0-100.0); Mean Platelet Volume 9.7; Monocytes # (A) 0.4 k/uL (0-1.0); Monocytes % (A) 5 %; Neutrophils # (A) 6.4 k/uL (1.3-7.7); Neutrophils % (A) 72 %; Platelet Count 183 k/uL (150-450); RBC 4.65 m/uL (4.30-5.90); RDW 12.9 % (11.5-15.5); WBC 8.9 k/uL (3.8-10.6)
[2021-12-27 15:28] LABS: Albumin 3.8 g/dL (3.5-5.0); Calcium 8.8 mg/dL (8.4-10.2); Potassium 4.2 mmol/L (3.5-5.1); Total Bilirubin 0.9 mg/dL (0.2-1.3); Total Protein 6.1 g/dL (6.3-8.2)
[2021-12-27 15:30] LABS: INR 1.1 (<1.2); Partial Thromboplastin Time 28.7 sec (22.0-30.0); Prothrombin Time 11.8 sec (9.0-12.0)
--- NOTE | 2021-12-27 15:50 | XR ---
EXAMINATION TYPE: XR chest 2V DATE OF EXAM: 12/27/2021 COMPARISON: 05/30/2021 INDICATION: Dysrhythmia chest pain TECHNIQUE: Frontal and lateral views of the chest are obtained. FINDINGS: The heart size is normal. The pulmonary vasculature is normal. Mild linear opacities at the left base. Correlate for atelectasis.. There is some hyperinflation pre sent. IMPRESSION: 1. Suggestion of mild plate atelectasis left diaphragm. 2. Hyperinflation and flattening of the diaphragms compatible with COPD.
[2021-12-27] MEDS ORDERED: NITROGLYCERIN SL TABS 0.4 MG TAB SUBLINGUAL PRN (16:50)
--- NOTE | 2021-12-27 18:36 | P.HPIM ---
History of Present Illness Chief Complaint: Dizziness This is a very pleasant 81-year-old male with history of atrial fibrillation currently on metoprolol and Xarelto is coming in for evaluation of dizziness. Patient states that he was in usual state of health this morning however this morning he started experiencing lightheadedness when walking around. This prompted him to sit down and check his pulse he notices that his heart is racing that his pulse is racing and he had some chest tightness. EMS was called and he was transferred to emergency department. He was found to have A. fib with RVR. Blood pressures were stable. He did not feel any chest pain or shortness of breath. He was given Cardizem and started on Cardizem drip and he now converted to normal sinus rhythm. Patient typically follows with Dr. Jefferson; last visit 2 weeks ago that time started on Lasix. He denies any fever or chills dysuria diarrhea and nausea vomiting otherwise. He is chronically on Xarelto. He currently experiencing no discomfort. Review of Systems Negative except as mentioned in HPI Past Medical History Past Medical History: Atrial Fibrillation, GERD/Reflux Additional Past Medical History / Comment(s): Cancer R ureter, R hydronephrosis,bladder ca, skin cancer , States no HTN-takes rx for thickened wall of herart., enlarged prostate. GERD, History of Any Multi-Drug Resistant Organisms: None Reported Past Surgical History: Ablation, Back Surgery, Joint Replacement, Tonsillectomy Additional Past Surgical History / Comment(s): 03/01/16 Distal R ureterectomy with ureteral reimplant., 01/2016 R ureteroscopy with bx and vaporization, removal of skin cancer from rt shoulder/R bicep, colonoscopies with polypectomy, Total Right Hip, L knee replacement, Cataracts, Left TKA, cardioversion Past Anesthesia/Blood Transfusion Reactions: No Reported Reaction Past Psychological History: No Psychological Hx Reported Additional Psychological History / Comment(s): . Smoking Status: Never smoker Past Alcohol Use History: Rare Additional Past Alcohol Use History / Comment(s): QUIT 1999- WAS UP TO 2 PPD WHEN HE QUIT- smoked 45-50 yrs. Pt states he has a drink occasionally. Past Drug Use History: None Reported - Past Family History Mother Family Medical History: COPD Additional Family Medical History / Comment(s): Mother at age 77 from Emphysema. Father Family Medical History: Cancer Additional Family Medical History / Comment(s): Father of complications with his prostate cancer at the age of 65 yrs. Medications and Allergies Home Medications Medication Instructions Recorded Confirmed Type Acetaminophen Tab [Tylenol] 1,000 mg PO TID 11/18/19 12/27/21 History Tamsulosin [Flomax] 0.4 mg PO DAILY 12/03/20 12/27/21 History Atorvastatin [Lipitor] 20 mg PO DAILY 01/10/21 12/27/21 History Rivaroxaban [Xarelto] 20 mg PO HS 05/30/21 12/27/21 History Furosemide [Lasix] 20 mg PO DAILY 12/27/21 12/27/21 History Metoprolol Succinate [Toprol XL] 25 mg PO BID 12/27/21 12/27/21 History Allergies Allergy/AdvReac Type Severity Reaction Status Date / Time No Known Allergies Allergy Verified 12/27/21 16:09 Physical Exam Vitals: Vital Signs Temp Pulse Pulse Resp BP BP Pulse Ox 12/27/21 18:11 98.0 F 85 18 130/80 97 12/27/21 17:43 71 16 105/78 97 12/27/21 16:02 71 18 108/70 98 12/27/21 14:40 118 H 21 97/77 96 12/27/21 14:22 97.1 F L 144 H 18 115/74 97 Intake and Output 12/27/21 12/27/21 12/27/21 06:59 14:59 22:59 Other: Weight 95.708 kg 95.708 kg Awake alert oriented 3 no any distress Head and neck: Atraumatic normocephalic anicteric sclera oropharyngeal mucosa is moist without lesions no neck masses no JVD Lungs: Clear to auscultation no wheezing Cardiovascular: Regular rhythm and rate S1-S2 Abdomen: Bowel sounds present throughout soft nontender nondistended no flank tenderness Extremities: No peripheral edema no calf tenderness DP pulses present bilateral no cyanosis Neurological: No cranial nerve deficits no focal neurological deficit Muscular skeletal: No joint swelling or deformities Skin no rashes no bruising Results CBC & Chem 7: 12/27/21 15:06 12/27/21 15:06 Labs: Abnormal Lab Results - Last 24 Hours (Table) 12/27/21 12/27/21 Range/Units 15:06 15:06 MCV 101.3 H (80.0-100.0) fL Chloride 109 H (98-107) mmol/L Glucose 144 H (74-99) mg/dL Total Protein 6.1 L (6.3-8.2) g/dL Thrombosis Risk Factor Assmnt - Choose All That Apply Each Factor Represents 1 point: Obesity (BMI >25) Each Risk Factor Represents 3 Points: Age 75 years or older Thrombosis Risk Factor Assessment Total Risk Factor Score: 4 Thrombosis Risk Factor Assessment Level: Moderate Risk Assessment and Plan Plan: #Paroxysmal A. fib with RVR Started on Cardizem drip Clinically seems to be converted to normal sinus rhythm Wean off the drip, continue home metoprolol and Xarelto TSH Electrolyte panel within normal limits Echocardiogram Cardiology consultation Cardiac telemetry #BPH Continue Flomax #Hyperlipidemia Continue atorvastatin May need more than 2 minutes hospital stay Full code is a surrogate decision-maker Home medications reviewed
[2021-12-27] MEDS: RIVAROXABAN 20 MG TAB PO SCH (20:12)
[2021-12-27] MEDS ORDERED: METOPROLOL SUCCINATE (ER) 25 MG TAB.ER.24H PO SCH (21:00)
[2021-12-27] MEDS: ACETAMINOPHEN TAB 500 MG TAB PO SCH (21:04)
[2021-12-28] MEDS: ACETAMINOPHEN TAB 500 MG TAB PO SCH ×3 (08:45→20:35)
[2021-12-28] MEDS: ATORVASTATIN 20 MG TAB PO SCH (08:45)
[2021-12-28] MEDS: METOPROLOL SUCCINATE (ER) 50 MG TAB.ER.24H PO SCH ×2 (08:45→20:35)
[2021-12-28] MEDS: TAMSULOSIN 0.4 MG CAP.ER.24H PO SCH (08:45)
[2021-12-28] MEDS ORDERED: ASPIRIN 325 MG TAB PO SCH (09:00)
[2021-12-28] MEDS ORDERED: AMIODARONE 200 MG TAB PO SCH (09:00)
[2021-12-28 09:28] LABS: Chol/HDL Ratio 4.55 Ratio; LDL Cholesterol,Calculated 105.2 mg/dL (0.0-131.0)
--- NOTE | 2021-12-28 11:14 | P.CRDCN ---
History of Present Illness Consult date: 12/28/21 History of present illness: HISTORY OF PRESENT ILLNESS: This is a 81-year-old male with a past medical history significant for paroxysmal atrial fibrillation with previous ablation, cardiomyopathy, hypertension, and hyperlipidemia. Patient follows in the office with Dr. Jefferson. We have been asked to see the patient in consultation for afib with RVR. Patient examined at the bedside. Patient presented to the hospital a chief complaint of palpitations and shortness of breath. Patient was found to be in A. fib with RVR. Patient was started on a Cardizem drip. Patient remains in atrial fibrillation this morning with controlled ventricular rate. * EKG reveals A. fib with RVR * Chest xray suggestion of mild plate atelectasis left diaphragm. Hyperinflation and flattening of the diaphragms compatible COPD. * Laboratory data: WBC 8.9. Hemoglobin 15.6. Platelet count 183. Sodium 141. Potassium 4.2. BUN 14. Creatinine 0.98. Troponin negative 3. TSH 1.30. * Current home cardiac medications include Lipitor 20 alert times daily, Lasix 20 mg daily, metoprolol succinate 25 mg twice a day, and Xarelto 20 mg at night * Most recent echocardiogram obtained in January 2021 revealed ejection fraction 50%, mild to moderate aortic regurgitation, mild MR, mild TR * Patient underwent Lexiscan stress test in February 2021 revealing inferior wall fixed defect with normal contractility consistent with diaphragmatic attenuation. There is no stress-induced ischemia. REVIEW OF SYSTEMS: At the time of my exam: CONSTITUTIONAL: Denies fever or chills. HEENT: Denies blurred vision, vision changes, or eye pain. Denies hemoptysis CARDIOVASCULAR: Denies chest pain. Denies orthopnea. Denies PND. Denies palpitations RESPIRATORY: Denies shortness of breath. GASTROINTESTINAL: Denies abdominal pain. Denies nausea or vomiting. HEMATOLOGIC: Denies bleeding disorders. GENITOURINARY: Denies any blood in urine. SKIN: Denies pruitis. Denies rash. PHYSICAL EXAM: VITAL SIGNS: Reviewed. GENERAL: Well-developed in no acute distress. HEENT: Head is normocephalic. Pupils are equal, round. Sclerae anicteric. Mucous membranes of the mouth are moist. Neck supple. No JVD or thyromegaly LUNGS: Respirations even and unlabored. Lungs essentially clear to auscultation bilaterally. HEART: Irregular rate and rhythm. S1 and S2 heard. ABDOMEN: Soft. Nondistended. Nontender. EXTREMITIES: Normal range of motion. No clubbing or cyanosis. Peripheral pulses intact. No lower extremity edema NEUROLOGIC: Awake and alert. Oriented x 3. ASSESSMENT: Palpitations Paroxysmal atrial fibrillation with RVR History of A. fib ablation History of cardiomyopathy with subsequent improvement in EF Hypertension Hyperlipidemia PLAN: Obtain 2D echo to assess cardiac structure and function Resume home cardiac medications Increase metoprolol to 50 Discontinue IV Cardizem If LV function is preserved on echocardiogram, will add Multaq 400mg BID Continue telemetry monitoring Further recommendations pending patient course Nurse practitioner note has been reviewed by physician. Signing provider agrees with the documented findings, assessment, and plan of care. Past Medical History Past Medical History: Atrial Fibrillation, GERD/Reflux Additional Past Medical History / Comment(s): Cancer R ureter, R hydronephrosis,bladder ca, skin cancer , States no HTN-takes rx for thickened w all of herart., enlarged prostate. GERD, History of Any Multi-Drug Resistant Organisms: None Reported Past Surgical History: Ablation, Back Surgery, Joint Replacement, Tonsillectomy Additional Past Surgical History / Comment(s): 03/01/16 Distal R ureterectomy with ureteral reimplant., 01/2016 R ureteroscopy with bx and vaporization, removal of skin cancer from rt shoulder/R bicep, colonoscopies with polypectomy, Total Right Hip, L knee replacement, Cataracts, Left TKA, cardioversion Past Anesthesia/Blood Transfusion Reactions: No Reported Reaction Past Psychological History: No Psychological Hx Reported Additional Psychological History / Comment(s): . Smoking Status: Never smoker Past Alcohol Use History: Rare Additional Past Alcohol Use History / Comment(s): QUIT 1999- WAS UP TO 2 PPD WHEN HE QUIT- smoked 45-50 yrs. Pt states he has a drink occasionally. Past Drug Use History: None Reported - Past Family History Mother Family Medical History: COPD Additional Family Medical History / Comment(s): Mother at age 77 from Emphysema. Father Family Medical History: Cancer Additional Family Medical History / Comment(s): Father of complications with his prostate cancer at the age of 65 yrs. Medications and Allergies Home Medications Medication Instructions Recorded Confirmed Type Acetaminophen Tab [Tylenol] 1,000 mg PO TID 11/18/19 12/27/21 History Tamsulosin [Flomax] 0.4 mg PO DAILY 12/03/20 12/27/21 History Atorvastatin [Lipitor] 20 mg PO DAILY 01/10/21 12/27/21 History Rivaroxaban [Xarelto] 20 mg PO HS 05/30/21 12/27/21 History Furosemide [Lasix] 20 mg PO DAILY 12/27/21 12/27/21 History Metoprolol Succinate [Toprol XL] 25 mg PO BID 12/27/21 12/27/21 History Allergies Allergy/AdvReac Type Severity Reaction Status Date / Time No Known Allergies Allergy Verified 12/27/21 16:09 Physical Exam Vitals: Vital Signs Temp Pulse Pulse Resp BP BP Pulse Ox 12/28/21 08:00 97.7 F 75 19 107/71 95 12/28/21 06:27 96/65 12/28/21 03:42 97.7 F 76 18 91/55 96 12/28/21 00:00 73 16 101/65 96 12/27/21 20:00 97.4 F L 70 18 116/73 96 12/27/21 18:11 98.0 F 85 18 130/80 97 12/27/21 17:43 71 16 105/78 97 12/27/21 16:02 71 18 108/70 98 12/27/21 14:40 118 H 21 97/77 96 12/27/21 14:22 97.1 F L 144 H 18 115/74 97 Intake and Output 12/27/21 12/28/21 12/28/21 22:59 06:59 14:59 Intake Total 540 Balance 540 Intake: Oral 540 Other: Voiding Method Toilet Toilet # Voids 1 1 4 Weight 95.708 kg Results 12/27/21 15:06 12/27/21 15:06 Cardiac Enzymes 12/27/21 12/27/21 12/27/21 Range/Units 15:06 15:06 18:12 AST 32 (17-59) U/L Troponin I <0.012 0.014 (0.000-0.034) ng/mL 12/27/21 Range/Units 20:54 AST (17-59) U/L Troponin I 0.014 (0.000-0.034) ng/mL Coagulation 12/27/21 Range/Units 15:06 PT 11.8 (9.0-12.0) sec APTT 28.7 (22.0-30.0) sec Lipids 12/28/21 Range/Units 05:38 Triglycerides 141.00 (0.00-149.00) mg/dL Cholesterol 171.00 (0.00-200.00) mg/dL HDL Cholesterol 37.60 L (40.00-60.00) mg/dL Cholesterol/HDL Ratio 4.55 Ratio CBC 12/27/21 Range/Units 15:06 WBC 8.9 (3.8-10.6) k/uL RBC 4.65 (4.30-5.90) m/uL Hgb 15.6 (13.0-17.5) gm/dL Hct 47.1 (39.0-53.0) % Plt Count 183 (150-450) k/uL Comprehensive Metabolic Panel 12/27/21 Range/Units 15:06 Sodium 141 (137-145) mmol/L Potassium 4.2 (3.5-5.1) mmol/L Chloride 109 H (98-107) mmol/L Carbon Dioxide 27 (22-30) mmol/L BUN 14 (9-20) mg/dL Creatinine 0.98 (0.66-1.25) mg/dL Glucose 144 H (74-99) mg/dL Calcium 8.8 (8.4-10.2) mg/dL AST 32 (17-59) U/L ALT 26 (4-49) U/L Alkaline Phosphatase 64 (38-126) U/L Total Protein 6.1 L (6.3-8.2) g/dL Albumin 3.8 (3.5-5.0) g/dL Current Medications Generic Name Dose Route Start Last Admin Trade Name Freq PRN Reason Stop Dose Admin Acetaminophen 1,000 mg 12/27/21 22:00 12/28/21 08:45 Acetaminophen Tab 500 Mg Tab PO 1,000 mg TID VY Administration Atorvastatin Calcium 20 mg 12/28/21 09:00 12/28/21 08:45 Atorvastatin 20 Mg Tab PO 20 mg DAILY VY Administration Metoprolol Succinate 50 mg 12/28/21 09:00 12/28/21 08:45 Metoprolol Succinate (Er) 50 Mg Tab.Er.24h PO 50 mg BID VY Administration Nitroglycerin 0.4 mg 12/27/21 16:50 Nitroglycerin Sl Tabs 0.4 Mg Tab SUBLINGUAL Q5M PRN Chest Pain Rivaroxaban 20 mg 12/27/21 21:00 12/27/21 20:12 Rivaroxaban 20 Mg Tab PO 20 mg HS VY Administration Protocol Tamsulosin HCl 0.4 mg 12/28/21 09:00 12/28/21 08:45 Tamsulosin 0.4 Mg Cap.Er.24h PO 0.4 mg DAILY VY Administration Intake and Output 12/27/21 12/28/21 12/28/21 22:59 06:59 14:59 Intake Total 540 Balance 540 Intake: Oral 540 Other: Voiding Method Toilet Toilet # Voids 1 1 4 Weight 95.708 kg 12/27/21 15:06 12/27/21 15:06
--- NOTE | 2021-12-28 17:23 | P.PN ---
Subjective History of Present Illness Chief Complaint: Dizziness This is a very pleasant 81-year-old male with history of atrial fibrillation currently on metoprolol and Xarelto is coming in for evaluation of dizziness. Patient states that he was in usual state of health this morning however this morning he started experiencing lightheadedness when walking around. This prompted him to sit down and check his pulse he notices that his heart is racing that his pulse is racing and he had some chest tightness. EMS was called and he was transferred to emergency department. He was found to have A. fib with RVR. Blood pressures were stable. He did not feel any chest pain or shortness of breath. He was given Cardizem and started on Cardizem drip and he now converted to normal sinus rhythm. Patient typically follows with Dr. Jefferson; last visit 2 weeks ago that time started on Lasix. He denies any fever or chills dysuria diarrhea and nausea vomiting otherwise. He is chronically on Xarelto. He currently experiencing no discomfort. Interval history: Patient was examined at the bedside. He denies any dizziness or lightheadedness. He ran out of A. fib. He is currently sinus rhythm Physical examination: General: non toxic, no distress, appears at stated age Derm: warm, dry Head: atraumatic, normocephalic, symmetric Eyes: EOMI, no lid lag, anicteric sclera Mouth: no lip lesion, mucus membranes moist Cardiovascular: S1S2 reg, no murmur, positive posterior tibial pulse bilateral, Lungs: CTA bilateral, no rhonchi, no rales , no accessory muscle use Abdominal: soft, nontender to palpation, no guarding, no appreciable organomegaly Ext: no gross muscle atrophy, no edema, no contractures Neuro: CN II-XI grossly intact, no focal neuro deficits Psych: Alert, oriented, appropriate affect Assessment and plan: Paroxysmal A. fib with rapid ventricular response -Normal sinus rhythm -Patient off Cardizem driplly seems to be converted to normal sinus rhythm -2-D echo pending -Cardiology increased Toprol-XL to 50 mg twice a day -Cardiology consultation -Cardiac telemetry -Normal TSH #BPH Continue Flomax #Hyperlipidemia Continue atorvastatin Full code is a surrogate decision-maker Objective - Vital Signs Vital signs: Vital Signs Temp 97.4 F L 12/28/21 15:30 Pulse 75 12/28/21 15:30 Resp 18 12/28/21 15:30 BP 112/72 12/28/21 15:30 Pulse Ox 96 12/28/21 15:30 Intake & Output 12/27/21 12/28/21 12/28/21 18:59 06:59 18:59 Intake Total 540 Balance 540 Weight 95.708 kg Intake: Oral 540 Other: Voiding Method Toilet Toilet # Voids 1 1 4 - Labs CBC & Chem 7: 12/27/21 15:06 12/27/21 15:06 Labs: Abnormal Lab Results - Last 24 Hours (Table) 12/28/21 Range/Units 05:38 HDL Cholesterol 37.60 L (40.00-60.00) mg/dL
[2021-12-28] MEDS: RIVAROXABAN 20 MG TAB PO SCH (20:35)
[2021-12-29] MEDS: ATORVASTATIN 20 MG TAB PO SCH (07:54)
[2021-12-29] MEDS: ACETAMINOPHEN TAB 500 MG TAB PO SCH ×3 (07:54→21:31)
[2021-12-29] MEDS: METOPROLOL SUCCINATE (ER) 50 MG TAB.ER.24H PO SCH ×2 (07:54→20:36)
[2021-12-29] MEDS: TAMSULOSIN 0.4 MG CAP.ER.24H PO SCH (07:55)
--- NOTE | 2021-12-29 09:54 | CA ---
Transthoracic Echo Report Name: Johnny Fine Age: 81 Gender: M : 1940 Exam Date: 12/28/2021 10:46 Exam Location: [facility] Ht (in): 71 Wt (lb): 211 Ordering Physician: Naz Bryant Attending/Referring Phys: [id number], Manny Extermination Inspector Keshia Vidal, JAS Procedure CPT: Indications: LV function Cardiac Hx: Technical Quality: Fair Contrast 1: Total Dose (mL): Contrast 2: Total Dose (mL): MEASUREMENTS (Male / Female) Normal Values 2D ECHO LV Diastolic Diameter PLAX 3.9 cm 4.2 - 5.9 / 3.9 - 5.3 cm LV Systolic Diameter PLAX 2.9 cm IVS Diastolic Thickness 1.4 cm 0.6 - 1.0 / 0.6 - 0.9 cm LVPW Diastolic Thickness 1.6 cm 0.6 - 1.0 / 0.6 - 0.9 cm LV Relative Wall Thickness 0.8 RV Internal Dim ED PLAX 3.5 cm LA Systolic Diameter LX 4.3 cm 3.0 - 4.0 / 2.7 - 3.8 cm M-MODE Aortic Root Diameter MM 4.2 cm LA Systolic Diameter MM 4.4 cm LA Ao Ratio MM 1.1 MV E Point Septal Separation 0.6 cm AV Cusp Separation MM 2.0 cm DOPPLER AV Peak Velocity 106.8 cm/s AV Peak Gradient 4.6 mmHg MV Area PHT 4.0 cm Mitral E Point Velocity 85.6 cm/s Mitral A Point Velocity 46.5 cm/s Mitral E to A Ratio 1.8 MV Deceleration Time 190.5 ms MV E' Velocity 10.2 cm/s Mitral E to MV E' Ratio 8.4 TR Peak Velocity 221.6 cm/s TR Peak Gradient 19.6 mmHg Right Ventricular Systolic Press 24.4 mmHg FINDINGS Left Ventricle Left ventricular ejection fraction is estimated at 50-55 %. Moderately increased left ventricular wall thickness. Right Ventricle Right ventricular dilatation. Right Atrium The right atrium is normal in size. Left Atrium Mildly increased left atrial diameter. Mitral Valve Mild mitral annular calcification. Aortic Valve Trace to mild aortic regurgitation. Tricuspid Valve Mild tricuspid regurgitation. Pulmonic Valve Trace to mild pulmonic regurgitation. Pericardium No pericardial or pleural effusion. Aorta Moderate aortic dilatation at the level of the sinotubular junction. CONCLUSIONS #1. Moderate concentric left ventricle hypertrophy. Normal LV function with ejection fraction of about 50-55%. #2. Mild left atrial enlargement. #3. Mitral annular calcification #4. Mild pulmonic regurgitation. #4. Mild to moderate aortic root dilatation measuring 4.2 cm #5. No pericardial effusion Previewed by: Dr. William Brooks MD (Electronically Signed) Final Date: 29 December 2021 09:53
[2021-12-29] MEDS: DRONEDARONE 400 MG TAB PO SCH ×2 (10:43→17:17)
--- NOTE | 2021-12-29 11:35 | P.PN ---
Subjective History of Present Illness Chief Complaint: Dizziness This is a very pleasant 81-year-old male with history of atrial fibrillation currently on metoprolol and Xarelto is coming in for evaluation of dizziness. Patient states that he was in usual state of health this morning however this morning he started experiencing lightheadedness when walking around. This prompted him to sit down and check his pulse he notices that his heart is racing that his pulse is racing and he had some chest tightness. EMS was called and he was transferred to emergency department. He was found to have A. fib with RVR. Blood pressures were stable. He did not feel any chest pain or shortness of breath. He was given Cardizem and started on Cardizem drip and he now converted to normal sinus rhythm. Patient typically follows with Dr. Jefferson; last visit 2 weeks ago that time started on Lasix. He denies any fever or chills dysuria diarrhea and nausea vomiting otherwise. He is chronically on Xarelto. He currently experiencing no discomfort. Interval history: Patient was examined at the bedside. Patient went back to A. fib with RVR heart rate is 130 this morning. He denies any chest pain Physical examination: General: non toxic, no distress, appears at stated age Derm: warm, dry Head: atraumatic, normocephalic, symmetric Eyes: EOMI, no lid lag, anicteric sclera Mouth: no lip lesion, mucus membranes moist Cardiovascular: S1S2 reg, no murmur, positive posterior tibial pulse bilateral, Lungs: CTA bilateral, no rhonchi, no rales , no accessory muscle use Abdominal: soft, nontender to palpation, no guarding, no appreciable organomegaly Ext: no gross muscle atrophy, no edema, no contractures Neuro: CN II-XI grossly intact, no focal neuro deficits Psych: Alert, oriented, appropriate affect Assessment and plan: Paroxysmal A. fib with rapid ventricular response -Right still not controlled -Patient off Cardizem driplly seems to be converted to normal sinus rhythm -2-D echo pending -Cardiology increased Toprol-XL to 50 mg twice a day -Cardiology consultation -Cardiac telemetry -Normal TSH #BPH Continue Flomax #Hyperlipidemia Continue atorvastatin Full code is a surrogate decision-maker Objective - Vital Signs Vital signs: Vital Signs Temp 97.6 F 12/29/21 08:00 Pulse 110 H 12/29/21 08:00 Resp 18 12/29/21 08:00 BP 138/108 12/29/21 08:00 Pulse Ox 99 12/29/21 08:00 Intake & Output 12/28/21 12/29/21 12/29/21 18:59 06:59 18:59 Intake Total 540 Balance 540 Intake: Oral 540 Other: Voiding Method Toilet Toilet Toilet # Voids 4 5 3 # Bowel Movements 0 - Labs CBC & Chem 7: 12/27/21 15:06 12/27/21 15:06
--- NOTE | 2021-12-29 13:08 | P.PN ---
Subjective Progress Note Date: 12/29/21 HISTORY OF PRESENT ILLNESS: This is a 81-year-old male with a past medical history significant for paroxysmal atrial fibrillation with previous ablation, cardiomyopathy, hypertension, and hyperlipidemia. Patient follows in the office with Dr. Jefferson. We have been asked to see the patient in consultation for afib with RVR. Patient examined at the bedside. Patient presented to the hospital a chief complaint of palpitations and shortness of breath. Patient was found to be in A. fib with RVR. Patient was started on a Cardizem drip. Patient remains in atrial fibrillation this morning with controlled ventricular rate. * EKG reveals A. fib with RVR * Chest xray suggestion of mild plate atelectasis left diaphragm. Hyperinflation and flattening of the diaphragms compatible COPD. * Laboratory data: WBC 8.9. Hemoglobin 15.6. Platelet count 183. Sodium 141. Potassium 4.2. BUN 14. Creatinine 0.98. Troponin negative 3. TSH 1.30. * Current home cardiac medications include Lipitor 20 alert times daily, Lasix 20 mg daily, metoprolol succinate 25 mg twice a day, and Xarelto 20 mg at night * Most recent echocardiogram obtained in January 2021 revealed ejection fraction 50%, mild to moderate aortic regurgitation, mild MR, mild TR * Patient underwent Lexiscan stress test in February 2021 revealing inferior wall fixed defect with normal contractility consistent with diaphragmatic attenuation. There is no stress-induced ischemia. 12/29/2021 Patient examined this morning at the bedside. Patient denies chest pain or pressure. Denies SOB. Telemetry reveals atrial flutter with controlled ventricular rates. Echo completed revealing preserved LV function. PHYSICAL EXAM: VITAL SIGNS: Reviewed. GENERAL: Well-developed in no acute distress. HEENT: Head is normocephalic. Pupils are equal, round. Sclerae anicteric. Mucous membranes of the mouth are moist. Neck supple. No JVD or thyromegaly LUNGS: Respirations even and unlabored. Lungs essentially clear to auscultation bilaterally. HEART: Irregular rate and rhythm. S1 and S2 heard. ABDOMEN: Soft. Nondistended. Nontender. EXTREMITIES: Normal range of motion. No clubbing or cyanosis. Peripheral pulses intact. No lower extremity edema NEUROLOGIC: Awake and alert. Oriented x 3. ASSESSMENT: Palpitations New onset atypical atrial flutter Paroxysmal atrial fibrillation History of A. fib ablation History of cardiomyopathy with subsequent improvement in EF Hypertension Hyperlipidemia PLAN: Continue current cardiac medications Add Multaq 400mg BID Continue telemetry monitoring Further recommendations pending patient course Nurse practitioner note has been reviewed by physician. Signing provider agrees with the documented findings, assessment, and plan of care. Objective - Vital Signs Vital signs: Vital Signs Temp 97.6 F 12/29/21 08:00 Pulse 110 H 12/29/21 08:00 Resp 18 12/29/21 08:00 BP 138/108 12/29/21 08:00 Pulse Ox 99 12/29/21 08:00 Intake & Output 12/28/21 12/29/21 12/29/21 18:59 06:59 18:59 Intake Total 540 Balance 540 Intake: Oral 540 Other: Voiding Method Toilet Toilet Toilet # Voids 4 5 3 # Bowel Movements 0 - Labs CBC & Chem 7: 12/27/21 15:06 12/27/21 15:06
[2021-12-29] MEDS: RIVAROXABAN 20 MG TAB PO SCH (20:36)
[2021-12-30 04:53] VITALS: RESP 18
[2021-12-30] MEDS: DRONEDARONE 400 MG TAB PO SCH (06:40)
[2021-12-30] MEDS: METOPROLOL SUCCINATE (ER) 50 MG TAB.ER.24H PO SCH (08:36)
[2021-12-30] MEDS: TAMSULOSIN 0.4 MG CAP.ER.24H PO SCH (08:36)
[2021-12-30] MEDS: ACETAMINOPHEN TAB 500 MG TAB PO SCH (08:36)
[2021-12-30] MEDS: ATORVASTATIN 20 MG TAB PO SCH (08:36)
[2021-12-30] MEDS ORDERED: FUROSEMIDE 20 MG TAB PO SCH (09:00)
[2021-12-30 11:50] VITALS: BP 105/71; PULSE 71; TEMP 97.5
--- NOTE | 2021-12-30 12:21 | P.DS ---
Providers Date of admission: 12/27/21 16:50 Expected date of discharge: 12/30/21 Attending physician: Claudia Resendiz DO Consults: 12/27/21 16:50 Consult Physician Urgent Consulting Provider: [facility] Consult Reason/Comments: Atrial flutter with rapid ventricular response Do you want consulting provider notified?: Yes 12/27/21 18:27 Consult Physician Routine Consulting Provider: Praveena Jefferson Consult Reason/Comments: A fib w rvr Do you want consulting provider notified?: Yes Primary care physician: Enrico Lester MD Hospital Course: History of Present Illness Chief Complaint: Dizziness This is a very pleasant 81-year-old male with history of atrial fibrillation currently on metoprolol and Xarelto is coming in for evaluation of dizziness. Patient states that he was in usual state of health this morning however this morning he started experiencing lightheadedness when walking around. This prompted him to sit down and check his pulse he notices that his heart is racing that his pulse is racing and he had some chest tightness. EMS was called and he was transferred to emergency department. He was found to have A. fib with RVR. Blood pressures were stable. He did not feel any chest pain or shortness of breath. He was given Cardizem and started on Cardizem drip and he now converted to normal sinus rhythm. Patient typically follows with Dr. Jefferson; last visit 2 weeks ago that time started on Lasix. He denies any fever or chills dysuria diarrhea and nausea vomiting otherwise. He is chronically on Xarelto. He currently experiencing no discomfort. Hospital presented to the problem list: Paroxysmal A. fib with rapid ventricular response -Controlled rate -Patient off Cardizem driplly seems to be converted to normal sinus rhythm -2-D echo showed EF 50-55% -Cardiology added multaq -Resume Toprol XL 30 October -Cardiology consultation -Cardiac telemetry -Normal TSH -Resume Xarelto from the coagulation -Cardiology cleared the patient for discharge #BPH Continue Flomax #Hyperlipidemia Continue atorvastatin Physical examination: General: non toxic, no distress, appears at stated age Derm: warm, dry Head: atraumatic, normocephalic, symmetric Eyes: EOMI, no lid lag, anicteric sclera Mouth: no lip lesion, mucus membranes moist Cardiovascular: S1S2 reg, no murmur, positive posterior tibial pulse bilateral, Lungs: CTA bilateral, no rhonchi, no rales , no accessory muscle use Abdominal: soft, nontender to palpation, no guarding, no appreciable organomegaly Ext: no gross muscle atrophy, no edema, no contractures Neuro: CN II-XI grossly intact, no focal neuro deficits Psych: Alert, oriented, appropriate affect Patient Condition at Discharge: Stable Plan - Discharge Summary Discharge Rx Participant: No New Discharge Prescriptions: New Dronedarone [Multaq] 400 mg PO AC-BID #60 tab Continue Acetaminophen Tab [Tylenol] 1,000 mg PO TID Tamsulosin [Flomax] 0.4 mg PO DAILY Atorvastatin [Lipitor] 20 mg PO DAILY Rivaroxaban [Xarelto] 20 mg PO HS Metoprolol Succinate [Toprol XL] 25 mg PO BID Furosemide [Lasix] 20 mg PO DAILY Discharge Medication List Acetaminophen Tab [Tylenol] 1,000 mg PO TID 11/18/19 [History] Tamsulosin [Flomax] 0.4 mg PO DAILY 12/03/20 [History] Atorvastatin [Lipitor] 20 mg PO DAILY 01/10/21 [History] Rivaroxaban [Xarelto] 20 mg PO HS 05/30/21 [History] Furosemide [Lasix] 20 mg PO DAILY 12/27/21 [History] Metoprolol Succinate [Toprol XL] 25 mg PO BID 12/27/21 [History] Dronedarone [Multaq] 400 mg PO AC-BID #60 tab 12/29/21 [Rx] Follow up Appointment(s)/Referral(s): Enrico Lester MD [Primary Care Provider] - 1-2 days Discharge Disposition: HOME SELF-CARE
--- NOTE | 2021-12-30 12:59 | P.PN ---
Subjective Progress Note Date: 12/30/21 HISTORY OF PRESENT ILLNESS: This is a 81-year-old male with a past medical history significant for paroxysmal atrial fibrillation with previous ablation, cardiomyopathy, hypertension, and hyperlipidemia. Patient follows in the office with Dr. Jefferson. We have been asked to see the patient in consultation for afib with RVR. Patient examined at the bedside. Patient presented to the hospital a chief complaint of palpitations and shortness of breath. Patient was found to be in A. fib with RVR. Patient was started on a Cardizem drip. Patient remains in atrial fibrillation this morning with controlled ventricular rate. * EKG reveals A. fib with RVR * Chest xray suggestion of mild plate atelectasis left diaphragm. Hyperinflation and flattening of the diaphragms compatible COPD. * Laboratory data: WBC 8.9. Hemoglobin 15.6. Platelet count 183. Sodium 141. Potassium 4.2. BUN 14. Creatinine 0.98. Troponin negative 3. TSH 1.30. * Current home cardiac medications include Lipitor 20 alert times daily, Lasix 20 mg daily, metoprolol succinate 25 mg twice a day, and Xarelto 20 mg at night * Most recent echocardiogram obtained in January 2021 revealed ejection fraction 50%, mild to moderate aortic regurgitation, mild MR, mild TR * Patient underwent Lexiscan stress test in February 2021 revealing inferior wall fixed defect with normal contractility consistent with diaphragmatic attenuation. There is no stress-induced ischemia. 12/29/2021 Patient examined this morning at the bedside. Patient denies chest pain or pressure. Denies SOB. Telemetry reveals atrial flutter with controlled ventricular rates. Echo completed revealing preserved LV function. 12/30/2021 Patient examined this morning at bedside. Patient denies chest pain or pressure. He denies shortness of breath. Telemetry reveals atrial fibrillation with controlled ventricular rates. PHYSICAL EXAM: VITAL SIGNS: Reviewed. GENERAL: Well-developed in no acute distress. HEENT: Head is normocephalic. Pupils are equal, round. Sclerae anicteric. Mucous membranes of the mouth are moist. Neck supple. No JVD or thyromegaly LUNGS: Respirations even and unlabored. Lungs essentially clear to auscultation bilaterally. HEART: Irregular rate and rhythm. S1 and S2 heard. ABDOMEN: Soft. Nondistended. Nontender. EXTREMITIES: Normal range of motion. No clubbing or cyanosis. Peripheral pulses intact. No lower extremity edema NEUROLOGIC: Awake and alert. Oriented x 3. ASSESSMENT: Palpitations New onset atypical atrial flutter Paroxysmal atrial fibrillation History of A. fib ablation History of cardiomyopathy with subsequent improvement in EF Hypertension Hyperlipidemia PLAN: Continue current cardiac medications Patient may be discharged home today from a cardiac standpoint Patient will require cardioversion in approximately one week. He will also likely require repeat ablation in the future. Patient to follow up outpatient with Dr. Jefferson Further recommendations pending patient course Nurse practitioner note has been reviewed by physician. Signing provider agrees with the documented findings, assessment, and plan of care. Objective - Vital Signs Vital signs: Vital Signs Temp 97.5 F L 12/30/21 11:49 Pulse 71 12/30/21 11:49 Resp 18 12/30/21 11:49 BP 105/71 12/30/21 11:49 Pulse Ox 97 12/30/21 11:49 Intake & Output 12/29/21 12/30/21 12/30/21 18:59 06:59 18:59 Other: Voiding Method Toilet Toilet Toilet # Voids 3 1 - Labs CBC & Chem 7: 12/27/21 15:06 12/27/21 15:06
[2021-12-30] MEDS ORDERED: METOPROLOL SUCCINATE (ER) 25 MG TAB.ER.24H PO SCH (21:00)
== END 2021-12-30 14:19 | disposition home or self-care (01) | DRG 310 ==
LOC: EC 14:19 → 3SCARD 16:50
PROVIDERS: ADMIT Internal Medicine; ATTEND Internal Medicine
DX: I48.0 Paroxysmal atrial fibrillation (principal); I48.4 Atypical atrial flutter; E78.5 Hyperlipidemia, unspecified; I10 Essential (primary) hypertension; J44.9 Chronic obstructive pulmonary disease, unspecified; E66.9 Obesity, unspecified; I08.3 Combined rheumatic disorders of mitral, aortic and tricuspid valves; N40.0 Benign prostatic hyperplasia without lower urinary tract symptoms; K21.9 Gastro-esophageal reflux disease without esophagitis; Z96.652 Presence of left artificial knee joint; Z96.641 Presence of right artificial hip joint; Z68.29 Body mass index [BMI] 29.0-29.9, adult; Z28.310 Unvaccinated for COVID-19; Z79.01 Long term (current) use of anticoagulants; Z79.899 Other long term (current) drug therapy; Z79.1 Long term (current) use of non-steroidal anti-inflammatories (NSAID); Z85.51 Personal history of malignant neoplasm of bladder; Z85.828 Personal history of other malignant neoplasm of skin; Z87.891 Personal history of nicotine dependence; Z86.79 Personal history of other diseases of the circulatory system; Z98.890 Other specified postprocedural states; Z98.49 Cataract extraction status, unspecified eye; Z86.010 Personal history of colon polyps; Z85.54 Personal history of malignant neoplasm of ureter; Z90.89 Acquired absence of other organs; Z80.42 Family history of malignant neoplasm of prostate; Z82.5 Family history of asthma and other chronic lower respiratory diseases
CPT/HCPCS: 36415; 71046; 80053; 80061; 83735; 84443; 84484; 85025; 85610; 85730; 93005; 93306; 96365; 96366; 96375; 99291

== ENCOUNTER → 2022-01-05 | Day surgery (SDC) | payer MEDICARE, BC ==
[2022-01-03 10:14] VITALS: BMI 39.3
[~2022-01-05] MED LIST changes: +LIDOCAINE 1% (10MG/ML) FOR IV START INTRADERMA PRN
[2022-01-05 06:25] VITALS: BP 145/84; PULSE 67; RESP 18; TEMP 98.3
== END ==
LOC: CATHCVL 05:58
PROVIDERS: ATTEND Internal Medicine Interventional Cardiology
DX: I48.19 Other persistent atrial fibrillation (principal); Z53.8 Procedure and treatment not carried out for other reasons; Z20.822 Contact with and (suspected) exposure to COVID-19
CPT/HCPCS: 87635

== ENCOUNTER → 2022-08-09 | Outpatient (CLI) | payer MEDICARE, BC ==
--- NOTE | 2022-08-09 15:01 | XR ---
EXAMINATION TYPE: XR chest 2V DATE OF EXAM: 08/09/2022 COMPARISON: 12/27/2021 HISTORY: Shortness of breath TECHNIQUE: Frontal and lateral views of the chest are obtained. FINDINGS: Scattered senescent parenchymal changes noted. Hyperinflation compatible with COPD. No evidence for infiltrate. No evidence for atelectasis. Heart size is stable. Mediastinal structures are stable and grossly unremarkable. No evidence for hilar prominence. Degenerative changes dorsal spine. IMPRESSION: 1. No evidence for acute pulmonary disease.
--- NOTE | 2022-08-10 07:54 | US ---
EXAMINATION TYPE: US kidneys/renal and bladder DATE OF EXAM: 08/09/2022 COMPARISON: 12/02/2015 CLINICAL HISTORY: 82-year-old male R94.4 ABNORMAL RESULTS OF KIDNEY FUNCTION STUDIES. TECHNIQUE: Multiple sonographic images of the kidneys and bladder are obtained. FINDINGS: EXAM MEASUREMENTS: Right Kidney: 12.6 x4.6 x 4.5 cm Left Kidney: 13.1 x 5.4 x 4.2 cm Right Kidney: No hydronephrosis or masses seen Left Kidney: No hydronephrosis. A couple lower pole cysts are present, largest measures 3.4 x 3.5 x 2 .6 cm. Bladder: Poorly distended limiting its evaluation. Bilateral Jets seen: No IMPRESSION: 1. No hydronephrosis. 2. A couple benign lower pole cysts on the left measuring up to 3.4 cm versus 2.9 cm, previously.
== END | disposition home or self-care (01) ==
LOC: RADUSWWP 14:06
PROVIDERS: ATTEND Family Medicine
DX: N28.1 Cyst of kidney, acquired (principal); J44.9 Chronic obstructive pulmonary disease, unspecified; R94.4 Abnormal results of kidney function studies
CPT/HCPCS: 71046; 76770

== ENCOUNTER 2022-11-26 12:03 | Emergency (ER) | payer MEDICARE, BC ==
[2022-11-26 12:16] VITALS: RESP 18; TEMP 97.9
--- NOTE | 2022-11-26 12:52 | XR ---
EXAMINATION TYPE: XR KUB DATE OF EXAM: 11/26/2022 Comparison: Correlation CT chest 11/10/2022 Clinical History: 82 year-old male no bowel movement x 4 days Findings: Lung bases are clear. There is hyperinflation. Rounded retrocardiac density noted. No evidence for free intraperitoneal air. No dilated small bowel or differential air-fluid levels seen. There is scattered mild stool. Moderate distending the rectum up to 7.3 cm wide. Left-sided pelvic ph leboliths. Surgical clips right side of the pelvis. Previous right total vertebroplasty, partially vi sualized. Impression: 1. COPD. Rounded retrocardiac density compatible with underlying moderate sized hiatal hernia. 2. Overall nonobstructive bowel gas pattern. No evidence for free air. 3. There is mild overall stool burden but with moderate distention of the rectum with stool up to 7.3 cm wide.
--- NOTE | 2022-11-26 12:52 | ED ---
General Adult HPI - General Chief complaint: Abdominal Pain Stated complaint: male pain Time Seen by Provider: 11/26/22 12:17 Source: patient, RN notes reviewed, old records reviewed Mode of arrival: ambulatory Limitations: no limitations - History of Present Illness Initial comments: 82-year-old male presenting for evaluation of constipation, no stool output for the past 4 days and very minimal stool output prior to this. He denies abdominal pain. Denies vomiting. Denies fever. He does not remember when his last colonoscopy was. - Related Data Home Medications Medication Instructions Recorded Confirmed Acetaminophen Tab [Tylenol] 1,000 mg PO BID 11/18/19 11/26/22 Tamsulosin [Flomax] 0.4 mg PO DAILY 12/03/20 11/26/22 Atorvastatin [Lipitor] 20 mg PO HS 01/10/21 11/26/22 Rivaroxaban [Xarelto] 20 mg PO HS 05/30/21 11/26/22 Furosemide [Lasix] 20 mg PO DAILY 12/27/21 11/26/22 Cholecalciferol [Vitamin D3 (25 25 mcg PO DAILY 10/26/22 11/26/22 Mcg = 1000 Iu)] Fluticasone Nasal [place] [Flonase 2 sprays EA NOSTRIL DAILY PRN 10/26/22 11/26/22 Nasal [place]] Omeprazole [PriLOSEC] 20 mg PO DAILY 10/26/22 11/26/22 Pantoprazole [Protonix] 40 mg PO DAILY 11/26/22 11/26/22 Previous Rx's Medication Instructions Recorded Amiodarone [Cordarone] 100 mg PO DAILY #30 tab 10/28/22 Docusate [Colace] 100 mg PO BID #60 capsule 11/26/22 Allergies Allergy/AdvReac Type Severity Reaction Status Date / Time No Known Allergies Allergy Verified 11/26/22 13:15 Review of Systems ROS Statement: Those systems with pertinent positive or pertinent negative responses have been documented in the HPI. ROS Other: All systems not noted in ROS Statement are negative. Past Medical History Past Medical History: Atrial Fibrillation, COPD, GERD/Reflux Additional Past Medical History / Comment(s): Cancer R ureter, hx. of hydronephrosis, bladder ca, skin cancer. States no HTN-takes rx for thickened wa ll of herart., enlarged prostate. GERD. History of Any Multi-Drug Resistant Organisms: None Reported Past Surgical History: Ablation, Back Surgery, Joint Replacement, Tonsillectomy Additional Past Surgical History / Comment(s): Distal R ureterectomy with ureteral reimplant., removal of skin cancer from rt shoulder/R bicep, colonoscopy, total Right Hip, L knee replacement, Cataracts, cardioversion. Past Anesthesia/Blood Transfusion Reactions: No Reported Reaction Past Psychological History: No Psychological Hx Reported Smoking Status: Former smoker Past Alcohol Use History: Rare Past Drug Use History: None Reported - Past Family History Mother Family Medical History: COPD Additional Family Medical History / Comment(s): Mother at age 77 from Emphysema. Father Family Medical History: Cancer Additional Family Medical History / Comment(s): Father of complications with his prostate cancer at the age of 65 yrs. General Exam Limitations: no limitations General appearance: alert, in no apparent distress Head exam: Present: atraumatic, normocephalic Eye exam: Present: normal appearance, PERRL ENT exam: Present: mucous membranes moist Neck exam: Present: normal inspection. Absent: tenderness, meningismus Respiratory exam: Present: normal lung sounds bilaterally. Absent: respiratory distress, wheezes Cardiovascular Exam: Present: regular rate, normal rhythm GI/Abdominal exam: Present: soft, distended. Absent: tenderness, guarding, rebound, rigid Extremities exam: Present: normal inspection Back exam: Present: normal inspection Neurological exam: Present: alert, oriented X3, CN II-XII intact, normal gait. Absent: motor sensory deficit Psychiatric exam: Present: normal affect, normal mood Skin exam: Present: warm, dry, intact. Absent: cyanosis, diaphoretic Course Vital Signs 11/26/22 12:12 Temperature 97.9 F Pulse Rate 87 Respiratory 18 Rate Blood Pressure 128/77 O2 Sat by Pulse 97 Oximetry Medical Decision Making - Medical Decision Making Was pt. sent in by a medical professional or institution (, PA, THREAD DRESSER, urgent care, hospital, or fci...) When possible be specific @ -No Did you speak to anyone other than the patient for history (EMS, parent, family, police, friend...)? What history was obtained from this source @ -No Did you review nursing and triage notes (agree or disagree)? Why? @ -I reviewed and agree with nursing and triage notes Were old charts reviewed (outside hosp., previous admission, EMS record, old EKG, old radiological studies, urgent care reports/EKG's, fci records)? Report findings @ -No old charts were reviewed Differential Diagnosis (chest pain, altered mental status, abdominal pain women, abdominal pain men, vaginal bleeding, weakness, fever, dyspnea, syncope, headache, dizziness, GI bleed, back pain, seizure, CVA, palpatations, mental health, musculoskeletal)? @ -Differential Abdominal Pain Men: Appendicitis, cholecystitis, diverticulosis, ischemic bowel, pancreatitis, hepatitis, UTI, gastroenteritis, AAA, incarcerated hernia, bowel obstruction, constipation, inflammatory bowel, hepatitis, peptic ulcer disease, splenic infarction, perforated viscus, testicular torsion, this is not meant to be an all-inclusive list EKG interpreted by me (3pts min.). @ -As above X-rays interpreted by me (1pt min.). @ -Abdominal ultrasound reviewed, showing large stool burden in the rectum CT interpreted by me (1pt min.). @ -None done U/S interpreted by me (1pt. min.). @ -None done What testing was considered but not performed or refused? (CT, X-rays, U/S, labs)? Why? @ -None What meds were considered but not given or refused? Why? @ -None Did you discuss the management of the patient with other professionals (professionals i.e. , PA, THREAD DRESSER, lab, RT, psych nurse, social work faculty member, cathead operator, teacher, code enforcement officer, manager case)? Give summary @ -No Was smoking cessation discussed for >3mins.? @ -No Was critical care preformed (if so, how long)? @ -No Were there social determinants of health that impacted care today? How? (Homelessness, low income, unemployed, alcoholism, drug addiction, transportation, low edu. Level, literacy, decrease access to med. care, long-term, rehab)? @ -No Was there de-escalation of care discussed even if they declined (Discuss DNR or withdrawal of care, Hospice)? DNR status @ -No What co-morbidities impacted this encounter? (DM, HTN, Smoking, COPD, CAD, Cancer, CVA, ARF, Chemo, Hep., AIDS, mental health diagnosis, sleep apnea, morbid obesity)? @ -None Was patient admitted / discharged? Hospital course, mention meds given and route, prescriptions, significant lab abnormalities, going to OR and other pertinent info. @ -82-year-old male with history suggestive of constipation. X-ray does show a stool burden in the colon and rectum. This is able to be evacuated with enema in the emergency department. Patient feels a heart percent better. He is prescribed stool softener will follow with his primary care physician and may require colonoscopy. Undiagnosed new problem with uncertain prognosis? @ -No Drug Therapy requiring intensive monitoring for toxicity (Heparin, Nitro, Insulin, Cardizem)? @ -No Were any procedures done? @ -No Diagnosis/symptom? @ -Constipation Acute, or Chronic, or Acute on Chronic? @ -default Uncomplicated (without systemic symptoms) or Complicated (systemic symptoms)? @ -default Side effects of treatment? @ -No Exacerbation, Progression, or Severe Exacerbation? @ -No Poses a threat to life or bodily function? How? (Chest pain, USA, [place], pneumonia, PE, COPD, DKA, ARF, appy, cholecystitis, CVA, Diverticulitis, Homicidal, Suicidal, threat to staff... and all critical care pts) @ -No Disposition Clinical Impression: Constipation Disposition: HOME SELF-CARE Condition: Good Instructions (If sedation given, give patient instructions): Constipation (ED) Prescriptions: Docusate [Colace] 100 mg PO BID #60 capsule Is patient prescribed a controlled substance at d/c from ED?: No Referrals: Sowmya Bethea MD [Primary Care Provider] - 1-2 days Time of Disposition: 14:03
[2022-11-26 14:09] VITALS: BP 130/76; PULSE 90
== END 2022-11-26 14:24 | disposition home or self-care (01) ==
LOC: EC 12:03
DX: K59.00 Constipation, unspecified (principal); I48.91 Unspecified atrial fibrillation; J44.9 Chronic obstructive pulmonary disease, unspecified; K21.9 Gastro-esophageal reflux disease without esophagitis; Z79.899 Other long term (current) drug therapy; Z87.891 Personal history of nicotine dependence
CPT/HCPCS: 74018; 99284

== ENCOUNTER 2023-04-09 09:26 | Emergency (ER) | payer MEDICARE, BC ==
[2023-04-09 09:46] VITALS: TEMP 99
--- NOTE | 2023-04-09 10:25 | ED ---
General Adult HPI - General Chief complaint: Shortness of Breath Stated complaint: cough, sob Time Seen by Provider: 04/09/23 09:47 Source: patient, RN notes reviewed Mode of arrival: ambulatory Limitations: no limitations - History of Present Illness Initial comments: This is an 83-year-old male presents emergency Department chief complaint of shortness of breath. Patient states she's having worsening productive cough, shortness of breath. Patient states he has been told by his dye stand loader Dr. Jefferson that he has underlying asthma, COPD. He states his cough is productive with sputum is yellow in nature. Patient denies any reported fever he states generalized does not feel well he has complained of mild chest discomfort. Patient has no abdominal pain no leg swelling no history of CHF. - Related Data Home Medications Medication Instructions Recorded Confirmed Acetaminophen Tab [Tylenol] 1,000 mg PO BID 11/18/19 11/26/22 Tamsulosin [Flomax] 0.4 mg PO DAILY 12/03/20 11/26/22 Atorvastatin [Lipitor] 20 mg PO HS 01/10/21 11/26/22 Rivaroxaban [Xarelto] 20 mg PO HS 05/30/21 11/26/22 Furosemide [Lasix] 20 mg PO DAILY 12/27/21 11/26/22 Cholecalciferol [Vitamin D3 (25 25 mcg PO DAILY 10/26/22 11/26/22 Mcg = 1000 Iu)] Fluticasone Nasal [place] [Flonase 2 sprays EA NOSTRIL DAILY PRN 10/26/22 11/26/22 Nasal [place]] Omeprazole [PriLOSEC] 20 mg PO DAILY 10/26/22 11/26/22 Pantoprazole [Protonix] 40 mg PO DAILY 11/26/22 11/26/22 Previous Rx's Medication Instructions Recorded Amiodarone [Cordarone] 100 mg PO DAILY #30 tab 10/28/22 Docusate [Colace] 100 mg PO BID #60 capsule 11/26/22 Doxycycline [Vibramycin] 100 mg PO BID #20 capsule 04/09/23 Allergies Allergy/AdvReac Type Severity Reaction Status Date / Time No Known Allergies Allergy Verified 04/09/23 09:45 Review of Systems ROS Statement: Those systems with pertinent positive or pertinent negative responses have been documented in the HPI. ROS Other: All systems not noted in ROS Statement are negative. Past Medical History Past Medical History: Atrial Fibrillation, COPD, GERD/Reflux Additional Past Medical History / Comment(s): Cancer R ureter, hx. of hydronephrosis, bladder ca, skin cancer. States no HTN-takes rx for thickened wall of herart., enlarged prostate. GERD. History of Any Multi-Drug Resistant Organisms: None Reported Past Surgical History: Ablation, Back Surgery, Joint Replacement, Tonsillectomy Additional Past Surgical History / Comment(s): Distal R ureterectomy with ureteral reimplant., removal of skin cancer from rt shoulder/R bicep, colonoscopy, total Right Hip, L knee replacement, Cataracts, cardioversion. Past Anesthesia/Blood Transfusion Reactions: No Reported Reaction Past Psychological History: No Psychological Hx Reported Smoking Status: Former smoker Past Alcohol Use History: Rare Past Drug Use History: None Reported - Past Family History Mother Family Medical History: COPD Additional Family Medical History / Comment(s): Mother at age 77 from Emphysema. Father Family Medical History: Cancer Additional Family Medical History / Comment(s): Father of complications with his prostate cancer at the age of 65 yrs. General Exam Limitations: no limitations General appearance: alert, in no apparent distress Head exam: Present: atraumatic, normocephalic, normal inspection Eye exam: Present: normal appearance, PERRL, EOMI. Absent: scleral icterus, conjunctival injection, periorbital swelling ENT exam: Present: normal exam, mucous membranes moist Neck exam: Present: normal inspection, full ROM. Absent: tenderness, meningismus, lymphadenopathy Respiratory exam: Present: decreased breath sounds. Absent: normal lung sounds bilaterally, respiratory distress, wheezes, rales, rhonchi, stridor Cardiovascular Exam: Present: regular rate, normal rhythm, normal heart sounds. Absent: systolic murmur, diastolic murmur, rubs, gallop, clicks GI/Abdominal exam: Present: soft, normal bowel sounds. Absent: distended, tenderness, guarding, rebound, rigid Course Vital Signs 04/09/23 04/09/23 04/09/23 09:42 10:32 10:37 Temperature 99.0 F Pulse Rate 91 76 Respiratory 18 16 16 Rate Blood Pressure 126/75 132/73 O2 Sat by Pulse 96 96 Oximetry 04/09/23 12:24 Temperature Pulse Rate 72 Respiratory 18 Rate Blood Pressure 133/72 O2 Sat by Pulse 98 Oximetry EKG Findings - EKG Comments: EKG Findings:: EKG performed at 9:49 sinus rhythm with a right bundle rate of 86 NV 152 QRS 138 QT/QTC 380/424 - EKG Results: EKG: interpreted by CHRISTA Medical Decision Making - Medical Decision Making Was pt. sent in by a medical professional or institution (, GAGAN, RAM CAR OPERATOR, urgent care, hospital, or [facility]...) When possible be specific @ -No Did you speak to anyone other than the patient for history (EMS, parent, family, police, friend...)? What history was obtained from this source @ -No Did you review nursing and triage notes (agree or disagree)? Why? @ -I reviewed and agree with nursing and triage notes Were old charts reviewed (outside hosp., previous admission, EMS record, old EKG, old radiological studies, urgent care reports/EKG's, [facility] records)? Report findings @ -No old charts were reviewed Differential Diagnosis (chest pain, altered mental status, abdominal pain women, abdominal pain men, vaginal bleeding, weakness, fever, dyspnea, syncope, headache, dizziness, GI bleed, back pain, seizure, CVA, palpatations, mental health, musculoskeletal)? @ -nDifferential Dyspnea: Coronary syndrome, arrhythmia, tamponade, asthma, COPD, pulmonary embolism, pneumonia, pneumothorax, pulmonary effusion, anaphylaxis, diabetic ketoacidosis, flailed chest, pulmonary contusion, diaphragmatic rupture, anemia, neuromuscular, this is not meant to be an all-inclusive list. ble EKG interpreted by me (3pts min.). @ -As above X-rays interpreted by me (1pt min.). @ -None done CT interpreted by me (1pt min.). @ -Chest x-ray shows chronic changes no definite infiltrate done U/S interpreted by me (1pt. min.). @ -None done What testing was considered but not performed or refused? (CT, X-rays, U/S, labs)? Why? @ -None What meds were considered but not given or refused? Why? @ -None Did you discuss the management of the patient with other professionals (professionals i.e. GAGAN Nolasco, RAM CAR OPERATOR, lab, RT, psych nurse, social work case manager, tip inserter, teacher, penal officer, social work case manager)? Give summary @ -No Was smoking cessation discussed for >3mins.? @ -No Was critical care preformed (if so, how long)? @ -No Were there social determinants of health that impacted care today? How? (Homelessness, low income, unemployed, alcoholism, drug addiction, transportation, low edu. Level, literacy, decrease access to med. care, half-way, rehab)? @ -No Was there de-escalation of care discussed even if they declined (Discuss DNR or withdrawal of care, Hospice)? DNR status @ -No What co-morbidities impacted this encounter? (DM, HTN, Smoking, COPD, CAD, Cancer, CVA, ARF, Chemo, Hep., AIDS, mental health diagnosis, sleep apnea, morbid obesity)? @ -COPD Was patient admitted / discharged? Hospital course, mention meds given and route, prescriptions, significant lab abnormalities, going to OR and other per tinent info. @ -Discharge patient's vitals are stable patient does have significant productive cough without evidence of pneumonia. Patient has no hypoxia laboratory studies are unremarkable. Patient is discharged after IV antibiotics and oral antibiotics. Undiagnosed new problem with uncertain prognosis? @ -No Drug Therapy requiring intensive monitoring for toxicity (Heparin, Nitro, Insulin, Cardizem)? @ -No Were any procedures done? @ -No Diagnosis/symptom? @ -Tracheobronchitis Acute, or Chronic, or Acute on Chronic? @ -Acute Uncomplicated (without systemic symptoms) or Complicated (systemic symptoms)? @ - complicated Side effects of treatment? @ -No Exacerbation, Progression, or Severe Exacerbation? @ -No Poses a threat to life or bodily function? How? (Chest pain, [place], [place], pneumonia, PE, COPD, DKA, ARF, appy, cholecystitis, CVA, Diverticulitis, Homicidal, Suicidal, threat to staff... and all critical care pts) @ -No - Lab Data Result diagrams: 04/09/23 10:21 04/09/23 10:21 Lab Results 04/09/23 04/09/23 04/09/23 Range/Units 10:21 10:21 10:21 WBC 12.8 H (3.8-10.6) k/uL RBC 4.08 L (4.30-5.90) m/uL Hgb 13.9 (13.0-17.5) gm/dL Hct 40.5 (39.0-53.0) % MCV 99.4 (80.0-100.0) fL MCH 34.0 (25.0-35.0) pg MCHC 34.2 (31.0-37.0) g/dL RDW 12.8 (11.5-15.5) % Plt Count 144 L (150-450) k/uL MPV 9.5 Neutrophils % 82 % Lymphocytes % 8 % Monocytes % 6 % Eosinophils % 1 % Basophils % 0 % Neutrophils # 10.6 H (1.3-7.7) k/uL Lymphocytes # 1.1 (1.0-4.8) k/uL Monocytes # 0.8 (0-1.0) k/uL Eosinophils # 0.2 (0-0.7) k/uL Basophils # 0.0 (0-0.2) k/uL PT 11.4 (9.0-12.0) sec INR 1.1 (<1.2) APTT 29.4 (22.0-30.0) sec Sodium 139 (137-145) mmol/L Potassium 4.6 (3.5-5.1) mmol/L Chloride 108 H (98-107) mmol/L Carbon Dioxide 25 (22-30) mmol/L Anion Gap 6 mmol/L BUN 13 (9-20) mg/dL Creatinine 0.98 (0.66-1.25) mg/dL Est GFR (CKD-EPI)AfAm 82 (>60 ml/min/1.73 sqM) Est GFR (CKD-EPI)NonAf 71 (>60 ml/min/1.73 sqM) Glucose 99 (74-99) mg/dL Plasma Lactic Acid Rayo (0.7-2.0) mmol/L Calcium 8.7 (8.4-10.2) mg/dL Total Bilirubin 1.5 H (0.2-1.3) mg/dL AST 35 (17-59) U/L ALT 21 (4-49) U/L Alkaline Phosphatase 86 (38-126) U/L Troponin I (0.000-0.034) ng/mL NT-Pro-B Natriuret Pep 245 pg/mL Total Protein 6.2 L (6.3-8.2) g/dL Albumin 3.7 (3.5-5.0) g/dL Coronavirus (PCR) (Not Detectd) 04/09/23 04/09/23 04/09/23 Range/Units 10:21 10:21 10:21 WBC (3.8-10.6) k/uL RBC (4.30-5.90) m/uL Hgb (13.0-17.5) gm/dL Hct (39.0-53.0) % MCV (80.0-100.0) fL MCH (25.0-35.0) pg MCHC (31.0-37.0) g/dL RDW (11.5-15.5) % Plt Count (150-450) k/uL MPV Neutrophils % % Lymphocytes % % Monocytes % % Eosinophils % % Basophils % % Neutrophils # (1.3-7.7) k/uL Lymphocytes # (1.0-4.8) k/uL Monocytes # (0-1.0) k/uL Eosinophils # (0-0.7) k/uL Basophils # (0-0.2) k/uL PT (9.0-12.0) sec INR (<1.2) APTT (22.0-30.0) sec Sodium (137-145) mmol/L Potassium (3.5-5.1) mmol/L Chloride (98-107) mmol/L Carbon Dioxide (22-30) mmol/L Anion Gap mmol/L BUN (9-20) mg/dL Creatinine (0.66-1.25) mg/dL Est GFR (CKD-EPI)AfAm (>60 ml/min/1.73 sqM) Est GFR (CKD-EPI)NonAf (>60 ml/min/1.73 sqM) Glucose (74-99) mg/dL Plasma Lactic Acid Rayo 1.3 (0.7-2.0) mmol/L Calcium (8.4-10.2) mg/dL Total Bilirubin (0.2-1.3) mg/dL AST (17-59) U/L ALT (4-49) U/L Alkaline Phosphatase (38-126) U/L Troponin I <0.012 (0.000-0.034) ng/mL NT-Pro-B Natriuret Pep pg/mL Total Protein (6.3-8.2) g/dL Albumin (3.5-5.0) g/dL Coronavirus (PCR) Not Detected (Not Detectd) Disposition Clinical Impression: Tracheobronchitis Disposition: HOME SELF-CARE Condition: Stable Instructions (If sedation given, give patient instructions): Acute Bronchitis (ED) Additional Instructions: Please return to the Emergency Department if symptoms worsen or any other concerns. Prescriptions: Doxycycline [Vibramycin] 100 mg PO BID #20 capsule Is patient prescribed a controlled substance at d/c from ED?: No Referrals: Sowmya Bethea MD [Primary Care Provider] - 1-2 days Time of Disposition: 12:07
[2023-04-09 10:41] LABS: Basophils % (A) 0 %; Eosinophils # (A) 0.2 k/uL (0-0.7); Eosinophils % (A) 1 %; HCT 40.5 % (39.0-53.0); HGB 13.9 gm/dL (13.0-17.5); Lymphocytes # (A) 1.1 k/uL (1.0-4.8); Lymphocytes % (A) 8 %; MCHC 34.2 g/dL (31.0-37.0); MCV 99.4 fL (80.0-100.0); Mean Platelet Volume 9.5; Monocytes # (A) 0.8 k/uL (0-1.0); Monocytes % (A) 6 %; Neutrophils # (A) 10.6 k/uL (1.3-7.7); Neutrophils % (A) 82 %; Platelet Count 144 k/uL (150-450); RBC 4.08 m/uL (4.30-5.90); RDW 12.8 % (11.5-15.5); WBC 12.8 k/uL (3.8-10.6)
[2023-04-09 10:51] LABS: INR 1.1 (<1.2); Partial Thromboplastin Time 29.4 sec (22.0-30.0); Prothrombin Time 11.4 sec (9.0-12.0)
[2023-04-09 10:56] LABS: ALT 21 U/L (4-49); African American GFR (CKD) 82 (>60 ml/min/1.73 sqM); Anion Gap 6 mmol/L; Blood Urea Nitrogen 13 mg/dL (9-20); Calcium 8.7 mg/dL (8.4-10.2); Carbon Dioxide 25 mmol/L (22-30); Chloride 108 mmol/L (98-107); Glucose 99 mg/dL (74-99); Non-African American GFR(CKD) 71 (>60 ml/min/1.73 sqM); Sodium 139 mmol/L (137-145)
[2023-04-09 10:59] LABS: Potassium 4.6 mmol/L (3.5-5.1); Total Protein 6.2 g/dL (6.3-8.2)
[2023-04-09 11:00] LABS: AST 35 U/L (17-59); Albumin 3.7 g/dL (3.5-5.0); Alkaline Phosphatase 86 U/L (38-126); Total Bilirubin 1.5 mg/dL (0.2-1.3)
--- NOTE | 2023-04-09 11:02 | XR ---
EXAMINATION TYPE: XR chest 2V DATE OF EXAM: 04/09/2023 10:49 AM COMPARISON: Chest radiographs from 10/26/2022 TECHNIQUE: XR chest 2V Frontal and lateral views of the chest. CLINICAL INDICATION:Male, 83 years old with history of difficulty breathing; FINDINGS: Lungs/Pleura: There is flattening of the diaphragm with increased lucency of the lungs. No evidence o f pneumothorax, pleural effusion or focal consolidation. Pulmonary vascularity: Unremarkable. Heart/mediastinum: Cardiomediastinal silhouette is unremarkable. Musculoskeletal: No acute osseous pathology. IMPRESSION: 1. No acute cardiopulmonary disease process. 2. COPD changes.
[2023-04-09 11:03] LABS: NT-Pro-B-Type Natriuretic Pept 245 pg/mL
[2023-04-09] MEDS ORDERED: cefTRIAXone IN SWFI 1,000 MG/10 ML SYRINGE IVP STA (12:05)
[2023-04-09 12:31] VITALS: BP 133/72; PULSE 72; RESP 18
== END 2023-04-09 12:31 | disposition home or self-care (01) ==
LOC: EC 09:26
DX: J40 Bronchitis, not specified as acute or chronic (principal); J44.9 Chronic obstructive pulmonary disease, unspecified; K21.9 Gastro-esophageal reflux disease without esophagitis; I48.91 Unspecified atrial fibrillation; Z87.891 Personal history of nicotine dependence; Z79.01 Long term (current) use of anticoagulants; Z79.899 Other long term (current) drug therapy; Z20.822 Contact with and (suspected) exposure to COVID-19
CPT/HCPCS: 99285 ×2; 96374 ×2; 36415; 93005; 83880; 80053; 83605; 84484; 85025; 85610; 85730; 87635; 71046; J0696

== ENCOUNTER → 2023-07-11 | Outpatient (CLI) | payer MEDICARE, BC ==
--- NOTE | 2023-07-11 12:19 | FL ---
Exam Date: 07/11/2023 11:27 AM. Modified barium swallow for dysphagia. Consistencies administered: Various consistency of barium. Fluoro time: 1 minute 15 seconds No images were sent to PACS. Please see speech pathology report. DAP: Not reported [id number]
== END | disposition home or self-care (01) ==
LOC: RADFLMAIN 10:48
PROVIDERS: ATTEND Internal Medicine Gastroenterology
DX: K21.9 Gastro-esophageal reflux disease without esophagitis (principal)
CPT/HCPCS: 74230

== ENCOUNTER 2024-03-22 11:46 | Emergency (ER) | payer MEDICARE, BC ==
[2024-03-22 11:49] VITALS: RESP 18; TEMP 98
[2024-03-22] MEDS: SODIUM CHLORIDE 0.9% 1,000 ML IV STA (12:27)
--- NOTE | 2024-03-22 12:51 | ED ---
Dizziness HPI - General Chief Complaint: Dizziness Stated Complaint: Dizziness Time Seen by Provider: 03/22/24 12:03 Source: patient, RN notes reviewed Mode of arrival: wheelchair Limitations: no limitations - History of Present Illness Initial Comments: 83-year-old male presents emergency room with family for evaluation of lightheadedness, dizziness lasted 4 days. Patient probably has not been eating as much as usual has been keeping up with fluids but states he gets very lightheaded when he starts walking. He does complain of mild headache denies chest pain shortness of breath denies any abdominal pain denies any extremity weakness denies any recent illnesses or medication adjustments. - Related Data Home Medications Medication Instructions Recorded Confirmed Acetaminophen Tab [Tylenol] 1,000 mg PO BID 11/18/19 11/26/22 Tamsulosin [Flomax] 0.4 mg PO DAILY 12/03/20 11/26/22 Atorvastatin [Lipitor] 20 mg PO HS 01/10/21 11/26/22 Rivaroxaban [Xarelto] 20 mg PO HS 05/30/21 11/26/22 Furosemide [Lasix] 20 mg PO DAILY 12/27/21 11/26/22 Cholecalciferol [Vitamin D3 (25 25 mcg PO DAILY 10/26/22 11/26/22 Mcg = 1000 Iu)] Fluticasone Nasal [place] [Flonase 2 sprays EA NOSTRIL DAILY PRN 10/26/22 11/26/22 Nasal [place]] Omeprazole [PriLOSEC] 20 mg PO DAILY 10/26/22 11/26/22 Pantoprazole [Protonix] 40 mg PO DAILY 11/26/22 11/26/22 Previous Rx's Medication Instructions Recorded Amiodarone [Cordarone] 100 mg PO DAILY #30 tab 10/28/22 Docusate [Colace] 100 mg PO BID #60 capsule 11/26/22 Doxycycline [Vibramycin] 100 mg PO BID #20 capsule 04/09/23 Meclizine [Antivert] 25 mg PO TID PRN #15 tab 03/22/24 Sulfamethox-Tmp 800-160Mg [Bactrim 1 each PO Q12HR #20 tab 03/22/24 Ds] Allergies Allergy/AdvReac Type Severity Reaction Status Date / Time No Known Allergies Allergy Verified 03/22/24 11:49 Review of Systems ROS Statement: Those systems with pertinent positive or pertinent negative responses have been documented in the HPI. ROS Other: All systems not noted in ROS Statement are negative. Past Medical History Past Medical History: Atrial Fibrillation, COPD, GERD/Reflux Additional Past Medical History / Comment(s): Cancer R ureter, hx. of hydronephrosis, bladder ca, skin cancer. States no HTN-takes rx for thickened wall of herart., enlarged prostate. GERD. History of Any Multi-Drug Resistant Organisms: None Reported Past Surgical History: Ablation, Back Surgery, Joint Replacement, Tonsillectomy Additional Past Surgical History / Comment(s): Distal R ureterectomy with ureteral reimplant., removal of skin cancer from rt shoulder/R bicep, colonoscopy, total Right Hip, L knee replacement, Cataracts, cardioversion. Past Anesthesia/Blood Transfusion Reactions: No Reported Reaction Past Psychological History: No Psychological Hx Reported Smoking Status: Former smoker Past Alcohol Use History: Rare Past Drug Use History: None Reported - Past Family History Mother Family Medical History: COPD Additional Family Medical History / Comment(s): Mother at age 77 from Emphysema. Father Family Medical History: Cancer Additional Family Medical History / Comment(s): Father of complications with his prostate cancer at the age of 65 yrs. General Exam Limitations: no limitations General appearance: alert, in no apparent distress Head exam: Present: atraumatic, normocephalic, normal inspection Eye exam: Present: normal appearance, PERRL, EOMI. Absent: scleral icterus, conjunctival injection, periorbital swelling ENT exam: Present: mucous membranes moist. Absent: normal exam, normal oropharynx (No dentition) Neck exam: Present: normal inspection, full ROM. Absent: tenderness, meningismus, lymphadenopathy Respiratory exam: Present: normal lung sounds bilaterally. Absent: respiratory distress, wheezes, rales, rhonchi, stridor Cardiovascular Exam: Present: regular rate, normal rhythm, normal heart sounds. Absent: systolic murmur, diastolic murmur, rubs, gallop, clicks Extremities exam: Present: normal inspection, full ROM, normal capillary refill. Absent: tenderness, pedal edema, joint swelling, calf tenderness Back exam: Present: normal inspection, full ROM. Absent: tenderness Neurological exam: Present: alert, oriented X3, CN II-XII intact, reflexes normal. Absent: motor sensory deficit Skin exam: Present: warm, dry, intact, normal color. Absent: rash Course Vital Signs 03/22/24 03/22/24 03/22/24 11:47 14:16 14:17 Temperature 98.0 F Pulse Rate 85 Pulse Rate [ 63 65 Parakeet Raiser ] Respiratory 18 Rate Blood Pressure 130/65 Blood Pressure 126/62 [Right Arm] Blood Pressure 118/60 [Standing] O2 Sat by Pulse 95 Oximetry 03/22/24 14:20 Temperature Pulse Rate 65 Pulse Rate [ Parakeet Raiser ] Respiratory 18 Rate Blood Pressure 118/60 Blood Pressure [Right Arm] Blood Pressure [Standing] O2 Sat by Pulse 98 Oximetry EKG Findings - EKG Comments: EKG Findings:: EKG performed at 12: 35 A-fib with a rate of 66 QRS 132 QT/QTc 390/407 - EKG Results: EKG: interpreted by CHRISTA Medical Decision Making - Medical Decision Making Was pt. sent in by a medical professional or institution (, PA, EMBOSSING TOOL SETTER, urgent care, hospital, or penitentiary...) When possible be specific @ -No Did you speak to anyone other than the patient for history (EMS, parent, family, police, friend...)? What history was obtained from this source @ -No Did you review nursing and triage notes (agree or disagree)? Why? @ -I reviewed and agree with nursing and triage notes Were old charts reviewed (outside hosp., previous admission, EMS record, old EKG, old radiological studies, urgent care reports/EKG's, penitentiary records)? Report findings @ -No old charts were reviewed Differential Diagnosis (chest pain, altered mental status, abdominal pain women, abdominal pain men, vaginal bleeding, weakness, fever, dyspnea, syncope, headache, dizziness, GI bleed, back pain, seizure, CVA, palpatations, mental health, musculoskeletal)? @ -Differential Dizziness: Benign paroxysmal positional Vertigo, Menieres disease, otitis media, acoustic neuroma, vertebrobasilar insufficiency, cerebellar stroke, encephalitis, hypovolemic, arrhythmia, coronary artery syndrome, anemia, this is not meant to be an all-inclusive list EKG interpreted by me (3pts min.). @ -As above X-rays interpreted by me (1pt min.). @ -None done CT interpreted by me (1pt min.). @ -CT brain shows no acute intracranial process U/S interpreted by me (1pt. min.). @ -None done What testing was considered but not performed or refused? (CT, X-rays, U/S, labs)? Why? @ -None What meds were considered but not given or refused? Why? @ -None Did you discuss the management of the patient with other professionals (professionals i.e. Dr., PA, EMBOSSING TOOL SETTER, lab, RT, psych nurse, professor of social work, bank consultant, teacher, flight radio officer, case making machine operator)? Give summary @ -No Was smoking cessation discussed for >3mins.? @ -No Was critical care preformed (if so, how long)? @ -No Were there social determinants of health that impacted care today? How? (Homelessness, low income, unemployed, alcoholism, drug addiction, transportation, low edu. Level, literacy, decrease access to med. care, [place] [facility], rehab)? @ -No Was there de-escalation of care discussed even if they declined (Discuss DNR or withdrawal of care, Hospice)? DNR status @ -No What co-morbidities impacted this encounter? (DM, HTN, Smoking, COPD, CAD, Cancer, CVA, ARF, Chemo, Hep., AIDS, mental health diagnosis, sleep apnea, morbid obesity)? @ -A-fib Was patient admitted / discharged? Hospital course, mention meds given and route, prescriptions, significant lab abnormalities, going to OR and other pertinent info. @ -Discharge patient is found to have evidence of urinary tract infection. Patient was given Rocephin urine culture was added. Patient discharged on 10- day course of oral antibiotics. Patient will have follow-up with his urologist, PCP. Patient feels improved at this time. Will be given Antivert for dizziness. Undiagnosed new problem with uncertain prognosis? @ -No Drug Therapy requiring intensive monitoring for toxicity (Heparin, Nitro, Insulin, Cardizem)? @ -No Were any procedures done? @ -No Diagnosis/symptom? @ -UTI, dizziness Acute, or Chronic, or Acute on Chronic? @ -Acute Uncomplicated (without systemic symptoms) or Complicated (systemic symptoms)? @ -Uncomplicated Side effects of treatment? @ -No Exacerbation, Progression, or Severe Exacerbation? @ -No Poses a threat to life or bodily function? How? (Chest pain, USA, NH, pneumonia, PE, COPD, DKA, ARF, appy, cholecystitis, CVA, Diverticulitis, Homicidal, Suicidal, threat to staff... and all critical care pts) @ -No - Lab Data Result diagrams: 03/22/24 12:21 03/22/24 12:21 Lab Results 03/22/24 03/22/24 03/22/24 Range/Units 12:21 12:21 12:21 WBC 9.9 (3.8-10.6) k/uL RBC 3.76 L (4.30-5.90) m/uL Hgb 11.5 L (13.0-17.5) gm/dL Hct 36.6 L (39.0-53.0) % MCV 97.5 (80.0-100.0) fL MCH 30.5 (25.0-35.0) pg MCHC 31.3 (31.0-37.0) g/dL RDW 13.1 (11.5-15.5) % Plt Count 187 (150-450) k/uL MPV 9.6 Neutrophils % 82 % Lymphocytes % 8 % Monocytes % 8 % Eosinophils % 0 % Basophils % 0 % Neutrophils # 8.1 H (1.3-7.7) k/uL Lymphocytes # 0.8 L (1.0-4.8) k/uL Monocytes # 0.8 (0-1.0) k/uL Eosinophils # 0.0 (0-0.7) k/uL Basophils # 0.0 (0-0.2) k/uL Hypochromasia Slight Sodium 141 (137-145) mmol/L Potassium 4.2 (3.5-5.1) mmol/L Chloride 113 H (98-107) mmol/L Carbon Dioxide 24 (22-30) mmol/L Anion Gap 4 mmol/L BUN 19 (9-20) mg/dL Creatinine 1.09 (0.66-1.25) mg/dL Est GFR (CKD-EPI)AfAm 71 (>60 ml/min/1.73 sqM) Est GFR (CKD-EPI)NonAf 62 (>60 ml/min/1.73 sqM) Glucose 106 H (74-99) mg/dL Plasma Lactic Acid Rayo (0.7-2.0) mmol/L Calcium 8.5 (8.4-10.2) mg/dL Total Bilirubin 0.7 (0.2-1.3) mg/dL AST 19 (17-59) U/L ALT 13 (4-49) U/L Alkaline Phosphatase 80 (38-126) U/L Troponin I (0.000-0.034) ng/mL Total Protein 5.2 L (6.3-8.2) g/dL Albumin 3.2 L (3.5-5.0) g/dL Urine Color Yellow Urine Appearance Cloudy (Clear) Urine pH 6.0 (5.0-8.0) Ur Specific Valentine 1.017 (1.001-1.035) Urine Protein 1+ H (Negative) Urine Glucose (UA) Negative (Negative) Urine Ketones Negative (Negative) Urine Blood Small H (Negative) Urine Nitrite Positive (Negative) Urine Bilirubin Negative (Negative) Urine Urobilinogen <2.0 (<2.0) mg/dL Ur Leukocyte Esterase Large H (Negative) Urine RBC 44 H (0-5) /hpf Urine WBC >182 H (0-5) /hpf Urine WBC Clumps Rare H (None) /hpf Ur Squamous Epith Cells <1 (0-4) /hpf Urine Bacteria Few H (None) /hpf Urine Mucus Few H (None) /hpf 03/22/24 03/22/24 Range/Units 12:21 12:21 WBC (3.8-10.6) k/uL RBC (4.30-5.90) m/uL Hgb (13.0-17.5) gm/dL Hct (39.0-53.0) % MCV (80.0-100.0) fL MCH (25.0-35.0) pg MCHC (31.0-37.0) g/dL RDW (11.5-15.5) % Plt Count (150-450) k/uL MPV Neutrophils % % Lymphocytes % % Monocytes % % Eosinophils % % Basophils % % Neutrophils # (1.3-7.7) k/uL Lymphocytes # (1.0-4.8) k/uL Monocytes # (0-1.0) k/uL Eosinophils # (0-0.7) k/uL Basophils # (0-0.2) k/uL Hypochromasia Sodium (137-145) mmol/L Potassium (3.5-5.1) mmol/L Chloride (98-107) mmol/L Carbon Dioxide (22-30) mmol/L Anion Gap mmol/L BUN (9-20) mg/dL Creatinine (0.66-1.25) mg/dL Est GFR (CKD-EPI)AfAm (>60 ml/min/1.73 sqM) Est GFR (CKD-EPI)NonAf (>60 ml/min/1.73 sqM) Glucose (74-99) mg/dL Plasma Lactic Acid Rayo 1.3 (0.7-2.0) mmol/L Calcium (8.4-10.2) mg/dL Total Bilirubin (0.2-1.3) mg/dL AST (17-59) U/L ALT (4-49) U/L Alkaline Phosphatase (38-126) U/L Troponin I <0.012 (0.000-0.034) ng/mL Total Protein (6.3-8.2) g/dL Albumin (3.5-5.0) g/dL Urine Color Urine Appearance (Clear) Urine pH (5.0-8.0) Ur Specific Valentine (1.001-1.035) Urine Protein (Negative) Urine Glucose (UA) (Negative) Urine Ketones (Negative) Urine Blood (Negative) Urine Nitrite (Negative) Urine Bilirubin (Negative) Urine Urobilinogen (<2.0) mg/dL Ur Leukocyte Esterase (Negative) Urine RBC (0-5) /hpf Urine WBC (0-5) /hpf Urine WBC Clumps (None) /hpf Ur Squamous Epith Cells (0-4) /hpf Urine Bacteria (None) /hpf Urine Mucus (None) /hpf Disposition Clinical Impression: UTI (urinary tract infection), Dizziness Disposition: HOME SELF-CARE Condition: Stable Instructions (If sedation given, give patient instructions): Dizziness (ED) Additional Instructions: Please return to the Emergency Department if symptoms worsen or any other concerns. Prescriptions: Meclizine [Antivert] 25 mg PO TID PRN #15 tab PRN Reason: Vertigo Sulfamethox-Tmp 800-160Mg [Bactrim Ds] 1 each PO Q12HR #20 tab Is patient prescribed a controlled substance at d/c from ED?: No Referrals: Sowmya Bethea MD [Primary Care Provider] - 1-2 days Time of Disposition: 15:14
[2024-03-22 12:52] LABS: ALT 13 U/L (4-49); AST 19 U/L (17-59); African American GFR (CKD) 71 (>60 ml/min/1.73 sqM); Albumin 3.2 g/dL (3.5-5.0); Alkaline Phosphatase 80 U/L (38-126); Anion Gap 4 mmol/L; Blood Urea Nitrogen 19 mg/dL (9-20); Calcium 8.5 mg/dL (8.4-10.2); Carbon Dioxide 24 mmol/L (22-30); Chloride 113 mmol/L (98-107); Glucose 106 mg/dL (74-99); Non-African American GFR(CKD) 62 (>60 ml/min/1.73 sqM); Potassium 4.2 mmol/L (3.5-5.1); Sodium 141 mmol/L (137-145); Total Bilirubin 0.7 mg/dL (0.2-1.3); Total Protein 5.2 g/dL (6.3-8.2)
[2024-03-22 13:17] LABS: Basophils % (A) 0 %; Eosinophils % (A) 0 %; HCT 36.6 % (39.0-53.0); HGB 11.5 gm/dL (13.0-17.5); Hypochromasia Slight; Lymphocytes # (A) 0.8 k/uL (1.0-4.8); Lymphocytes % (A) 8 %; MCH 30.5 pg (25.0-35.0); MCHC 31.3 g/dL (31.0-37.0); MCV 97.5 fL (80.0-100.0); Mean Platelet Volume 9.6; Monocytes # (A) 0.8 k/uL (0-1.0); Monocytes % (A) 8 %; Neutrophils # (A) 8.1 k/uL (1.3-7.7); Neutrophils % (A) 82 %; Platelet Count 187 k/uL (150-450); RBC 3.76 m/uL (4.30-5.90); RDW 13.1 % (11.5-15.5); WBC 9.9 k/uL (3.8-10.6)
--- NOTE | 2024-03-22 13:22 | CT ---
EXAMINATION TYPE: CT brain wo con CT DLP: 1154.6 mGycm, Automated exposure control for dose reduction was used. DATE OF EXAM: 03/22/2024 1:14 PM COMPARISON: 10/26/2022, 2 03/22/2023. CLINICAL INDICATION:Male, 83 years old with history of dizziness, DIZZY TECHNIQUE: Brain: Axial CT images of the brain were obtained with coronal and sagittal reformats created and rev iewed. Contrast used: None. Oral contrast used: None. FINDINGS: Brain: Extra-axial spaces: No abnormal extra-axial fluid collections. Ventricular system: Within normal limits Cerebral parenchyma: No acute intraparenchymal hemorrhage or mass effect. The baum-white junction is well differentiated. Cerebellum: Unremarkable. Mass effect: No evidence of midline shift. Intracranial vasculature: unremarkable Soft tissues: Normal. Calvarium/osseous structures: No depressed skull fracture. Paranasal sinuses and mastoid air cells: Mild scattered paranasal sinus disease. Visualized orbits: Bilateral aphakia IMPRESSION: No acute intracranial process.
[2024-03-22 14:21] LABS: Appearance,Urine Cloudy (Clear); Bacteria,Urine Few /hpf; Bilirubin,Urine Negative (Negative); Blood,Urine Small (Negative); Color,Urine Yellow; Glucose,Urine (UA) Negative (Negative); Ketones,Urine Negative (Negative); Leukocyte Esterase,Urine Large (Negative); Mucus,Urine Few /hpf; Nitrite,Urine Positive (Negative); Protein,Urine 1+ (Negative); RBC,Urine 44 /hpf (0-5); Specific Gravity,Urine 1.017 (1.001-1.035); Squamous Epithelial Cell,Urine <1 /hpf (0-4); Urobilinogen,Urine <2.0 mg/dL (<2.0); WBC,Urine >182 /hpf (0-5)
[2024-03-22] MEDS: cefTRIAXone IN SWFI 1,000 MG/10 ML SYRINGE IVP STA (15:29)
[2024-03-22 15:45] VITALS: BP 140/95; PULSE 74
== END 2024-03-22 15:45 | disposition home or self-care (01) ==
LOC: EC 11:46
DX: N39.0 Urinary tract infection, site not specified (principal); R42 Dizziness and giddiness; Z87.891 Personal history of nicotine dependence
CPT/HCPCS: 36415; 93005; 80053; 83605; 84484; 85025; 81001; 87086; 70450; 99284; 96374; 96361; J0696

== ENCOUNTER 2024-07-24 08:11 | Day surgery (SDC) | payer MEDICARE, BC ==
[~2024-07-24 08:11] MED LIST changes: -LACTATED RINGERS 1,000 ML IV SCH; -SODIUM CHLORIDE 0.9% 1,000 ML IV SCH
[2024-07-24 08:47] VITALS: TEMP 97.1
[2024-07-24] MEDS: LACTATED RINGERS 1,000 ML IV SCH (08:58)
[2024-07-24] MEDS: IV FLUID CONTINUATION 1,000 ML IV ONE (08:59)
[2024-07-24] MEDS ORDERED: PROPOFOL 10 MG/ML 20 ML VIAL IV ONE (09:21)
[2024-07-24] MEDS ORDERED: LIDOCAINE 1% INJ 10MG/ML (20 ML MDV) ONE (09:21)
--- NOTE | 2024-07-24 09:24 | P.GSHP ---
History of Present Illness H&P Date: 07/24/24 Is a 4-year-old male presents today for screening colonoscopy and EGD. Patient patient has had increased complaints of epigastric pain and change in his bowel habits with constipation. Past Medical History Past Medical History: Atrial Fibrillation, Asthma, Cancer, COPD, GERD/Reflux, Hyperlipidemia, Hypertension, Prostate Disorder Additional Past Medical History / Comment(s): Cancer R ureter, hx. of hydronephrosis, bladder ca, skin cancer. States no HTN-takes rx for thickened wall of heart, enlarged prostate. History of Any Multi-Drug Resistant Organisms: None Reported Past Surgical History: Ablation, Back Surgery, Joint Replacement, Tonsillectomy Additional Past Surgical History / Comment(s): Distal R ureterectomy with ureteral reimplant, removal of skin cancer from rt shoulder/R bicep, colonoscopy, total Right Hip, L knee replacement, Cataracts, cardioversion. Past Anesthesia/Blood Transfusion Reactions: No Reported Reaction Smoking Status: Former smoker - Past Family History Mother Family Medical History: COPD Additional Family Medical History / Comment(s): Mother at age 77 from Emphysema. Father Family Medical History: Cancer Additional Family Medical History / Comment(s): Father of complications with his prostate cancer at the age of 65 yrs. Medications and Allergies Home Medications Medication Instructions Recorded Confirmed Type Acetaminophen Tab [Tylenol] 1,000 mg PO BID 11/18/19 07/24/24 History Tamsulosin [Flomax] 0.4 mg PO DAILY 12/03/20 07/24/24 History Atorvastatin [Lipitor] 20 mg PO HS 01/10/21 07/24/24 History Rivaroxaban [Xarelto] 20 mg PO HS 05/30/21 07/24/24 History Furosemide [Lasix] 20 mg PO DAILY 12/27/21 07/24/24 History Fluticasone Nasal [place] [Flonase 2 sprays EA NOSTRIL DAILY PRN 10/26/22 07/24/24 History Nasal [place]] Amiodarone [Cordarone] 100 mg PO DAILY #30 tab 10/28/22 07/24/24 Rx Pantoprazole [Protonix] 40 mg PO DAILY 11/26/22 07/24/24 History Meclizine [Antivert] 25 mg PO TID PRN #15 tab 03/22/24 07/24/24 Rx Famotidine 20 mg PO DAILY 07/21/24 07/24/24 History Montelukast [Singulair] 10 mg PO DAILY 07/21/24 07/24/24 History Allergies Allergy/AdvReac Type Severity Reaction Status Date / Time No Known Allergies Allergy Verified 07/24/24 08:40 Surgical - Exam Vital Signs Temp Pulse Resp BP Pulse Ox 97.1 F L 73 18 117/64 99 07/24/24 08:42 07/24/24 08:42 07/24/24 08:42 07/24/24 08:42 07/24/24 08:42 - General well developed, well nourished, no distress - Eyes PERRL - ENT normal pinna - Neck no masses - Respiratory normal expansion - Cardiovascular Rhythm: regular - Abdomen Abdomen: soft, non tender Assessment and Plan Assessment: Change in bowel habits, epigastric pain, constipation. Will perform EGD and colonoscopy.
--- NOTE | 2024-07-24 10:05 | P.OP ---
Date of Procedure: 07/24/24 Preoperative Diagnosis: Epigastric Maulik pain Constipation Change in bowel habits Postoperative Diagnosis: Duodenal polyp Antral gastritis Moderate size paraesophageal hiatal hernia Esophagitis Colon polyps Diverticulosis Procedure(s) Performed: EGD Colonoscopy Anesthesia: MAC Surgeon: Jonas Vela Pathology: other (Antrum, esophagus, colon polyps) Condition: stable Disposition: PACU Description of Procedure: The patient was placed on the endoscopy table in the lateral position. He recei hardeep IV sedation. The gas was placed oropharynx passed in the esophagus into the stomach. Scope was then placed in the pylorus. The first and second portion duodenum was examined. The second portion duodenum there was a villous type polyp. This was biopsied the cold forcep. Scope was brought back to the antrum this appeared minimal Flaim. A biopsy performed. The scope was then retroflexed and the Mainer of the stomach appeared normal. The GE junction was at 37 cm. Patient had a moderate size paraesophageal hiatal hernia. The distal esophagus mi minimally y inflamed m. A biopsy was performed. Proximal esophagus appeared normal. Scope withdrawn the patient. Next digital rectal exam was performed. This revealed no abnormality. Flex colonoscope was then placed patient anus passed throughout the entire colon. The ileocecal valve was visualized. In the cecum there was a large polypoid tumor. This was partially removed with a snare. Scope was back in the right colon and another polyp was seen this removed with a cold forcep. Scope was back in the transverse colon and there was significant diverticular changes. The descending colon there was more diverticular changes seen. In the sigmoid colon there is another large polyp seen was removed partially with the snare. The area was tattooed with ink spot. The scope back to the rectum this appeared normal. Scope withdrawn for the patient.
[2024-07-24 10:20] VITALS: BP 126/62; PULSE 56; RESP 17
== END 2024-07-24 10:50 | disposition home or self-care (01) ==
LOC: ORWHC2ENDO 08:11
PROVIDERS: ATTEND Surgery
DX: D12.5 Benign neoplasm of sigmoid colon (principal); D12.0 Benign neoplasm of cecum; D12.2 Benign neoplasm of ascending colon; K29.50 Unspecified chronic gastritis without bleeding; K31.7 Polyp of stomach and duodenum; K44.9 Diaphragmatic hernia without obstruction or gangrene; K31.A11 Gastric intestinal metaplasia without dysplasia, involving the antrum; K21.00 Gastro-esophageal reflux disease with esophagitis, without bleeding; K57.30 Diverticulosis of large intestine without perforation or abscess without bleeding; I10 Essential (primary) hypertension; E78.5 Hyperlipidemia, unspecified; C44.90 Unspecified malignant neoplasm of skin, unspecified; I48.91 Unspecified atrial fibrillation; J44.9 Chronic obstructive pulmonary disease, unspecified; C66.1 Malignant neoplasm of right ureter; C67.9 Malignant neoplasm of bladder, unspecified; M54.50 Low back pain, unspecified; Z87.891 Personal history of nicotine dependence; Z90.89 Acquired absence of other organs; Z79.02 Long term (current) use of antithrombotics/antiplatelets; Z79.899 Other long term (current) drug therapy
CPT/HCPCS: 88305; 45380; 45385; 43239; 44404; J2003; J2704

== ENCOUNTER 2024-08-25 11:47 | Day surgery (SDC) | payer MEDICARE, BC ==
[2024-08-22 10:13] VITALS: BMI 24.1
[~2024-08-25 11:47] MED LIST changes: +LACTATED RINGERS 1,000 ML IV SCH; -LIDOCAINE 1% (10MG/ML) FOR IV START INTRADERMA PRN
[2024-08-25 12:23] VITALS: RESP 16; TEMP 97.7
[2024-08-25] MEDS: IV FLUID CONTINUATION 1,000 ML IV ONE (12:32)
[2024-08-25] MEDS ORDERED: LIDOCAINE 1% INJ 10MG/ML (20 ML MDV) ONE (13:32)
[2024-08-25] MEDS ORDERED: PROPOFOL 10 MG/ML 20 ML VIAL IV ONE (13:32)
--- NOTE | 2024-08-25 13:34 | P.GSHP ---
History of Present Illness H&P Date: 08/25/24 Chief Complaint: History of colon polyps Is an 84-year-old male presents today for colonoscopy. Patient pres patient has a history of colon polyps. Past Medical History Past Medical History: Atrial Fibrillation, Asthma, Cancer, COPD, GERD/Reflux, Hyperlipidemia, Hypertension, Prostate Disorder Additional Past Medical History / Comment(s): Cancer R ureter, hx. of hydronephrosis, bladder ca, skin cancer. States no HTN-takes rx for thickened wall of heart, enlarged prostate. History of Any Multi-Drug Resistant Organisms: None Reported Past Surgical History: Ablation, Back Surgery, Joint Replacement, Tonsillectomy Additional Past Surgical History / Comment(s): Distal R ureterectomy with ureteral reimplant, removal of skin cancer from rt shoulder/R bicep, colonoscopy, total Right Hip, L knee replacement, Cataracts, cardioversion. Past Anesthesia/Blood Transfusion Reactions: No Reported Reaction Additional Past Anesthesia/Blood Transfusion Reaction / Comment(s): no blood transfusion Smoking Status: Former smoker - Past Family History Mother Family Medical History: COPD Additional Family Medical History / Comment(s): Mother at age 77 from Emphysema. Father Family Medical History: Cancer Additional Family Medical History / Comment(s): Father of complications with his prostate cancer at the age of 65 yrs. Medications and Allergies Home Medications Medication Instructions Recorded Confirmed Type Acetaminophen Tab [Tylenol] 1,000 mg PO BID 11/18/19 08/25/24 History Tamsulosin [Flomax] 0.4 mg PO DAILY 12/03/20 08/25/24 History Atorvastatin [Lipitor] 20 mg PO HS 01/10/21 08/25/24 History Rivaroxaban [Xarelto] 20 mg PO HS 05/30/21 08/22/24 History Furosemide [Lasix] 20 mg PO DAILY 12/27/21 08/25/24 History Amiodarone [Cordarone] 100 mg PO DAILY #30 tab 10/28/22 08/25/24 Rx Pantoprazole [Protonix] 40 mg PO DAILY 11/26/22 08/25/24 History Famotidine 20 mg PO DAILY 07/21/24 08/25/24 History Montelukast [Singulair] 10 mg PO DAILY 07/21/24 08/25/24 History Ferrous Sulfate [Feosol] 325 mg PO BID 08/22/24 08/25/24 History Allergies Allergy/AdvReac Type Severity Reaction Status Date / Time No Known Allergies Allergy Verified 08/25/24 12:25 Surgical - Exam Vital Signs Temp Pulse Resp BP Pulse Ox 97.7 F 72 16 140/69 98 08/25/24 12:21 08/25/24 12:21 08/25/24 12:21 08/25/24 12:21 08/25/24 12:21 - General well developed, well nourished, no distress - Eyes PERRL - ENT normal pinna - Neck no masses - Respiratory normal expansion - Cardiovascular Rhythm: regular - Abdomen Abdomen: soft, non tender Assessment and Plan Assessment: History of colon polyps. Will perform colonoscopy.
--- NOTE | 2024-08-25 14:05 | P.OP ---
Date of Procedure: 08/25/24 Preoperative Diagnosis: History of colon polyps Postoperative Diagnosis: Multiple colon polyps Procedure(s) Performed: Colonoscopy Anesthesia: MAC Surgeon: Jonas Vela Pathology: other (Colon polyps) Condition: stable Disposition: PACU Description of Procedure: Patient is placed on the endoscopy table in the lateral position. He received IV sedation. Digital rectal exams performed. This revealed a few external hemorrhoids. The flexible colonoscope was then placed patient anus and passed throughout the colon. In the right colon there was a polyp seen. This removed with the snare. Scope was withdrawn and in the transverse colon there was diverticular changes noted. In the left colon there was another polyp seen. This removed with a cold forcep and snare. The scope was then brought back to the sigmoid colon there is more diverticular changes seen. There was a large polyp which was incompletely removed with the snare. The polyp was too big to be removed endoscopically. The area was tattooed. The endoscope was back to the rectum this appeared normal. Scope withdrawn for the patient.
[2024-08-25 14:22] VITALS: BP 123/62; PULSE 57
== END 2024-08-25 14:57 | disposition home or self-care (01) ==
LOC: ORWHC2ENDO 11:47
PROVIDERS: ATTEND Surgery
DX: D12.3 Benign neoplasm of transverse colon (principal); D12.4 Benign neoplasm of descending colon; I48.91 Unspecified atrial fibrillation; K21.9 Gastro-esophageal reflux disease without esophagitis; J45.909 Unspecified asthma, uncomplicated; E78.5 Hyperlipidemia, unspecified; C68.0 Malignant neoplasm of urethra; C67.9 Malignant neoplasm of bladder, unspecified; I11.0 Hypertensive heart disease with heart failure; I50.9 Heart failure, unspecified; Z85.828 Personal history of other malignant neoplasm of skin; Z90.89 Acquired absence of other organs; Z96.652 Presence of left artificial knee joint; Z87.891 Personal history of nicotine dependence; Z79.02 Long term (current) use of antithrombotics/antiplatelets; Z79.899 Other long term (current) drug therapy
CPT/HCPCS: 88305; 45385; J2003; J2704; 44404

== ENCOUNTER → 2024-10-10 | Outpatient (CLI) | payer MEDICARE, BC ==
[2024-10-10 19:43] LABS: ALT 22 U/L (10-49); AST 15 U/L (14-35); Albumin 3.9 g/dL (3.8-4.9); Alkaline Phosphatase 99 U/L (41-126); BUN/Creat Ratio 10.64 Ratio (12.00-20.00); Blood Urea Nitrogen 11.7 mg/dL (9.0-27.0); Chloride 112 mmol/L (96-109); Globulin 1.5 g/dL (1.6-3.3); Glucose 97 mg/dL (70-110); Potassium 4.7 mmol/L (3.5-5.5); Sodium 147 mmol/L (135-145); Total Bilirubin 0.3 mg/dL (0.3-1.2); Total Protein 5.4 g/dL (6.2-8.2)
== END | disposition home or self-care (01) ==
LOC: LABWHC1 12:27
PROVIDERS: ATTEND Nurse Practitioner
DX: I10 Essential (primary) hypertension (principal); I48.0 Paroxysmal atrial fibrillation; E78.2 Mixed hyperlipidemia
CPT/HCPCS: 36415; 80053; 84443

== ENCOUNTER → 2025-03-23 | Outpatient (CLI) | payer MEDICARE, BC ==
--- NOTE | 2025-03-23 12:19 | CT ---
EXAMINATION TYPE: CT chest wo con DATE OF EXAM: 03/23/2025 9:12 AM COMPARISON: 11/10/2022. CLINICAL INDICATION: Male, 84 years old with history of Z87.09 ,R05.3 CHRONIC COUGH; PHH, INCREASING COUGH TECHNIQUE: Multiple axial images were obtained through the chest. Sagittal and coronal reformats were created for review. MIP was performed on a separate workstation. Contrast used: mL of (None if empty) Oral contrast used: (None if empty) CT DLP: 539 mGycm, Automated exposure control for dose reduction was used. FINDINGS: LUNGS/ PLEURA: Stable atelectasis and/or scarring in the lung bases. No focal consolidation, pneumoth orax or pleural effusion. AIRWAY: Patent and unremarkable. HEART: Size within normal limits. Moderate coronary artery calcifications present. Thickening and ca lcification of aortic valve present. MEDIASTINUM: No gross evidence of adenopathy. Small hiatal hernia. VASCULATURE: No aortic aneurysm. MUSCULOSKELETAL: No acute osseous abnormalities SOFT TISSUES/LYMPH NODES: Unremarkable. LOWER NECK: No significant findings. UPPER ABDOMEN: No significant findings. IMPRESSION: 1. No acute process. Stable morphology to the lung parenchyma. 2. Moderate coronary artery atherosclerosis. 3. Mild aortic valve cusp patient's. 4. Small hiatal hernia. Follow up recommendations for incidental pulmonary nodules, if there are any, are per [employer]ischner?s [employer] or [employer]. https://radiopaedia.org/articles/xfcsjvwuql-[email or web address]?lang=us [facility], , 03/23/2025 12:16 PM
== END | disposition home or self-care (01) ==
LOC: RADCTMAIN 08:54
PROVIDERS: ATTEND Family Medicine
DX: I25.10 Atherosclerotic heart disease of native coronary artery without angina pectoris (principal); K44.9 Diaphragmatic hernia without obstruction or gangrene; Z87.09 Personal history of other diseases of the respiratory system
CPT/HCPCS: 71250